=== PATIENT | female | born 1945 | race Caucasian/White ===

== ENCOUNTER → 2023-08-02 08:10 | Outpatient (REF) | payer MEDICARE, OTHER, SELFPAY | LOC: RAD 08:10 | PROVIDERS: ATTENDING PHYSICIAN Nurse Practitioner | DX: E01.0 Iodine-deficiency related diffuse (endemic) goiter (principal); R13.10 Dysphagia, unspecified | CPT/HCPCS: 74230; 76536; 92611 ==

== ENCOUNTER → 2023-08-16 08:09 | Outpatient (REF) | payer MEDICARE, OTHER, SELFPAY | LOC: RAD 08:09 | PROVIDERS: ATTENDING PHYSICIAN Nurse Practitioner | DX: R09.89 Other specified symptoms and signs involving the circulatory and respiratory systems (principal) | CPT/HCPCS: 93880 ==

== ENCOUNTER → 2023-08-22 12:04 | Outpatient (REF) | payer MEDICARE, OTHER, SELFPAY ==
[2023-08-22 14:53] LABS: Blood Urea Nitrogen 18 mg/dl (7-17); Calcium 9.2 mg/dl (8.4-10.2); Carbon Dioxide 33 mmol/L (22-30); Chloride 100 mmol/L (98-107); Glucose 96 mg/dl (70-99); Potassium 3.8 mmol/L (3.5-5.1); Sodium 137 mmol/L (135-145); eGFR > 60.00
== END ==
LOC: HWLAB 12:04
PROVIDERS: ATTENDING PHYSICIAN Surgery Vascular Surgery; FAMILY PHYSICIAN Nurse Practitioner
DX: I65.23 Occlusion and stenosis of bilateral carotid arteries (principal)
CPT/HCPCS: 36415; 80048

== ENCOUNTER → 2023-08-28 08:44 | Outpatient (REF) | payer MEDICARE, OTHER, SELFPAY | LOC: HWRAD 08:44 | PROVIDERS: ATTENDING PHYSICIAN Surgery Vascular Surgery; FAMILY PHYSICIAN Nurse Practitioner | DX: I65.23 Occlusion and stenosis of bilateral carotid arteries (principal) | CPT/HCPCS: 70496; 70498; Q9967 ==

== ENCOUNTER 2023-09-24 07:04 | Inpatient (IN) | payer MEDICARE, OTHER, SELFPAY ==
[2023-09-20 09:22] VITALS: BMI 18.6
[2023-09-20 09:45] LABS: % Basophils 0.1 % (0-2); % Immature Granulocytes 0.2 % (0-0.5); % Lymphocytes 21.2 % (20.5-51.1); % Monocytes 7.4 % (1.7-9.3); % Neutrophils 70.1 % (42.2-75.2); Absolute Eosinophils 0.1 10^3/uL (0-0.7); Absolute Lymphocytes 1.9 10^3/uL (1.2-3.4); Absolute Monocytes 0.7 10^3/uL (0.1-0.6); Absolute Neutrophils 6.1 10^3/uL (1.4-6.5); Hematocrit 39.9 % (37.0-47.0); Hemoglobin 13.6 g/dL (12.0-16.0); Mean Corp Hgb Conc. 34.1 g/dL (33.0-37.0); Mean Corpuscular Hgb 30.2 pg (27.0-31.0); Mean Corpuscular Volume 88.7 fL (81.0-99.0); Mean Platelet Volume 11.7 fL (7.4-10.4); Nucleated Red Blood Cells % 0 %; Platelet Count 158 10^3/uL (130-400); Red Cell Dist. Width 13.2 % (11.5-14.5); White Blood Cell Count 8.8 10^3/uL (4.8-10.8)
[2023-09-20 09:54] LABS: PT 13.2 Sec (11.4-14.6)
[2023-09-20 09:55] LABS: APTT 34.4 Sec (23.4-35.0)
[2023-09-20 09:58] LABS: Blood Urea Nitrogen 18 mg/dl (7-17); Calcium 9.3 mg/dl (8.4-10.2); Carbon Dioxide 28 mmol/L (22-30); Chloride 105 mmol/L (98-107); Estimated Creatinine Clearance 55 ml/min; Glucose 162 mg/dl (70-99); Potassium 4.1 mmol/L (3.5-5.1); Sodium 137 mmol/L (135-145); eGFR > 60.00
[2023-09-24] VITALS (9 sets, daily range): BP systolic 129–188; BP diastolic 51–83; BMI 17.2; BMI 17.4
[2023-09-24] MEDS: PERIDEX 0.12% ORAL RINSE 15 ML PO (07:41)
[2023-09-24] MEDS: BACTROBAN NASAL 1 GRAM NASAL (07:41)
[2023-09-24] MEDS: NSS 500 IV (07:41)
--- NOTE | 2023-09-24 08:57 | W.SUR.PREOP ---
Pre-Operative Surgical Note
-
I have examined this patient prior to the performance of the scheduled procedure.
The patient's condition is unchanged from the time of the current History and
Physical and the patient is able to undergo the scheduled procedure.
--- NOTE | 2023-09-24 09:24 | PTCARENOTE ---
DELAY DUE TO EMERGENT CASE WITH DR DICKINSON, PT CONTACT MADE AWARE.
[2023-09-24] MEDS: VANCOCIN 200 IV (10:20)
[2023-09-24 12:38] LABS: ACT-LR - POC 376 Seconds (116-155)
[2023-09-24 13:34] LABS: ACT-LR - POC 287 Seconds (116-155)
--- NOTE | 2023-09-24 14:30 | W.IMMPOSTOP ---
Surgical Immed Post Op Note
-
Primary Surgeon: Uriel Sotomayor III, MD
Assisting Surgeon: Ras Gallego MD
Pre-op Diagnosis: Bilateral Carotid Stenosis
Post-op Diagnosis: Bilateral Carotid Stenosis
Procedure Performed: LEFT carotid endarterectomy
Anesthesia Type: General
Specimen / Cultures: NA
Estimated Blood Loss: 12cc
Complications: NA
Operative Findings:
Patient was prepped and draped in standard fashion. A 6cm incision was made and the carotid was dissected free. Proximal and distal control were obtained. Heparin was administered. A carotid arteriotomy was performed extending from the common
carotid to the proximal internal carotid. A shunt was subsequently placed and a freer was used to remove calcified plaque from the lumen. A piece of bovine pericardial patch was brought into the field and shaped to fit the site. The patch was then
sewn to the arteriotomy with a running 6-0 polypropylene suture. Hemostasis was confirmed, and the overlying muscle, subcutaneous tissue, and skin were closed with 2-0 vicryl, 3-0 vicryl, and 4-0 monocryl. Adhesive skin glue was applied above.
[2023-09-24] MEDS: CARDENE 200 IV (14:32)
[2023-09-24 14:35] LABS: Hematocrit 41.5 % (37.0-47.0); Hemoglobin 13.8 g/dL (12.0-16.0); Mean Corp Hgb Conc. 33.3 g/dL (33.0-37.0); Mean Corpuscular Volume 90.2 fL (81.0-99.0); Mean Platelet Volume 11.1 fL (7.4-10.4); Platelet Count 192 10^3/uL (130-400); Red Cell Dist. Width 13.1 % (11.5-14.5); White Blood Cell Count 14.1 10^3/uL (4.8-10.8)
--- NOTE | 2023-09-24 14:38 | CON.INTV ---
Consultation
Consultation Request
Date/Time Consultation Requested: 09/24/2023 - 121
Date/Time Consultation Performed: 09/24/2023 - 0
Requesting Provider: Colleen MOTT
Performing Provider: Osmel Bolton MD
Reason for Consultation: s/p left CEA
Medical History
-
Chief Complaint: Elective L-CEA
History of Present Illness:
77-year-old female active tobacco smoker with a past medical history of sleep apnea, PVD with claudication s/p right iliac artery stent, COPD, hyperlipidemia/hypertension who presents for elective left-sided carotid endarterectomy. Patient known to
[facility] via Dr. Sotomayor, with last office visit on 08/21/2023. At that office visit her imaging via CT angiogram was reviewed and she has severe bilateral carotid artery disease. 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
arterial disease with diffusely small caliber right common carotid artery with retrograde flow, making surgical intervention high risk. She has a high-grade left carotid artery stenosis that is amenable to surgical intervention and it was
recommended to proceed with a left-sided carotid endarterectomy. Operative risks and benefits were discussed and patient agreed to this procedure. Today she underwent left-sided carotid endarterectomy, with a EBL 12 cc and no immediate
complications. Patient was transferred to the ICU for postoperative care and riding teacher services consulted for additional management/recommendations.
When I saw the patient she was in bed, lethargic but easily arousable to voice, and desaturating to 87-88% with phlegm that you could hear when she coughed but she was not sufficiently expectorating despite me and the nurse encouraging her to do so.
Current heart rate 109, BP 129/55 and SpO2 92% on 5 L/min nasal cannula. Patient denies chest pain, headache, abdominal pain, fevers or chills. She mainly wanted to be left alone so she can go back to sleep.
Of note she follows with us in the office and last saw Joycelyn Johnson and Tianna Veloz on 04/30/2023 due to a hospital discharge follow-up with COPD. She was started on Anoro at that time and spirometry at that visit showed moderate obstruction. 6MWT
was stable without any need for O2 at that time. She was smoking a pack a day at that visit and admitted to smoking 1 PPD X 56 years. Smoke cessation was strongly encouraged. She had a CTA of the chest on 03/30/2023 showing mild GGO's in the RUL
with bilateral lower lobe peribronchial thickening with mucous plugging in the RLL. Repeat CT chest without contrast performed 2 months later showed resolution of the GGO in the RUL and mild paraseptal emphysema.
PMHx: Hyperlipidemia, chronic airway obstruction NEC, vitamin D deficiency, sleep apnea, PVD with claudication, JACINTA, anxiety, basal cell carcinoma, hypertension, PAD s/p right iliac artery stent, COPD, allergic rhinitis
PSHx: Ulnar nerve transposition, cholecystectomy, right-sided iliac artery stent ([facility] � 2010)
Past Medical History
Past Medical History: Other (Above as per HPI)
Past Surgical History: Other (Above as per HPI)
Social History
Tobacco: Smoker (1 PPD x 30 years)
Alcohol: None
Drug: None
Family History
Family History: Cancer (Father & brother (prostate cancer); mother (throat cancer))
Allergies / Home Medications
Allergies
Allergy/AdvReac Type Severity Reaction Status Date / Time
amoxicillin Allergy Rash Verified 09/24/23 07:48
atorvastatin [From Lipitor] Allergy muscle Verified 09/24/23 07:47
cramps
Cephalosporins Allergy Rash Verified 09/24/23 07:49
clarithromycin Allergy Rash Verified 09/24/23 07:48
levofloxacin [From Levaquin] Allergy Unknown Verified 09/24/23 07:48
niacin Allergy Unknown Verified 09/24/23 07:50
pneumococcal vaccine Allergy Swelling Verified 09/24/23 07:49
Sulfa (Sulfonamide Allergy Rash Verified 09/24/23 07:47
Antibiotics)
sulfisoxazole Allergy Rash Verified 09/24/23 07:47
potasium clavunate Allergy Unknown Uncoded 09/24/23 07:50
Home Medications
Medication Instructions Recorded Confirmed Last Taken Type
albuterol sulfate 90 mcg/actuation 2 puff inhalation R Q4 PRN 03/30/23 09/24/23 Unknown History
aerosol inhaler sob/wheezing
aspirin 325 mg tablet 325 mg PO HS Blood Clot 03/30/23 09/24/23 09/23/23 18:00 History
Prevention/Tx
losartan 50 mg tablet 50 mg PO HS Blood Pressure 03/30/23 09/24/23 09/23/23 18:00 History
pravastatin 80 mg tablet 80 mg PO HS High Cholesterol 03/30/23 09/24/23 09/23/23 18:00 History
cholecalciferol (vitamin D3) 25 1,000 mcg PO WEEKLY Supplement 09/14/23 09/24/23 09/22/23 History
mcg (1,000 unit) tablet (Vitamin
D3)
budesonide 160 mcg-glycopyr 9 2 inh inhalation BID 09/24/23 09/24/23 09/23/23 18:00 History
mcg-formot 4.8 mcg/actuation HFA Lung/Breathing Issues
inhaler (Breztri Aerosphere)
naproxen 500 mg tablet 500 mg PO BID PRN pain general 09/24/23 09/24/23 Unknown History
omeprazole 40 mg capsule,delayed 40 mg PO DAILY gerd 09/24/23 09/24/23 09/23/23 18:00 History
release
Review of Systems
-
Unable to Obtain full review of systems at this time due to: Acuity
Vitals / Labs / Diagnostic Testing
Vital Signs
Temp Pulse Resp BP Pulse Ox
97.4 F 104 15 129/55 94
09/24/23 15:58 09/24/23 16:30 09/24/23 16:30 09/24/23 16:15 09/24/23 16:30
Lab Data
09/24/23 14:25
03/25/24 14:25
Laboratory Results
09/24/23
14:25
PT 14.5
INR 1.15
APTT 39.7 H
Diagnostic Testing:
Physical Exam
-
HEENT: Normocephalic and Anicteric
Cardiovascular: S1/S2 and Peripheral Edema (negative)
Respiratory: Wheeze (Occasionally heard in the left posterior midlung region), Rales (Bibasilar), Rhonchi (Bilaterally) and Accessory Resp Muscle Use (negative)
GI: Soft, Non Distended and Normal Bowel Sounds
Neurology: Awake and Alert
Skin: Warm and Dry
General: Comfortable and Chills (negative)
Assessment
-
Assessment: 77-year-old female active tobacco smoker with a past medical history of sleep apnea, PVD with claudication s/p right iliac artery stent, COPD, hyperlipidemia/hypertension who presents for elective left-sided carotid endarterectomy.
Patient known to [facility] via Dr. Sotomayor, with last office visit on 08/21/2023. At that office visit her imaging via CT angiogram was reviewed and she has severe bilateral carotid artery disease. 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
severe innominate arterial disease with diffusely small caliber right common carotid artery with retrograde flow, making surgical intervention high risk. She has a high-grade left carotid artery stenosis that is amenable to surgical intervention
and it was recommended to proceed with a left-sided carotid endarterectomy. Operative risks and benefits were discussed and patient agreed to this procedure. On 09/24/2023 she underwent left-sided carotid endarterectomy, with a EBL 12 cc and no
immediate complications. Patient was transferred to the ICU for postoperative care and riding teacher services consulted for additional management/recommendations.
Chronic medical conditions NIGHT CLERK: Hyperlipidemia, chronic airway obstruction NEC, vitamin D deficiency, sleep apnea, PVD with claudication, JACINTA, anxiety, basal cell carcinoma, hypertension, PAD s/p right iliac artery stent, COPD, allergic rhinitis
Impression:
#Bilateral carotid artery stenosis s/p left carotid endarterectomy � POD#0
#Leukocytosis
#Hyponatremia
#Moderate COPD with paraseptal emphysema (post-BD FEV1: 53% predicted via spirometry from 04/2023)
#Mild restrictive lung disease (post-BD FVC: 62% predicted via spirometry from 04/2023)
#Active tobacco use disorder
Plan:
Postoperative surgical intensive care unit monitoring
Supplemental oxygen as needed to maintain SpO2 >88%
On Muna as an outpatient - she is currently too lethargic to use MDI inhalers, so I will re-schedule these to tomorrow and use nebs for tonight
I will also start mucinex + mucomyst and flutter valve in attempt to improve pulmonary toilet
Incentive spirometry
Aspiration precautions
Maintain MAP>65
Neuro and vascular checks per protocol
Vascular surgery following-correspondence and operative notes reviewed
DVT prophylaxis
Early nutrition
Goal BG 140-180mg/dL
Early mobilization
Eventually she will need to follow-up with us in the office again for COPD management and tobacco use disorder that qualifies her for annual LDCT chest for lung cancer screening purposes. She last saw us on 04/30/2023 with TIERA Zaragoza and
Dr. Veloz.
I personally reviewed the patient's pertinent medical records including radiographs, microbiology, laboratory evaluations, and discussion with primary team, consultants, pharmacy, nutrition, physical therapy, case management, charge nurse, critical
care nursing, and respiratory therapy.
Critical care statement: A total of 44 minutes of critical care time was provided for this patient today. This includes management of unstable vital signs, evaluation of the patient at bedside, reviewing the patient's pertinent medical records
including radiographs, microbiology, laboratory evaluations, and discussion with primary team, consultants, pharmacy, nutrition, physical therapy, case management, charge nurse, critical care nursing, and respiratory therapy.
Data:
CTA head/neck with/without contrast 08-28-2023:
1. � No acute intracranial abnormality identified.
2. 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 Associated diffuse severely narrowed caliber of the right common carotid artery and the right internal carotid artery with threadlike opacification as above. Associated diffuse
narrowing of right middle cerebral territory vessels as compared with the left.
3. � Stenosis of the origin of the left internal carotid artery of approximately 72% secondary to calcific plaque.
4. � Diffuse narrow caliber of left posterior cerebral artery as compared with the right.
Outpatient [facility] Data:
PFT:
������ [place] 04/30/23: FVC 1.59/62%, FEV1 1/52%, ratio 63%, no significant BD response. Moderate obstruction and suggestive of mild restrictive pattern.
�������PFT 03/24/2015: FVC 1.79/60%, FEV1 1.21/54%, ratio 68%, no significant BD response, TLC 3.6/76%, DLCO 10.38/49%, DLCO/VA 3.21/72%. Moderate obstruction. Mild restriction. Moderately reduced diffusing capacity, improved with alveolar adjustment.
6 MWT:
������ 6MWT 04/30/23: At rest, O2 98% on room air, heart rate 85. With ambulation, O2 remained between 98 to 100% on room air, max heart rate 106. 0/10 on dyspnea scale. Ambulated 750 feet.
RADIOGRAPHIC STUDIES:
������ CT chest PE study 03/30/2023: No PE. Mild paraseptal emphysema in both lung apices. Small groundglass opacities in the right upper lobe which are nonspecific but could reflect a mild pneumonitis or potentially a mild viral pneumonia. Bilateral
lower lobe peribronchial thickening with mild mucous plugging in the right lower lobe.
�������CXR 03/30/23: NAD
�������CXR 10/21/2022: No acute disease
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
CARDIAC STUDIES:
������ Echo 03/30/2023: Mild concentric LVH. EF 54%. Mild MR. Mild .
LABS:
������ 04/02/2023: Hemoglobin 14.1
�������04/01/2023: Sputum positive for Pseudomonas aeruginoas
�������03/30/2023: proBNP 2039.
[2023-09-24 14:44] LABS: INR 1.15; PT 14.5 Sec (11.4-14.6)
[2023-09-24 14:45] LABS: APTT 39.7 Sec (23.4-35.0)
[2023-09-24 14:55] LABS: Blood Urea Nitrogen 17 mg/dl (7-17); Calcium 8.8 mg/dl (8.4-10.2); Carbon Dioxide 29 mmol/L (22-30); Chloride 104 mmol/L (98-107); Estimated Creatinine Clearance 55 ml/min; Glucose 125 mg/dl (70-99); Potassium 4.5 mmol/L (3.5-5.1); Sodium 133 mmol/L (135-145); eGFR > 60.00
[2023-09-24] MEDS: NSS 1000 IV (15:06)
[2023-09-24] MEDS: HEPARIN 5000 UNITS SC (17:40)
--- NOTE | 2023-09-24 17:55 | PTCARENOTE ---
Received pt from PACU s/p L carotid endarterectomy. Neuro checks as ordered. Pt remains drowsy. [place], No droop, follows commands. Pt very frustrated with frequency of neuro checks. Explained the necessity and pt verbalized understanding. Sinus
tachycardia 100-110s. Hypertension continues with Cardene gtt at 2.5mg/hr. Course Rhonchi, requiring 6L NC to maintain SpO2 88%. IS encourarged with pt voicing her dissatisfaction. L neck incision approximated, closed with derm glue. Using bed [place]
to void. A-line correlating with NIBP.
--- NOTE | 2023-09-24 18:28 | PTCARENOTE ---
Attempted to start 2nd IV, and after 3 failed attempts pt refused further IV sticks.
--- NOTE | 2023-09-24 18:46 | OR.RPT ---
Operative Report
Operative Report
Date of Operation: 09/24/2023
Pre Op Diagnosis: High-grade calcified left carotid stenosis, asymptomatic
Post Op Diagnosis: High-grade calcified left carotid stenosis, asymptomatic
Procedure: LEFT carotid endarterectomy with patch angioplasty using bovine pericardium
Surgeon: Uriel Sotomayor III, MD
Sandstone Inspector Repairer: Ras Gallego MD PGY-1
Anesthesia: General
Complications: None
History and Indications for Procedure: 77-year-old female with high-grade stenosis involving the left carotid artery.
Procedure in Detail: Nandini Hussein was correctly identified and placed supine on the operating table. After adequate induction of anesthesia the left neck was positioned, prepped and draped in the usual sterile fashion. Preoperative antibiotics
were administered. A timeout procedure was performed with the nursing and anesthesia staff confirming the patients identity as well as the nature and laterality of the procedure.
The carotid bifurcation was marked with ultrasound at the beginning of the case. The incision was planned accordingly. An incision was made along the anterior border of the left sternocleidomastoid muscle. Electrocautery was used to divide the
subcutaneous tissue and platysma. The carotid sheath was entered with sharp dissection. The internal jugular vein was retracted laterally. The vagus nerve was identified and protected throughout the case. The common carotid artery was identified at
the base of this incision and carefully encircled with a vessel loop. The patient was systemically heparinized. The dissection was continued distally towards the carotid bifurcation. The facial vein was skeletonized, ligated and divided between ties
and clips. The proximal external carotid artery was encircled with a vessel loop. The superior thyroid branch arose anteriorly from the distal common carotid artery. This was ligated and divided between silk ties. The distal internal carotid
artery was encircled with a vessel loop at a soft spot on the artery beyond the calcified plaque. The hypoglossal nerve was identified and protected.
The internal vessel loop was secured followed by the common and external. An arteriotomy was made on the distal common carotid artery with an 11-blade. This was extended proximally and distally with Martin scissors. The arteriotomy was extended
distally through the plaque to an area of normal appearing internal carotid artery. A 10 [place] shunt was inserted due to neuromonitoring changes. An endarterectomy was performed with a [place] elevator in the standard fashion. The proximal extent of
the plaque was transected with scissors. The distal end of the plaque in the internal carotid artery feathered very nicely with no distal intimal flap. The plaque extending into the external carotid artery was everted. Once the plaque was fully
removed the endarterectomy plane was irrigated with heparinized saline and any loose fronds of tissue were removed. A pre-cut piece of bovine pericardium was sewn in place using a running 6-0 Prolene suture. Prior to the completion of the patch the
common carotid was allowed to forward bleed and the external was allowed to back bleed. The shunt was removed prior to completion of the anastomosis. The area under the patch was irrigated with heparinized saline to remove any potential thrombus
or debris. The anastomosis was completed.
The external vessel loop was released first, followed by the common and then the internal. There was an excellent pulse in the distal internal carotid artery. An excellent quality Doppler signal in the distal internal carotid artery was also
confirmed. The patch suture line was closely inspected for hemostasis and was achieved. Protamine was administered. Hemostasis was achieved in the wound bed. The wound was irrigated with saline solution.
The wound was then closed in layers. Sterile dressings were applied. The patient awoke from anesthesia with no immediate neuro deficits and was taken to the PACU in stable condition.
Attestation: I was present and responsible for the entire procedure
Signed:
Uriel Sotomayor III, MD
[facility]
[phone] (iome)
--- NOTE | 2023-09-24 19:30 | PTCARENOTE ---
CXR completed at bedside. pt assisted with bedpan. pt desat to 76% on 10L MFNC, restless, lungs coarse t/o, +wet cough, RT called to bedside to admin neb, pt constantly moving trying to sit up/remove neb. ST HR high 120s. pt c/o headache.
BDoughertyNP present at bedside and aware of all findings. abg to lab. L neck incision WNL, Neuro checks unchanged. pt uncooperative at times with care and Neuro checks- pt states 'get off of my eyes' when attempting to check pupils and asked
repeatedly to participate when checking B/L extremity strength, pt educated on importance of checks s/p CEA. RFA IV WNL- IVF & cardene infusing per work list. L radial AL bleeding at site/dressing- drsg removed, connection tightened at hub,
redressed, still oozing. pt gradually recovered and appears restful and comfortable, Sat 90s after neb & acapela, bed alarm on.
[2023-09-24] MEDS: MUCOMYST 10% 4 ML INH (19:35)
[2023-09-24] MEDS: DUONEB 3 ML INH ×2 (19:35→23:39)
[2023-09-24 20:07] LABS: B.E. 2.3 mmol/L; HCO3 30.5 mmol/L (21-28); O2 Saturation % 92.5 % (94-98); PCO2 62 mmHg (32-35); PO2 65 mmHg (83-108); Potassium 4.4 mMOL/L (3.5-5.1); Sodium 134 mMOL/L (136-145)
[2023-09-24] MEDS: NICODERM TRANSDERMAL 21 MG TRANSDERM (20:17)
[2023-09-24] MEDS: PRAVACHOL PO (23:22)
[2023-09-24] MEDS: COZAAR PO (23:22)
[2023-09-24] MEDS: ASPIRIN PO (23:22)
[2023-09-25] VITALS (20 sets, daily range): BP systolic 108–163; BP diastolic 52–82; PULSE 111; O2SAT 94; BMI 16.5
--- NOTE | 2023-09-25 | PTCARENOTE ---
pt continues to be uncooperative at times with care, no changes in assessment. bed alarm on.
[2023-09-25] MEDS: HEPARIN 5000 UNITS SC ×4 (01:00→23:14)
[2023-09-25] MEDS: NSS 1000 IV (01:17)
[2023-09-25 03:41] LABS: Hematocrit 42.2 % (37.0-47.0); Hemoglobin 14.1 g/dL (12.0-16.0); Mean Corp Hgb Conc. 33.4 g/dL (33.0-37.0); Mean Corpuscular Hgb 29.7 pg (27.0-31.0); Mean Platelet Volume 11.4 fL (7.4-10.4); Platelet Count 200 10^3/uL (130-400); Red Blood Cell Count 4.74 10^6/uL (4.20-5.40); Red Cell Dist. Width 12.9 % (11.5-14.5); White Blood Cell Count 18.9 10^3/uL (4.8-10.8)
[2023-09-25 03:51] LABS: INR 1.05; PT 13.5 Sec (11.4-14.6)
[2023-09-25 03:52] LABS: APTT 37.5 Sec (23.4-35.0)
[2023-09-25] MEDS: DUONEB 3 ML INH ×2 (03:57→07:27)
--- NOTE | 2023-09-25 04:00 | PTCARENOTE ---
Reassessed, Leonard PENA oozinalysia- redressed. CHG cloths done, new linen, denture care. pt says she is 'aggravated' with Neuro checks, refusing to smile for assessment, oriented x 3 but does not listen to directions for care. pt given neb by RT- requires
staff to stay at bedside as she removes mask. attempts made to reeducate on importance of care. bed alarm on, call lofton with pt.
[2023-09-25] MEDS: CARDENE 200 IV (04:09)
[2023-09-25 04:22] LABS: Blood Urea Nitrogen 19 mg/dl (7-17); Carbon Dioxide 29 mmol/L (22-30); Chloride 101 mmol/L (98-107); Estimated Creatinine Clearance 52 ml/min; Glucose 103 mg/dl (70-99); Potassium 4.2 mmol/L (3.5-5.1); Sodium 136 mmol/L (135-145); eGFR > 60.00
[2023-09-25] MEDS: SPIRIVA RESPIMAT 2.5 MCG 2 PUFF INH (07:27)
[2023-09-25] MEDS: SYMBICORT 160/4.5 MCG INHALER 2 PUFF INH ×2 (07:28→19:56)
--- NOTE | 2023-09-25 07:40 | PTCARENOTE ---
pt aaox3. anxious about current condition. wants to get out of bed and go home. explained plan of care. and that she has pneumonia. pt states no pain. pt on 10 l mid flow. breath sounds course rhonchi. encouraged to cough and deep breath.
i/s encouraged. left neck wound teto c/d/i. left jaya oozing blood. dressing reinforced.
[2023-09-25] MEDS: MUCINEX 1200 MG PO ×2 (08:20→21:02)
[2023-09-25] MEDS: PROTONIX 40 MG PO (08:20)
[2023-09-25] MEDS: NICODERM TRANSDERMAL 21 MG TRANSDERM (08:20)
--- NOTE | 2023-09-25 08:24 | W.PN.INTV ---
Addendum entered and electronically signed by Osmel Bolton MD 09/25/23 18:26:
Additional physical exam:
Neurology: Preserved sensation to light touch in all extremities and face; health psychologist strength is 5/5 on left hand + 4/5 on right hand; plantar-flexion is 5/5 on the right foot + 4/5 on left foot; patient had difficulty understanding how to perform
dorsiflexion on both feet. She had normal shoulder shrug, normal tongue protrusion with lateral tongue deviation; she was able to close her eyes and resist me opening them; she had difficulty understanding how to perform the H-test, although she
did have a normal extraocular eye movement to the right upper outer quadrant, right lower outer quadrant, and some difficulty looking towards the left but uncertain if this was due to her misunderstanding my instructions or due to a true deficit;
smiling with no apparent flattening of her nasolabial folds bilaterally; she says that her head feels numb but she denies headache or confusion.
Original Note:
Today's Communication / Plan
Recommendations
Start antibiotics
Continue aspiration precautions
Encourage incentive spirometer and up OOB as tolerated
Stroke alert called today with no acute pathology seen on CTA head/neck or CT head without contrast � continue with q1h neurochecks as per neurology
Repeat CT head stat for any acute change in neurological status or NIHSS
Continue with Symbicort/Spiriva with nebulized albuterol TID and prn nebulized bronchodilators, and mucolytics with pulmonary toilet/flutter valve
May need bronchoscopy if her CXR becomes atelectatic
Assessment
-
Assessment: 77-year-old female active tobacco smoker with a past medical history of sleep apnea, PVD with claudication s/p right iliac artery stent, COPD, hyperlipidemia/hypertension who presents for elective left-sided carotid endarterectomy.
Patient known to [facility] via Dr. Sotomayor, with last office visit on 08/21/2023. At that office visit her imaging via CT angiogram was reviewed and she has severe bilateral carotid artery disease. 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
severe innominate arterial disease with diffusely small caliber right common carotid artery with retrograde flow, making surgical intervention high risk. She has a high-grade left carotid artery stenosis that is amenable to surgical intervention
and it was recommended to proceed with a left-sided carotid endarterectomy. Operative risks and benefits were discussed and patient agreed to this procedure. On 09/24/2023 she underwent left-sided carotid endarterectomy, with a EBL 12 cc and no
immediate complications. Patient was transferred to the ICU for postoperative care and program arranger services consulted for additional management/recommendations.
Chronic medical conditions DIGITAL ASSOCIATE: Hyperlipidemia, chronic airway obstruction NEC, vitamin D deficiency, sleep apnea, PVD with claudication, JACINTA, anxiety, basal cell carcinoma, hypertension, PAD s/p right iliac artery stent, COPD, allergic rhinitis
Impression:
#Bilateral carotid artery stenosis s/p left carotid endarterectomy � POD#1
#Left pronator drift - stroke alert called and no evidence of CVA per brain imaging
#Leukocytosis - worsening
#Multifocal CAP (RUL/RML and LLL) with Hx of Pseudomonas auruginosa seen on sputum Cx
#Hyponatremia - improved
#Moderate COPD with paraseptal emphysema (post-BD FEV1: 53% predicted via spirometry from 04/2023)
#Mild restrictive lung disease (post-BD FVC: 62% predicted via spirometry from 04/2023)
#Active tobacco use disorder
Plan:
Postoperative surgical intensive care unit monitoring
Supplemental oxygen as needed to maintain SpO2 >88% and wean as tolerated
She will need walking pulse oximetry prior to discharge
On Breztri as an outpatient - given her lethargic state has resolved, ok to resume Symbicort and Spiriva
I will also continue mucinex + mucomyst (TID) with flutter valve in attempt to improve pulmonary toilet
Continue incentive spirometry
Aspiration precautions
Start ABx with Zosyn given her worsening leukocytosis with RUL opacity and left basilar opacity seen on CXR
Maintain MAP>65
She will need repeat CT chest in 6-8 weeks to assure her multifocal consolidations resolve
Neurovascular checks per protocol
Assure neurochecks are q1hr given her stroke-like symptoms this AM
Vascular surgery following-correspondence and operative notes reviewed
DVT prophylaxis: HSQ
Early nutrition
Goal BG 140-180mg/dL
Early mobilization
Eventually she will need to follow-up with us in the office again for COPD management and tobacco use disorder that qualifies her for annual LDCT chest for lung cancer screening purposes. She last saw us on 04/30/2023 with TIERA Zaragoza and
Dr. Veloz.
I personally reviewed the patient's pertinent medical records including radiographs, microbiology, laboratory evaluations, and discussion with primary team, consultants, pharmacy, nutrition, physical therapy, case management, charge nurse, critical
care nursing, and respiratory therapy.
Critical care statement: A total of 41 minutes of critical care time was provided for this patient today. This includes management of unstable vital signs, evaluation of the patient at bedside, reviewing the patient's pertinent medical records
including radiographs, microbiology, laboratory evaluations, and discussion with primary team, consultants, pharmacy, nutrition, physical therapy, case management, charge nurse, critical care nursing, and respiratory therapy.
Data:
CTA Head/Neck - stroke alert - 09/25/2023:
Patent left internal carotid artery, following recent carotid endarterectomy with postsurgical changes seen within the accompanying/adjacent soft tissues.
Findings again seen suggesting marked stenosis, possible near occlusion of the right brachiocephalic artery, somewhat limited in evaluation at this time due to adjacent venous contrast.
Diffuse marked narrowing/caliber of the right common carotid and right internal carotid arteries again seen as well as some diffuse narrowing of the right middle cerebral artery as compared to the left middle cerebral artery, overall without
significant change.
NEW MARKED CONSOLIDATIONS of the portions of the right upper lobe and left lower lobe of the lung in the interval since recent prior study. Consider endobronchial obstruction such as secretions.
CTA head/neck with/without contrast 08-28-2023:
1. � No acute intracranial abnormality identified.
2. 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 Associated diffuse severely narrowed caliber of the right common carotid artery and the right internal carotid artery with threadlike opacification as above. Associated diffuse
narrowing of right middle cerebral territory vessels as compared with the left.
3. � Stenosis of the origin of the left internal carotid artery of approximately 72% secondary to calcific plaque.
4. � Diffuse narrow caliber of left posterior cerebral artery as compared with the right.
CT Head without contrast 09-25-2023: No acute intracranial abnormality.
CXR 09-25-2023:
Vague right upper lobe opacity which could represent pneumonia, slightly improved
New left basilar opacity which could represent subsegmental atelectasis and/or pneumonia. Cannot exclude small left pleural effusion.
CXR 09-24-2023: Right upper lobe pneumonia
Outpatient [facility] Data:
PFT:
������ [place] 04/30/23: FVC 1.59/62%, FEV1 1/52%, ratio 63%, no significant BD response. Moderate obstruction and suggestive of mild restrictive pattern.
�������PFT 03/24/2015: FVC 1.79/60%, FEV1 1.21/54%, ratio 68%, no significant BD response, TLC 3.6/76%, DLCO 10.38/49%, DLCO/VA 3.21/72%. Moderate obstruction. Mild restriction. Moderately reduced diffusing capacity, improved with alveolar adjustment.
6 MWT:
������ 6MWT 04/30/23: At rest, O2 98% on room air, heart rate 85. With ambulation, O2 remained between 98 to 100% on room air, max heart rate 106. 0/10 on dyspnea scale. Ambulated 750 feet.
RADIOGRAPHIC STUDIES:
������ CT chest PE study 03/30/2023: No PE. Mild paraseptal emphysema in both lung apices. Small groundglass opacities in the right upper lobe which are nonspecific but could reflect a mild pneumonitis or potentially a mild viral pneumonia. Bilateral
lower lobe peribronchial thickening with mild mucous plugging in the right lower lobe.
�������CXR 03/30/23: NAD
�������CXR 10/21/2022: No acute disease
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
CARDIAC STUDIES:
������ Echo 03/30/2023: Mild concentric LVH. EF 54%. Mild MR. Mild .
LABS:
������ 04/02/2023: Hemoglobin 14.1
�������04/01/2023: Sputum positive for Pseudomonas aeruginoas
�������03/30/2023: proBNP 2039.
Subjective Dataa
Subjective Data
Date of Service:
Date of Service: September 25, 2023
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
Subjective:
Stroke alert called today due to left arm weakness. When I saw the patient neurology was already evaluating her and stat imaging was performed with CTA head/neck showing a patent left ICA and marked stenosis with possible near occlusion of the
right brachiocephalic artery. Also diffuse marked narrowing/caliber of the right common carotid and right ICA with diffuse narrowing of the right MCA. CT head shows no acute intracranial abnormality. When patient came back from imaging she was in
no acute distress, speaking to me with no slurred speech or confusion. She feels much better today than she did yesterday. Current BP 127/58, heart rate 102 and saturating 98% on 10 L/min midflow nasal cannula.
Review of Systems
General: Other (12 point ROS performed and is negative unless mentioned above.)
Objective Data
Data Reviewed
Vital Signs / I&O / Oxygen:
Vital Signs
Temp Pulse Resp BP Pulse Ox
98.5 F 102 18 129/55 90
09/25/23 07:53 09/25/23 07:31 09/25/23 07:31 09/24/23 16:15 09/25/23 07:39
Intake and Output
09/24/23 09/25/23 09/26/23
06:59 06:59 06:59
Intake Total 1395.5 / 1575.5 180 / 180
Output Total 1475 / 1475
Balance -79.5 / 100.5 180 / 180
SaO2 90
Nasal Cannula flow liters per 10
minute
Physical Exam
General: Comfortable
HEENT: Normocephalic and Anicteric
Cardiovascular: S1-S2 and Peripheral Edema (negative)
Respiratory: Wheeze (negative), Crackles ([place] best in the left posterior midlung region), Rhonchi (negative) and Non-Labored Respirations
GI: Soft, Non Distended and Non Tender
Neurology: Awake and Alert
Skin: Warm and Dry
Labs/Micro/Reports
Lab Data
09/25/23 03:18
09/25/23 03:18
Laboratory Results
09/24/23 09/24/23 09/25/23
14:25 19:58 03:18
PT 14.5 13.5
INR 1.15 1.05
APTT 39.7 H 37.5 H
pH 7.30 L
pCO2 62 H
pO2 65 L
HCO3 30.5 H
O2 Delivery Level
--- NOTE | 2023-09-25 09:01 | PTCARENOTE ---
jaya bobo/kristi'jeramie. pressure applied for 15 minutes. nss running as ordered. pt oob to bathroom and then chair with one person assist. pt unsteady on feet. chair alarm placed under pt. pt eating breakfast and coughing up eggs. states she is having
problems swallowing. pt made npo speech consulted. bp taken on left arm much higher than right. pt protecting left arm and not using it. pt able to move it with strength. no other neuro changes noted.
--- NOTE | 2023-09-25 09:06 | W.PN.VS ---
Addendum entered and electronically signed by Uriel Sotomayor III, MD 09/25/23 10:23:
This patient was seen and examined with TIERA Anton. I agree with the history and physical exam as well as the assessment and plan. I have the following additions:
Following initial evaluation this morning patient began to have left upper extremity weakness
Stat CTA performed and I personally reviewed the images.
The left carotid endarterectomy is widely patent
Severe right innominate calcified stenosis/occlusion known preop along with right common carotid occlusion
Neurology evaluating
Signed:
Uriel Sotomayor III, MD
[facility] V[facility] Surgery
[phone] (gxil)
Original Note:
Today's Communication / Plan
-
Seen and assessed with Dr. Sotomayor
Assessment/Plan
-
POD 1 LEFT carotid endarterectomy with patch angioplasty using bovine pericardium
Plan:
-DC A-line
-DC IV fluids
-Out of bed to chair, ambulation
-Wean O2
-Chest xray
-Will [place] back to reassess respiratory status
Subjective Data
-
Date of Service: September 25, 2023
Patient seen at bedside this a.m. with Dr. Sotomayor. Patient offers no complaints at this time. No events overnight. Patient on 10 L of O2 via nasal cannula.
Objective Data
-
Vital Signs
Temp Pulse Resp BP Pulse Ox
98.5 F 102 18 129/55 90
09/25/23 07:53 09/25/23 07:31 09/25/23 07:31 09/24/23 16:15 09/25/23 07:39
Intake and Output
09/24/23 09/25/23 09/26/23
06:59 06:59 06:59
Intake Total 1395.5 / 1575.5 180 / 180
Output Total 1475 / 1475
Balance -79.5 / 100.5 180 / 180
Intake:
Oral fluids 100 / 100
IV fluids (Total) 1395.5 / 1475.5 80 / 80
Cardene 175.5 / 175.5
normal saline 1220 / 1300 80 / 80
Output:
Urine, Voided 1474
Other:
Number of approximated MODERATE 3
amounts of urine
Lab Results
09/25/23 03:18
09/25/23 03:18
Calcium 9.0 mg/dl (8.4-10.2) 09/25/23 03:18
Physical Exam
-
AAOx3
No tachypnea on 10 L nasal cannula
Mildly tachycardic in the 110s
Neck site flat, soft, clean dry and intact
Moves all extremities equally
Tongue midline
--- NOTE | 2023-09-25 09:08 | PTCARENOTE ---
pt has a very moist productive cough. bringing up thick fierro. pt using Yankauer.
--- NOTE | 2023-09-25 09:20 | W.PN.UPDATE ---
Update Note
Progress Note Update
Notified by bedside RNRhona that patient is reporting LUE weakness, reported to bedside for immediate assessment. Patient denies vision changes, dysarthria, aphasia, and BL LE weakness. She does report LUE weakness described as a 'heavy'
feeling. Patient noted to have left upper extremity drift and stroke alert/rapid response activated. No evidence of BL LE weakness, facial droop, or speech changes. Patient taken to CT per protocol with this provider, RN, and neurologist Dr. Nolan.
--- NOTE | 2023-09-25 09:59 | CON.NEURO ---
Neuro Assessment/Plan
Assessment
IMPRESSIONS/RECOMMENDATIONS:
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
Most likely due to right MCA acute ischemic stroke
Patient was not a candidate for either tenecteplase or clot retrieval due to absence of clot for retrieval, as well as recent significant surgical intervention
Plan
Check urgent CT of head as well as CTA head and neck (completed)
If possible, add clopidogrel 75 mg daily
Continue aspirin
Check lipid profile, Continue pravastatin 80 mg
Smoking cessation counseling
Speech therapy and physical therapy as well as Occupational Therapy evaluations
Check MRI of brain when patient is stable
Smoking cessation educational materials to be provided
Allow permissive hypertension up to 220/120
Will continue to follow patient, peripherally
Consultation
Order
Date of Consultation: 09/25/23
Requesting Provider: Vascular surgery
Reason for Consult: Stroke alert
Subjective/Objective
Subjective Data
Date of Service: September 25, 2023
Patient was admitted following planned, needed left carotid endarterectomy due to severe stenosis. The patient underwent the procedure 1 day ago without significant complications and was transferred to this hospital's intensive care unit.
Today, the patient had sudden onset of left arm weakness which was persistent and led to stroke alert initiation. There are no known modifying factors. There are no associated symptoms. No prior episodes which were similar.
Objective Data
Vital Signs
Temp Pulse Resp BP Pulse Ox
36.9 C 102 18 129/55 90
09/25/23 07:53 09/25/23 07:31 09/25/23 07:31 09/24/23 16:15 09/25/23 07:39
Lab Results
09/25/23 03:18
09/25/23 03:18
PT 13.5 Sec (11.4-14.6) 09/25/23 03:18
INR 1.05 09/25/23 03:18
APTT 37.5 Sec (23.4-35.0) H 09/25/23 03:18
Sodium 136 mmol/L (135-145) 09/25/23 03:18
Potassium 4.2 mmol/L (3.5-5.1) 09/25/23 03:18
BUN 19 mg/dl (7-17) H 09/25/23 03:18
Glucose 103 mg/dl (70-99) H 09/25/23 03:18
Calcium 9.0 mg/dl (8.4-10.2) 09/25/23 03:18
Patient Allergies
amoxicillin Allergy (Verified 09/24/23 07:48)
Rash
atorvastatin [From Lipitor] Allergy (Verified 09/24/23 07:47)
muscle cramps
Cephalosporins Allergy (Verified 09/24/23 07:49)
Rash
clarithromycin Allergy (Verified 09/24/23 07:48)
Rash
levofloxacin [From Levaquin] Allergy (Verified 09/24/23 07:48)
Unknown
niacin Allergy (Verified 09/24/23 07:50)
Unknown
pneumococcal vaccine Allergy (Verified 09/24/23 07:49)
Swelling
Sulfa (Sulfonamide Antibiotics) Allergy (Verified 09/24/23 07:47)
Rash
sulfisoxazole Allergy (Verified 09/24/23 07:47)
Rash
potasium clavunate Allergy (Uncoded 09/24/23 07:50)
Unknown
CVA Assessment
Onset of Stroke Symptoms
Onset of symptoms known: Yes
Date of onset of symptoms: 09/25/23
Time of onset of symptoms: 09:00
Time pt last seen normal is known: Yes
Date last time pt seen normal: 09/25/23
Time last time pt seen normal: 09:00
NIH Stroke Score
Level of Consciousness: 1 - Arousable
LOC Questions: 0-Answers both correctly
LOC Commands: 0-Performs both correctly
Best Horizontal Gaze: 0-Normal
Visual [place]: 0=Normal, no visual loss
Facial Palsy: 0=Normal, symmetrical
Motor - Right Arm: 0=No drift 10 seconds
Motor - Left Arm: 1=Drift < 10 seconds
Motor - Right Le-No drift 5 seconds
Motor - Left Le-No drift 5 seconds
Limb Ataxia: 0-Absent
Sensation: 0-Normal
Best Language: 0-No aphasia
Dysarthria: 1-Mild slurring
Extinction and Inattention: 0-No abnormality
Total Score:: 3
Tenecteplase Contraindications
Inclusion and Exclusion criteria reviewed: Yes
Reasons for NON-Tx with Thrombolytics POSSIBLE Exclusions: Major surgery or serious trauma within proceding 14 days
Review of Systems
-
History Source: Patient
All other systems: Reviewed and negative
EENT: Negative Swallowing Difficulty
Respiratory: Negative Trouble Breathing
Cardiac: Negative Chest Pain
Musculoskeletal: Negative Back Pain or Neck Pain
Neuro: Negative Dizzy or Headache
Physical Exam
-
General: No Apparent Distress, Appears Chronically Ill, Appears Stated Age and Wearing Oxygen
Eyes: OU Absent Papilledema, Round OU, [place] Conjunctivae and No Ptosis
HEENT: Anicteric and Moist Mucous Membranes
Neck: Full Range of Motion
Respiratory: No Dyspnea
Cardiac: No JVD
GI: Non-distended
Skin: Unremarkable
Extremities: No Clubbing, No Cyanosis and No Edema
Psych: Negative Intact Judgement/Insight
Extended Neurological Exam
Mood & Affect: Anxious
Attention Span & Concentration: Awake, Interactive and No Difficulty with 2 Step Request
Memory: Unremarkable
Tremor: Hand Tremor Absent and Head Tremor Absent
Involuntary Movement: None
Speech: Quantity Unremarkable and Dysarthric
Cranial Nerve II: Left Eye: Pupillary Reactivity Unremarkable, Pupillary Size Unremarkable and Visual [place] Intact
Cranial Nerve II: Right Eye: Pupillary Reactivity Unremarkable, Pupillary Size Unremarkable and Visual [place] Intact
Cranial Nerves III, IV, : Extraocular Movement: Extraocular Movement Full in all Directions
Cranial Nerve VII: Facial Symmetry: Normal Facial Symmetry
Cranial Nerve VIII: Hearing: Unremarkable Hearing to Normal Conversational Volume
Cranial Nerves IX, X: Palate Movement: Palate Elevation Symmetric
Cranial Nerve XI: Shoulder Shrug: Unremarkable
Cranial Nerve XII: Tongue Protusion: Midline
Muscle Bulk & Tone: Bulk Unremarkable and Tone Unremarkable
Deep Tendon Reflexes: Unremarkable Throughout
Touch Sensation: Unremarkable
Coordination: [id number]-wwrb-[id number] Testing Unremarkable
Babinski Sign: Absent Bilaterally
Gait & Station: Unable to Assess
Data Reviewed
-
CT-A: Report Reviewed and Image Reviewed
CT Head: Report Reviewed and Image Reviewed
Labs: Report Reviewed
Lipid Profile: Ordered
Reviewed with: Physician, Nurse, Nurse Practioner and Patient
Old Records: Summarized
Medications
-
Active Medications
Generic Name Dose Route Start Last Admin
Trade Name Freq PRN Reason Stop Dose Admin
Acetaminophen 650 mg 09/24/23 12:19
Acetaminophen 325 Mg Tablet PO 10/22/23 12:18
Q4HPRN PRN
mild pain or temp >/= 100.4 F
Albuterol 2 puff 09/24/23 12:24
Albuterol Hfa [90 Mcg/Dose] Inhaler INH
R Q4HPRN PRN
sob/wheezing
Protocol
Aspirin 325 mg 09/24/23 22:00 09/24/23 23:22
Aspirin 325 Mg Tablet PO 10/22/23 21:59 Not Given
HS ELODIA
Budesonide/Formoterol Fumarate 2 puff 09/25/23 08:00 09/25/23 07:28
Symbicort Inhaler 160/4.5 INH 10/23/23 07:59 2 puff
R BID ELODIA Administration
Protocol
Cholecalciferol 1,000 mcg 10/01/23 08:00
Cholecalciferol (Vitamin D3) 125 Mcg Tablet (5,000 Units) PO 10/29/23 07:59
WEEKLY ELODIA
Guaifenesin 1,200 mg 09/25/23 08:00 09/25/23 08:20
Guaifenesin 600 Mg Extended Release Tablet PO 09/28/23 20:01 1,200 mg
Q12 ELODIA Administration
Heparin Sodium 5,000 units 09/24/23 16:00 09/25/23 08:20
Heparin 5,000 Units/Ml 1 Ml Vial SC 10/22/23 15:59 5,000 units
Q8 ELODIA Administration
Losartan Potassium 50 mg 09/24/23 22:00 09/24/23 23:22
Losartan 50 Mg Tablet PO 10/22/23 21:59 Not Given
HS ELODIA
Morphine Sulfate 2 mg 09/24/23 12:19
Morphine 2 Mg/Ml Syringe IV 10/08/23 12:18
Q2HPRN PRN
severe pain
Nicotine 21 mg 09/24/23 20:00 09/25/23 08:20
Nicotine 21 Mg Patch TRANSDERM 10/22/23 19:59 21 mg
DAILY ELODIA Administration
Oxycodone HCl 5 mg 09/24/23 12:19
Oxycodone 5 Mg Regular Release Tablet PO 10/08/23 12:18
Q4HPRN PRN
moderate pain
Pantoprazole Sodium 40 mg 09/25/23 08:00 09/25/23 08:20
Pantoprazole 40 Mg Delayed Release Tablet PO 10/23/23 07:59 40 mg
DAILY ELODIA Administration
Pravastatin Sodium 80 mg 09/24/23 22:00 09/24/23 23:22
Pravastatin 40 Mg Tablet PO 10/22/23 21:59 Not Given
HS ELODIA
Sodium Chloride 0 flush 09/24/23 08:00
Sodium Chloride 0.9% (Flush) Syringe IV 10/22/23 07:59
PER PROTOCOL ELODIA
Tiotropium [place] 2 puff 09/25/23 08:00 09/25/23 07:27
Tiotropium (Spiriva Respimat) 2.5 Mcg Inhaler INH 10/23/23 07:59 2 puff
R DAILY ELODIA Administration
Protocol
Home Medications
Medication Instructions Recorded
albuterol sulfate 90 mcg/actuation 2 puff inhalation R Q4 PRN 03/30/23
aerosol inhaler sob/wheezing
aspirin 325 mg tablet 325 mg PO HS Blood Clot 03/30/23
Prevention/Tx
losartan 50 mg tablet 50 mg PO HS Blood Pressure 03/30/23
pravastatin 80 mg tablet 80 mg PO HS High Cholesterol 03/30/23
cholecalciferol (vitamin D3) 25 1,000 mcg PO WEEKLY Supplement 09/14/23
mcg (1,000 unit) tablet (Vitamin
D3)
budesonide 160 mcg-glycopyr 9 2 inh inhalation BID 09/24/23
mcg-formot 4.8 mcg/actuation HFA Lung/Breathing Issues
inhaler (Breztri Aerosphere)
naproxen 500 mg tablet 500 mg PO BID PRN pain general 09/24/23
omeprazole 40 mg capsule,delayed 40 mg PO DAILY gerd 09/24/23
release
Past History
Past History
ED Past Medical History: Cancer (skin), COPD, HTN, Hypercholesterolemia, Psychiatric (Generalized anxiety disorder) and Other (Peripheral vascular disease, Obstructive sleep apnea, allergic rhinitis)
ED Past Surgical History: Cholecystectomy and Other (Right Iliac Arterial stent in the lower extremity, Left CEA , Ulnar nerve transposition, right iliac artery stent 2010)
Social History
Tobacco: Smoker
Alcohol: None
Drug: None
Personal:
Living: with family
Family History
Family History: Other (reviewed and non-contributory)
--- NOTE | 2023-09-25 10:20 | PTCARENOTE ---
notified [place] Director Of Religious Activities about left arm weakness. Director Of Religious Activities at bedside to assess called stroke alert. Dr Nolan at bedside and followed to ct scan. scan done an dpt returned to room. nihss done with Dr Nolan. left arm drift mild sensation loss on left arm
mild slurring of speech noted.
[2023-09-25] MEDS: MORPHINE SULFATE 2 MG IV (10:28)
[2023-09-25] MEDS: AMPICILLIN 10 MG IV (12:50)
[2023-09-25] MEDS: AMPICILLIN 10 ML IV (12:50)
[2023-09-25] MEDS: UNASYN IV (13:22)
--- NOTE | 2023-09-25 13:30 | PTOTSP ---
ST Dysphagia Evaluation
Known mod-severe pharyngeal dysphagia s/p outpatient [facility] 08/02/23
Pt received awake/alert at the bedside. Wet/congested cough at baseline which is intermittently productive per pt report. Full set dentures placed prior to PO trials. HOB raised upright for PO trials of puree, soft/bite-size solids and thin liquids.
Demo adequate oral access/containment, mild-moderately prolonged mastication and bolus was orally cleared. Double swallows. Thin liquids by straw sip small/single sips swallow appears delayed. Unable to fully implement L-head turn d/t endarectomy
incision on L-neck. Advised multiple swallows and use of protective throat clear/reswallow. No overt s/sx of aspiration vocal quality remained grossly clear; cannot r/o silent aspiration at the bedside.
Reviewed results/recommendations from [facility] 08/02/23; pt partially recalled strategies.
Recommend
1. Soft/bite-size solids (L6) and Thin liquids - small/single sips
2. Aspiration precautions and meal set up assist
3. Small bites, small/single sips, and slow rate
4. Multiple swallows and use of protective throat clear/reswallow
5. Crush meds into apple sauce
6. ROUSTABOUT CREW PUSHER following; reassess swallow at the bedside, determine if repeat objective testing indicated
[2023-09-25] MEDS: MUCOMYST 10% 4 ML INH ×2 (14:50→19:56)
[2023-09-25] MEDS: VENTOLIN NEBULES 2.5 MG INH ×2 (14:50→19:56)
[2023-09-25 16:27] LABS: HDL Cholesterol 57 mg/dl; LDL Cholesterol, Calculated 54 mg/dl; Total Cholesterol 125 mg/dl (50-199); Triglyceride 70 mg/dl (10-149); Very Low Density Lipoprotein 14 mg/dl (0-30)
--- NOTE | 2023-09-25 17:16 | CM ---
manager six sigma reviewed patient's chart and patient lives alone her spouse in June. Patient lives in a 2 story home, with 2 steps to enter, patient was independent with adl's and ambulation, no home oxygen and patient is currently
requiring 10 liters of oxygen. [facility].
PCP: Dr. Lugo
Plan; Home when stable, need to watch for home oxygen needs at discharge.
[2023-09-25] MEDS: ZOSYN 50 IV (18:48)
--- NOTE | 2023-09-25 20:29 | PTCARENOTE ---
Received pt in resting in bed. AAOx3 NIH = 3. L arm ataxia present w/ minor drift. Pt w/ min slurred speech. Difficulty following direction at times. Moist cough w/ thick secretions. Lungs coarse w/ rhonchi on 10L midflow. L neck CEA site
approximated w/ glue ecchymotic. RFA IV + infiltrated. Ice pack applied.
[2023-09-25] MEDS: TYLENOL 650 MG PO (21:01)
[2023-09-25] MEDS: ASPIRIN 325 MG PO (21:02)
[2023-09-25] MEDS: PRAVACHOL 80 MG PO (21:02)
[2023-09-25] MEDS: COZAAR 50 MG PO (21:03)
--- NOTE | 2023-09-25 22:19 | PTCARENOTE ---
Pt's pox mid to high 80s on 10L. Pt now 90-92% on 12L midflow. Pt sleeping.
[2023-09-26] VITALS (27 sets, daily range): BP systolic 125–174; BP diastolic 51–130; BMI 16.9
[2023-09-26] MEDS: ZOSYN 50 IV ×4 (00:13→18:24)
--- NOTE | 2023-09-26 00:45 | PTCARENOTE ---
Pt awoken easily for physical assessment,pt has to be encouraged to preform NIH stroke scale,pt stated she doesnt feel like it. No changes from previous exam.VS stable,ST cardiac technologist.Pt maintained on midflow O2 sats 95%.Pt in high semifowlers
position.Close observation ongoing throughout the night.
--- NOTE | 2023-09-26 04:24 | DOWNTIME ---
There was a [employer] Client Loom Cleaner Downtime on 09/26/2023 from 0100 to 09/26/2023 at 0322. Downtime documentation of patient's care, including medication administrations, has been reconciled in the electronic record per guidelines. Refer to the
patient's paper chart under the miscellaneous tab to see printed paper medication records and downtime forms.
[2023-09-26 04:51] LABS: Hematocrit 41.2 % (37.0-47.0); Hemoglobin 13.1 g/dL (12.0-16.0); Mean Corp Hgb Conc. 31.8 g/dL (33.0-37.0); Mean Corpuscular Hgb 29.4 pg (27.0-31.0); Mean Corpuscular Volume 92.4 fL (81.0-99.0); Mean Platelet Volume 11.4 fL (7.4-10.4); Platelet Count 178 10^3/uL (130-400); Red Blood Cell Count 4.46 10^6/uL (4.20-5.40); Red Cell Dist. Width 13.1 % (11.5-14.5); White Blood Cell Count 17.6 10^3/uL (4.8-10.8)
[2023-09-26 05:23] LABS: Procalcitonin < 0.05 ng/ml (0.0-0.25)
[2023-09-26 05:46] LABS: Blood Urea Nitrogen 19 mg/dl (7-17); Calcium 9.1 mg/dl (8.4-10.2); Carbon Dioxide 33 mmol/L (22-30); Chloride 96 mmol/L (98-107); Estimated Creatinine Clearance 52 ml/min; Glucose 87 mg/dl (70-99); Potassium 4.5 mmol/L (3.5-5.1); Sodium 135 mmol/L (135-145); eGFR > 60.00
[2023-09-26] MEDS: SPIRIVA RESPIMAT 2.5 MCG 2 PUFF INH (07:22)
[2023-09-26] MEDS: VENTOLIN NEBULES 2.5 MG INH ×3 (07:22→19:49)
[2023-09-26] MEDS: MUCOMYST 10% 4 ML INH ×3 (07:22→19:49)
[2023-09-26] MEDS: SYMBICORT 160/4.5 MCG INHALER 2 PUFF INH ×2 (07:22→19:49)
--- NOTE | 2023-09-26 08:20 | W.PN.INTV ---
Addendum entered and electronically signed by Osmel Bolton MD 09/26/23 18:06:
CDI Response:
Acute respiratory failure with hypoxemia due to CAP in setting of COPD
Original Note:
Today's Communication / Plan
Recommendations
Continue antibiotics
Continue aspiration precautions; CHIEF CUSTOMER OFFICER re-evaluated the pt and she is now NPO pending video swallow study tomorrow
Encourage incentive spirometer and up OOB as tolerated
Stroke alert called yesterday with no acute pathology seen on CTA head/neck or CT head without contrast � continue with neurochecks as per neurology, now q4hr; DAPT with ASA and plavix
Repeat CT head stat for any acute change in neurological status or NIHSS
Continue with Symbicort/Spiriva with nebulized albuterol TID and prn nebulized bronchodilators, and mucolytics with pulmonary toilet/flutter valve
I offered bronchoscopy but she has refused this procedure. Will discuss procedure again depending on how her hospital course continues
Assessment
-
Assessment: 77-year-old female active tobacco smoker with a past medical history of sleep apnea, PVD with claudication s/p right iliac artery stent, COPD, hyperlipidemia/hypertension who presents for elective left-sided carotid endarterectomy.
Patient known to [facility] via Dr. Sotomayor, with last office visit on 08/21/2023. At that office visit her imaging via CT angiogram was reviewed and she has severe bilateral carotid artery disease. 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
severe innominate arterial disease with diffusely small caliber right common carotid artery with retrograde flow, making surgical intervention high risk. She has a high-grade left carotid artery stenosis that is amenable to surgical intervention
and it was recommended to proceed with a left-sided carotid endarterectomy. Operative risks and benefits were discussed and patient agreed to this procedure. On 09/24/2023 she underwent left-sided carotid endarterectomy, with a EBL 12 cc and no
immediate complications. Patient was transferred to the ICU for postoperative care and document control supervisor services consulted for additional management/recommendations.
Chronic medical conditions TANNING SOLUTION MAKER: Hyperlipidemia, chronic airway obstruction NEC, vitamin D deficiency, sleep apnea, PVD with claudication, JACINTA, anxiety, basal cell carcinoma, hypertension, PAD s/p right iliac artery stent, COPD, allergic rhinitis
Impression:
#Bilateral carotid artery stenosis s/p left carotid endarterectomy � POD#2
#Left pronator drift - stroke alert called on AM of 09/24 - no evidence of CVA per brain imaging
#Leukocytosis
#Multifocal CAP (RUL/RML and LLL) with Hx of Pseudomonas auruginosa seen on sputum Cx from 2022
#Hyponatremia (resolved)
#Moderate COPD with paraseptal emphysema (post-BD FEV1: 53% predicted via spirometry from 04/2023)
#Mild restrictive lung disease (post-BD FVC: 62% predicted via spirometry from 04/2023)
#Active tobacco use disorder
Plan:
Postoperative surgical intensive care unit monitoring
Supplemental oxygen as needed to maintain SpO2 >88% and wean as tolerated --> she is currently on midflow; if she requires additional oxygen then would TRX to high-flow nasal cannula
Given her secretions I will roder vest therapy, and continue DuoNebs with mucomyst 10% TID
Frequent NT-suctioning prn; I discussed bronchoscopy with the patient today and that considering her high O2 requirements, safest method would be going through her nose, otherwise if we sedate her then she will likely need to be intubated. She
refused the procedure. I explained the benefit of a bronchoscopy and the risk of having her secretions in setting of her high oxygen requirements.
She will need walking pulse oximetry prior to discharge
On [facility] as an outpatient - continue Symbicort and Spiriva
Continue flutter valve in attempt to improve pulmonary toilet
Unable to give PO meds currently as she was seen again by CHIEF CUSTOMER OFFICER and pt is high aspiration risk, hence she is now strict NPO and pending video swallow study for tomorrow.
Continue incentive spirometry
Aspiration precautions
Continue ABx with Zosyn given her leukocytosis with RUL opacity and left basilar opacity seen on CXR - duration will be 6 days.
Maintain MAP>65
She will need repeat CT chest in 6-8 weeks to assure her multifocal consolidations resolve
Neurovascular checks per protocol
Reduce neurochecks to q4hr given her stroke-like symptoms on AM of 09/24
Continue DAPT but reduce ASA to 81mg
Vascular surgery following-correspondence and operative notes reviewed
DVT prophylaxis: LMWH 30mg q PM
Early nutrition
Goal BG 140-180mg/dL
Early mobilization
Eventually she will need to follow-up with us in the office again for COPD management and tobacco use disorder that qualifies her for annual LDCT chest for lung cancer screening purposes. She last saw us on 04/30/2023 with TIERA Zaragoza and
Dr. Veloz.
I personally reviewed the patient's pertinent medical records including radiographs, microbiology, laboratory evaluations, and discussion with primary team, consultants, pharmacy, nutrition, physical therapy, case management, charge nurse, critical
care nursing, and respiratory therapy.
Total time spent today was 76 minutes for this encounter. Time includes reviewing laboratory test/imaging results, reviewing pertinent medical records, obtaining and reviewing medical history, performing an appropriate exam, ordering medications,
tests and procedures. Time also includes documentation of this encounter, coordinating patient care and communicating with other healthcare professionals. Total time does not include separately billed tests performed on this date of service.
Data:
CTA Head/Neck - stroke alert - 09/25/2023:
Patent left internal carotid artery, following recent carotid endarterectomy with postsurgical changes seen within the accompanying/adjacent soft tissues.
Findings again seen suggesting marked stenosis, possible near occlusion of the right brachiocephalic artery, somewhat limited in evaluation at this time due to adjacent venous contrast.
Diffuse marked narrowing/caliber of the right common carotid and right internal carotid arteries again seen as well as some diffuse narrowing of the right middle cerebral artery as compared to the left middle cerebral artery, overall without
significant change.
NEW MARKED CONSOLIDATIONS of the portions of the right upper lobe and left lower lobe of the lung in the interval since recent prior study. Consider endobronchial obstruction such as secretions.
CTA head/neck with/without contrast 08-28-2023:
1. � No acute intracranial abnormality identified.
2. 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 Associated diffuse severely narrowed caliber of the right common carotid artery and the right internal carotid artery with threadlike opacification as above. Associated diffuse
narrowing of right middle cerebral territory vessels as compared with the left.
3. � Stenosis of the origin of the left internal carotid artery of approximately 72% secondary to calcific plaque.
4. � Diffuse narrow caliber of left posterior cerebral artery as compared with the right.
CT Head without contrast 09-25-2023: No acute intracranial abnormality.
CXR 09-24-2023: Right upper lobe pneumonia
CXR 09-25-2023:
Vague right upper lobe opacity which could represent pneumonia, slightly improved
New left basilar opacity which could represent subsegmental atelectasis and/or pneumonia. Cannot exclude small left pleural effusion.
CXR 09-26-2023:
Persistent vague opacity in the right upper to midlung with prominence of the right hilar shadow. Findings most likely represent pneumonia and/or atelectasis.
Confluent increased opacity of the left lower hemithorax, particularly medially with loss of definition of the left hemidiaphragm, stable appearance from recent examination of September 25, 2023.
Outpatient [facility] Data:
PFT:
������ [place] 04/30/23: FVC 1.59/62%, FEV1 1/52%, ratio 63%, no significant BD response. Moderate obstruction and suggestive of mild restrictive pattern.
�������PFT 03/24/2015: FVC 1.79/60%, FEV1 1.21/54%, ratio 68%, no significant BD response, TLC 3.6/76%, DLCO 10.38/49%, DLCO/VA 3.21/72%. Moderate obstruction. Mild restriction. Moderately reduced diffusing capacity, improved with alveolar adjustment.
6 MWT:
������ 6MWT 04/30/23: At rest, O2 98% on room air, heart rate 85. With ambulation, O2 remained between 98 to 100% on room air, max heart rate 106. 0/10 on dyspnea scale. Ambulated 750 feet.
RADIOGRAPHIC STUDIES:
������ CT chest PE study 03/30/2023: No PE. Mild paraseptal emphysema in both lung apices. Small groundglass opacities in the right upper lobe which are nonspecific but could reflect a mild pneumonitis or potentially a mild viral pneumonia. Bilateral
lower lobe peribronchial thickening with mild mucous plugging in the right lower lobe.
�������CXR 03/30/23: NAD
�������CXR 10/21/2022: No acute disease
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
CARDIAC STUDIES:
������ Echo 03/30/2023: Mild concentric LVH. EF 54%. Mild MR. Mild .
LABS:
������ 04/02/2023: Hemoglobin 14.1
�������04/01/2023: Sputum positive for Pseudomonas aeruginoas
�������03/30/2023: proBNP 0.
Subjective Dataa
Subjective Data
Date of Service:
Date of Service: September 26, 2023
Chief Complaint: Obiee Consultant Follow Up
Subjective:
Pt seen this AM. She is currently on 12L/min and saturating 97%. HR 96 and BP 147/67. She is producing thick, tenacious sputum. She is more alert today. No acute events reported overnight. She currently denies chest pain, headache, abdominal
pain, worsening shortness of breath, fevers or chills. She says that she does not wear oxygen at home.
Review of Systems
General: Other (Negative unless mentioned above)
Objective Data
Data Reviewed
Vital Signs / I&O / Oxygen:
Vital Signs
Temp Pulse Resp BP Pulse Ox
97.5 F 110 18 174/91 93
09/26/23 07:26 09/26/23 08:24 09/26/23 07:46 09/26/23 08:24 09/26/23 08:00
Intake and Output
09/25/23 09/26/23 09/27/23
06:59 06:59 06:59
Intake Total 1395.5 / 1575.5 440 / 440
Output Total 1475 / 1475 100 / 100
Balance -79.5 / 100.5 340 / 340
SaO2 93
Nasal Cannula flow liters per 12
minute
Physical Exam
General: Comfortable
HEENT: Normocephalic and Anicteric
Cardiovascular: S1-S2 and Peripheral Edema (negative)
Respiratory: Wheeze (negative), Crackles (Left posterior midlung region), Rhonchi (bilaterally), Non-Labored Respirations and Accessory Resp Muscle Use (negative)
GI: Soft, Non Distended and Non Tender
Neurology: Awake and Alert
Skin: Warm and Dry
Labs/Micro/Reports
Lab Data
09/26/23 04:33
09/26/23 04:33
Microbiology
09/25/23 18:52 Urine Legionella Urinary Antigen - Final
Negative for Legionella pneumophila Serogroup 1 antigen.
A negative result does not rule out the possiblity of
Legionella infection due to other serogroups or species of
Legionella. Clinical correlation is recommended.
09/25/23 18:52 Urine Streptococcus pneumoniae Antigen (M - Final
Negative for Streptococcus pneumoniae antigen.
A negative result does not exclude infection with
Streptococcus pneumoniae. Clinical correlation is
recommended.
09/25/23 09:15 Sputum Respiratory Culture - Final
09/25/23 09:15 Sputum Gram Stain - Final
[2023-09-26] MEDS: NICODERM TRANSDERMAL 21 MG TRANSDERM (08:24)
[2023-09-26] MEDS: NORVASC 5 MG PO (08:24)
[2023-09-26] MEDS: PLAVIX 75 MG PO (08:25)
[2023-09-26] MEDS: HEPARIN 5000 UNITS SC (08:25)
[2023-09-26] MEDS: PROTONIX 40 MG PO (08:25)
--- NOTE | 2023-09-26 09:09 | W.PN.VS ---
Today's Communication / Plan
-
Patient seen and examined at bedside with Dr. Uriel Sotomayor III, below plan reviewed with attending
Assessment/Plan
-
POD 2 LEFT carotid endarterectomy with patch angioplasty using bovine pericardium, suspected right MCA ischemic stroke on 09/25/2023
Plan:
-Neurology following, appreciate recommendations may consider MRI when medically stable
-Patient noted to have blood pressure increase with a few readings over 160 systolic at times, will add second PO agent for improved blood pressure control given recent carotid endarterectomy
-Continue DAPT per stroke protocol
-Out of bed to chair, ambulation as tolerated
-PT/OT/ST
-Wean O2
-Continue encourage incentive spirometry
-Continue chest PT
-Appreciate camp boss/pulmonology recommendations
Subjective Data
-
Date of Service: September 26, 2023
Patient seen and examined at bedside, reports little improvement in left upper weakness. Continues to report shortness of breath, currently on supplemental oxygen. Tolerating p.o. diet, denies difficulty swallowing. Denies vision changes,
aphasia, or dysphagia.
Objective Data
-
Vital Signs
Temp Pulse Resp BP Pulse Ox
97.5 F 110 18 174/91 97
09/26/23 07:26 09/26/23 08:24 09/26/23 07:46 09/26/23 08:24 09/26/23 07:30
Intake and Output
09/25/23 09/26/23 09/27/23
06:59 06:59 06:59
Intake Total 1395.5 / 1575.5 440 / 440
Output Total 1475 / 1475 100 / 100
Balance -79.5 / 100.5 340 / 340
Intake:
Oral fluids 100 / 100
IV fluids (Total) 1395.5 / 1475.5 240 / 240
Cardene 175.5 / 175.5
Nss 1,000 ml @ 80 mls/hr IV . 160 / 160
[id number] ELODIA Rx#:[id number]
normal saline 1220 / 1300 80 / 80
IV piggybacks 100 / 100
Output:
Urine, Voided 1475 / 1475 100 / 100
Other:
Number of approximated MODERATE 3 2
amounts of urine
Lab Results
09/26/23 04:33
09/26/23 04:33
Calcium 9.1 mg/dl (8.4-10.2) 09/26/23 04:33
Physical Exam
-
AAOx3
No tachypnea on mid flow via nasal cannula
Mildly tachycardic in the 110s
Neck site flat, soft, clean dry and intact
Left upper extremity remains with scant drift compared to right, no facial droop, bilateral lower extremities with equal strength
Tongue midline
[2023-09-26] MEDS: MUCINEX PO (09:15)
--- NOTE | 2023-09-26 09:41 | PTCARENOTE ---
pt aaox3. states pain in back repositioned in bed. left neck site c/d/i. pt on 12l mid flow. breath sounds course rhonchi. pt has thick moist cough producing thick white. o2 sat drops when moving in bed. attempted to nt suction pt
uncooperative. pt taking pills crushed in apple sauce.
[2023-09-26] MEDS: ROBITUSSIN 600 MG PO ×2 (10:44→13:21)
[2023-09-26] MEDS: MORPHINE SULFATE 2 MG IV ×2 (10:48→21:42)
--- NOTE | 2023-09-26 11:15 | W.PN.NEURO.1 ---
Today's Communication / Plan
-
Continue clopidogrel 75 mg daily for a total of 21 days, then may discontinue
Continue aspirin
Continue pravastatin 80 mg
Smoking cessation counseling
Speech therapy and physical therapy as well as Occupational Therapy evaluations
Check MRI of brain when patient is stable
Smoking cessation
Stroke educational materials to be provided
Goal of normotension
Neuro Assessment/Plan
Assessment
IMPRESSIONS/RECOMMENDATIONS:
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
Most likely due to right MCA acute ischemic stroke
Patient was not a candidate for either tenecteplase or clot retrieval due to absence of clot for retrieval, as well as recent significant surgical intervention
Plan
Continue clopidogrel 75 mg daily for a total of 21 days, then may discontinue
Continue aspirin
Continue pravastatin 80 mg
Smoking cessation counseling
Speech therapy and physical therapy as well as Occupational Therapy evaluations
Check MRI of brain when patient is stable
Smoking cessation
Stroke educational materials to be provided
Goal of normotension
Will continue to follow as needed.
Subjective/Objective
Subjective Data
Date of Service: September 26, 2023
Patient reports no knowledge of deficits currently
Objective Data
Vital Signs
Temp Pulse Resp BP Pulse Ox
36.8 C 110 21 141/63 90
09/26/23 11:03 09/26/23 09:30 09/26/23 09:30 09/26/23 09:00 09/26/23 09:40
Lab Results
09/26/23 04:33
09/26/23 04:33
PT 13.5 Sec (11.4-14.6) 09/25/23 03:18
INR 1.05 09/25/23 03:18
APTT 37.5 Sec (23.4-35.0) H 09/25/23 03:18
Sodium 135 mmol/L (135-145) 09/26/23 04:33
Potassium 4.5 mmol/L (3.5-5.1) 09/26/23 04:33
BUN 19 mg/dl (7-17) H 09/26/23 04:33
Glucose 87 mg/dl (70-99) 09/26/23 04:33
Calcium 9.1 mg/dl (8.4-10.2) 09/26/23 04:33
LDL Cholesterol, Calc 54 mg/dl 09/25/23 03:18
Patient Allergies
amoxicillin Allergy (Verified 09/25/23 21:03)
Rash; tolerated ampicillin, piperacillin 09/25/23
atorvastatin [From Lipitor] Allergy (Verified 09/24/23 07:47)
muscle cramps
Cephalosporins Allergy (Verified 09/24/23 07:49)
Rash
clarithromycin Allergy (Verified 09/24/23 07:48)
Rash
levofloxacin [From Levaquin] Allergy (Verified 09/24/23 07:48)
Unknown
niacin Allergy (Verified 09/24/23 07:50)
Unknown
pneumococcal vaccine Allergy (Verified 09/24/23 07:49)
Swelling
Sulfa (Sulfonamide Antibiotics) Allergy (Verified 09/24/23 07:47)
Rash
sulfisoxazole Allergy (Verified 09/24/23 07:47)
Rash
potasium clavunate Allergy (Uncoded 09/24/23 07:50)
Unknown
Review of Systems
-
History Source: Patient
All other systems: Reviewed and negative
Neuro: Negative Dizzy or Headache
Physical Exam
-
General: No Apparent Distress, Appears Chronically Ill, Appears Stated Age and Wearing Oxygen
Eyes: Round OU, Tullos Conjunctivae and No Ptosis
HEENT: Anicteric and Moist Mucous Membranes
Neck: Full Range of Motion
Respiratory: No Dyspnea
Cardiac: No JVD
GI: Non-distended
Skin: Unremarkable
Extremities: No Clubbing, No Cyanosis and No Edema
Psych: Negative Intact Judgement/Insight
Extended Neurological Exam
Mood & Affect: Anxious
Attention Span & Concentration: Awake, Alert and Interactive
Tremor: Hand Tremor Absent and Head Tremor Absent
Involuntary Movement: None
Speech: Quantity Unremarkable and Dysarthric
Cranial Nerve II: Left Eye: Pupillary Size Unremarkable and Visual Barkley Grossly Intact
Cranial Nerve II: Right Eye: Pupillary Size Unremarkable and Visual Barkley Grossly Intact
Cranial Nerves III, IV, : Extraocular Movement: Grossly Intact
Cranial Nerve VII: Facial Symmetry: Normal Facial Symmetry
Cranial Nerve VIII: Hearing: Unremarkable Hearing to Normal Conversational Volume
Cranial Nerve XI: Shoulder Shrug: Unremarkable
Muscle Bulk & Tone: Bulk Unremarkable and Tone Unremarkable
Deep Tendon Reflexes: Unremarkable Throughout
Touch Sensation: Unremarkable
Coordination: [id number] Testing Unremarkable
Babinski Sign: Absent Bilaterally
Gait & Station: Unable to Assess
Data Reviewed
-
Labs: Report Reviewed
Reviewed with: Physician, Nurse Practioner and Patient
Old Records: Summarized
--- NOTE | 2023-09-26 11:48 | PN.CDI ---
CDI
- -
CDI:
Physician Documentation Request
Admit Date: 09/24/23 07:04
Dear Ms. Healy,
Please review the following and provide your response in the progress notes.
Clinical Indicators:
[place], 09/24
#CBW: 90 lb 2.705 oz BMI 16.5 underweight range 09/24; 95 lb 12.8 oz 03/31;
#...106 lb 14.787 oz 10/21.
#Non-significant weight loss of 5.3% x 6 months, 15.9% x 11 months,
#...although pt denied weight loss per current clinical data.
Please provide an associated diagnosis related to the abnormal BMI, such as:
BMI, 16.5, underweight
BMI is not significant
Other
BMI < or = to 19
Underweight
Weight Loss
Cachectic
Anorexia
Use of terms such as suspected, likely, concern for, or probable (associated with a specific diagnosis that is being evaluated, monitored, or treated as if it exists) are acceptable and can be coded in the inpatient setting, when documented at the
time of discharge.
Thank you,
Jessica Walker RN BSN CCDS
CDI Specialist
please contact via tiger text
Please use your independent medical judgment in providing your response.
--- NOTE | 2023-09-26 11:52 | PN.CDI ---
CDI
- -
CDI:
Physician Documentation Request
Admit Date: 09/24/23 07:04
Dear Ms. Healy,
Please review the following and provide your response in the progress notes.
Clinical Indicators:
Electric Vehicle Electrician consult, 09/23
#Moderate COPD with paraseptal emphysema
#...(post-BD FEV1: 53% predicted via spirometry from 04/2023)
Electric Vehicle Electrician, PN, 09/24
#Leukocytosis - worsening
#Multifocal CAP (RUL/RML and LLL) with Hx of Pseudomonas auruginosa seen on sputum Cx
#Current BP 127/58, heart rate 102 and
#...saturating 98% on 10 L/min midflow nasal cannula.
PN, 09/24
#POD 1 LEFT carotid endarterectomy with patch angioplasty using bovine pericardium
#...-Will crow back to reassess respiratory status
#No tachypnea on 10 L nasal cannula
#Mildly tachycardic in the 110s
PN, 09/25
#POD 2 LEFT carotid endarterectomy
#...with patch angioplasty using bovine pericardium,
#...suspected right MCA ischemic stroke on 09/25/2023
#No tachypnea on mid flow via nasal cannula
#Mildly tachycardic in the 110s
Laboratory Tests
09/24/23
19:58
pH 7.30 L
pCO2 62 H
pO2 65 L
HCO3 30.5 H
Base Excess 2.3
ABG O2 Sat (Measured) 92.5 L
Please clarify which of the following accurately represents the patient's respiratory status:
Acute respiratory failure
Acute post op pulmonary insufficiency
COPD exacerbation
COPD with acute lower respiratory infection
Hypoxia
Other
Additional information for Respiratory Failure:
Recognized criteria for Respiratory Failure (Source: [facility] Hospitalist May 2013)
ABGs: (1 or more) Symptoms Please indicate type if known
1. p)2 <60 or RA SPO2 <91% on RA 1. Tachypnea, SOB, dyspnea Hypoxic
2. pCO2 50 and pH <7.35 2. Use of accessory muscles Hypercapnic
3. pO2 decrease of pCO2 increase by 3. Pallor or cyanosis Hypoxic and Hypercapnic
10 mmHg from baseline if known 4. Anxiety or restlessness Unable to determine
5. Unable to speak in full sentences
Supplemental O2 of > 40% (5LPM) Intubation is not required
Use of terms such as suspected, likely, concern for, or probable (associated with a specific diagnosis that is being evaluated, monitored, or treated as if it exists) are acceptable and can be coded in the inpatient setting, when documented at the
time of discharge.
Thank you,
Jessica Walker RN BSN CCDS
CDI Specialist
please contact via tiger text
Please use your independent medical judgment in providing your response.
--- NOTE | 2023-09-26 12:00 | W.PN.UPDATE ---
Update Note
Progress Note Update
In response to CDI:
Clinical Indicators:
Candles Pourer, 09/24
#CBW: 90 lb 2.705 oz BMI 16.5 underweight range 09/24; 95 lb 12.8 oz 03/31;
#...106 lb 14.787 oz 10/21.
#Non-significant weight loss of 5.3% x 6 months, 15.9% x 11 months,
#...although pt denied weight loss per current clinical data.
Please provide an associated diagnosis related to the abnormal BMI, such as:
BMI, 16.5, underweight patient presented to hospital at this weight.
BMI < or = to 19
Underweight
Weight Loss
Cachectic
Anorexia
--- NOTE | 2023-09-26 12:55 | CM ---
CM following re: discharge planning.
Discussed in Rounds, reviewed pt;'s chart, met with pt. Per Rounds meeting, pt is POD 2 LEFT carotid endarterectomy with patch angioplasty using bovine pericardium, suspected right MCA ischemic stroke on 09/25/2023.
PT and OT evaluations noted: acute vs [place] PT recommended. Per PT, pt require minimal assist to ambulate to the bathroom, oxygen desaturation to 87% on 10L midflow NC. Final recommendation will depend on the patient's progress while here, still
with high oxygen requirements.
D/C plan: uncertain at this time and will depend on pt's progress.
CM will follow with discharge plan updates as hospitalization progresses
--- NOTE | 2023-09-26 13:37 | PN.CDI ---
CDI
- -
CDI:
Physician Documentation Request
Admit Date: 09/24/23 07:04
Dear Doctor Hoang,
Please review the following and provide your response in the progress notes.
Clinical Indicators:
Recovery Collector consult, 09/23
#Moderate COPD with paraseptal emphysema
#...(post-BD FEV1: 53% predicted via spirometry from 04/2023)
Recovery Collector, PN, 09/24
#Bilateral carotid artery stenosis s/p left carotid endarterectomy � POD#1
#Leukocytosis - worsening
#Multifocal CAP (RUL/RML and LLL) with Hx of Pseudomonas auruginosa seen on sputum Cx
#Current BP 127/58, heart rate 102 and
#...saturating 98% on 10 L/min midflow nasal cannula.
Laboratory Tests
09/24/23
19:58
pH 7.30 L
pCO2 62 H
pO2 65 L
HCO3 30.5 H
Base Excess 2.3
ABG O2 Sat (Measured) 92.5 L
Please clarify which of the following accurately represents the patient's respiratory status following surgery:
Acute respiratory failure
Acute on chronic respiratory failure
Chronic respiratory failure
Acute pulmonary insufficiency (following surgery)
Chronic pulmonary insufficiency (following surgery)
Hypoxia
Other
Additional information for Pulmonary Insufficiency:
Consider when patients require watermaster oxygen therapy postoperatively
Weaned off oxygen initially then requiring supplemental oxygen
No other definitive diagnosis to support the need for oxygen (COPD exac, CHF etc.)
Unable to wean from vent
When criteria for respiratory failure not present
May extend stay or require additional resources; may need home O2
Additional information for Respiratory Failure:
Recognized criteria for Respiratory Failure (Source: [facility] Hospitalist May 2013)
ABGs: (1 or more) Symptoms Please indicate type if known
1. p)2 <60 or RA SPO2 <91% on RA 1. Tachypnea, SOB, dyspnea Hypoxic
2. pCO2 50 and pH <7.35 2. Use of accessory muscles Hypercapnic
3. pO2 decrease of pCO2 increase by 3. Pallor or cyanosis Hypoxic and Hypercapnic
10 mmHg from baseline if known 4. Anxiety or restlessness Unable to determine
5. Unable to speak in full sentences
Supplemental O2 of > 40% (5LPM) Intubation is not required
Use of terms such as suspected, likely, concern for, or probable (associated with a specific diagnosis that is being evaluated, monitored, or treated as if it exists) are acceptable and can be coded in the inpatient setting, when documented at the
time of discharge.
Thank you,
Jessica Walker RN BSN CCDS
CDI Specialist
please contact via tiger text
Please use your independent medical judgment in providing your response.
--- NOTE | 2023-09-26 15:44 | PTOTSP ---
Dysphagia Therapy
Patient presents with signs of significant pharyngeal dysphagia with concern for aspiration as evidenced by wet vocal quality, strong coughing/expulsion of bolus and oxygen desaturation to 86% with sip of thin liquid via cup, c/o pharyngeal stasis
with puree, and reports by patient and nursing of regurgitation with soft solids.
Patient with a known chronic dysphagia (moderate-severe pharyngeal dysphagia on video swallow study 08/02/2023; episodes of silent aspiration at that time) and is at an elevated risk for worsened dysphagia s/p L CEA. Cannot rule out silent aspiration
at the bedside. Recommend NPO until further objective assessment of swallowing function given patient's presentation this date. Patient verbalized agreement to this plan. Discussed with RN, KAITARA TARAKA, and flower arranger.
Recommend:
1. NPO - pending video swallow study results
2. Medications via non-oral means if able; otherwise essential medications crushed in puree
3. Oral care 3x daily with suctioning
4. Video swallow study to objectively assess pharyngeal swallow
[2023-09-26] MEDS: D5/0.9% SODIUM CHLORIDE 1000 IV (17:32)
[2023-09-26] MEDS: LOVENOX 30 MG SC (18:24)
[2023-09-26] MEDS: SOLU-MEDROL PF 40 MG IV (18:39)
--- NOTE | 2023-09-26 19:30 | PTCARENOTE ---
Resumed care of pt this evening, NIHSS 2. Pt's surgical site well approximated, C/D/I.
[2023-09-26] MEDS: ASPIRIN 300 MG RECTAL (21:31)
[2023-09-27] VITALS (25 sets, daily range): BP systolic 114–172; BP diastolic 51–117; PULSE 2–110; O2SAT 96; BMI 16.7
[2023-09-27] MEDS: SOLU-MEDROL PF 40 MG IV ×4 (00:51→19:53)
[2023-09-27] MEDS: VASOTEC 1.25 MG IV ×3 (00:52→12:13)
[2023-09-27] MEDS: ZOSYN 50 IV ×4 (00:53→17:40)
[2023-09-27 05:18] LABS: Hematocrit 38.5 % (37.0-47.0); Mean Corp Hgb Conc. 33.8 g/dL (33.0-37.0); Mean Corpuscular Hgb 30.2 pg (27.0-31.0); Mean Corpuscular Volume 89.3 fL (81.0-99.0); Mean Platelet Volume 10.9 fL (7.4-10.4); Platelet Count 167 10^3/uL (130-400); Red Blood Cell Count 4.31 10^6/uL (4.20-5.40); Red Cell Dist. Width 12.8 % (11.5-14.5); White Blood Cell Count 14.2 10^3/uL (4.8-10.8)
[2023-09-27 05:40] LABS: Blood Urea Nitrogen 29 mg/dl (7-17); Calcium 9.1 mg/dl (8.4-10.2); Carbon Dioxide 35 mmol/L (22-30); Chloride 96 mmol/L (98-107); Estimated Creatinine Clearance 53 ml/min; Glucose 153 mg/dl (70-99); Potassium 4.3 mmol/L (3.5-5.1); Sodium 136 mmol/L (135-145); eGFR > 60.00
[2023-09-27] MEDS: SPIRIVA RESPIMAT 2.5 MCG 2 PUFF INH (07:25)
[2023-09-27] MEDS: MUCOMYST 10% 4 ML INH ×3 (07:25→20:52)
[2023-09-27] MEDS: VENTOLIN NEBULES 2.5 MG INH ×3 (07:26→20:52)
[2023-09-27] MEDS: SYMBICORT 160/4.5 MCG INHALER 2 PUFF INH ×2 (07:26→20:52)
[2023-09-27] MEDS: NICODERM TRANSDERMAL 21 MG TRANSDERM (07:56)
[2023-09-27] MEDS: PROTONIX IV 40 MG IV (07:56)
--- NOTE | 2023-09-27 08:31 | W.PN.INTV ---
Addendum entered and electronically signed by Osmel Bolton MD 09/27/23 18:46:
In addition, I started Solu-Medrol on 09/25 and this should be continued and weaned as tolerated. Can likely reduce down to 40 mg IV q12hr tomorrow (09/27). I also will add antitussives with promethazine with codeine for cough.
Original Note:
Today's Communication / Plan
Recommendations
Continue antibiotics; start zithromax
Continue aspiration precautions with pureed diet; meds crushed
Start buspar given anxiety with mild tachycardia
Encourage incentive spirometer and up OOB as tolerated
PT has recommended acute rehab vs SNF
Stroke alert called on 09/24 with no acute pathology seen on CTA head/neck or CT head without contrast � continue with neurochecks as per neurology, now q4hr; DAPT with ASA and plavix
Repeat CT head stat for any acute change in neurological status or NIHSS
Continue with Symbicort/Spiriva with nebulized albuterol TID and prn nebulized bronchodilators, and mucolytics with pulmonary toilet/flutter valve
I offered bronchoscopy but she has refused this procedure.
GOC discussion held and she is now DNR/DNI
Patient is stable for transfer out of ICU to telemetry. She is DNR/DNI. She does want to continue full medical treatment. Check walking pulse oximetry tomorrow. Pulmonary service will continue to follow along while she remains inpatient.
Assessment
-
Assessment: 77-year-old female active tobacco smoker with a past medical history of sleep apnea, PVD with claudication s/p right iliac artery stent, COPD, hyperlipidemia/hypertension who presents for elective left-sided carotid endarterectomy.
Patient known to [facility] via Dr. Sotomayor, with last office visit on 08/21/2023. At that office visit her imaging via CT angiogram was reviewed and she has severe bilateral carotid artery disease. 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
severe innominate arterial disease with diffusely small caliber right common carotid artery with retrograde flow, making surgical intervention high risk. She has a high-grade left carotid artery stenosis that is amenable to surgical intervention
and it was recommended to proceed with a left-sided carotid endarterectomy. Operative risks and benefits were discussed and patient agreed to this procedure. On 09/24/2023 she underwent left-sided carotid endarterectomy, with a EBL 12 cc and no
immediate complications. Patient was transferred to the ICU for postoperative care and [facility] consulted for additional management/recommendations.
Chronic medical conditions PEANUT SORTER: Hyperlipidemia, chronic airway obstruction NEC, vitamin D deficiency, sleep apnea, PVD with claudication, JACINTA, anxiety, basal cell carcinoma, hypertension, PAD s/p right iliac artery stent, COPD, allergic rhinitis
Impression:
#Bilateral carotid artery stenosis s/p left carotid endarterectomy � POD#3
#Left pronator drift - stroke alert called on AM of 09/24 - no evidence of CVA per brain imaging
#Leukocytosis
#Multifocal CAP (RUL/RML and LLL) with Hx of Pseudomonas auruginosa seen on sputum Cx from 2022
#Acute respiratory failure with hypoxemia due to CAP in the setting of COPD exacerbation
#Hyponatremia (resolved)
#Moderate COPD with paraseptal emphysema (post-BD FEV1: 53% predicted via spirometry from 04/2023)
#Mild restrictive lung disease (post-BD FVC: 62% predicted via spirometry from 04/2023)
#Active tobacco use disorder
Plan:
Postoperative surgical intensive care unit monitoring
Supplemental oxygen as needed to maintain SpO2 >88% and wean as tolerated --> she is currently on midflow; if she requires additional oxygen then would TRX to high-flow nasal cannula
Given her secretions I ordered vest therapy, and continue DuoNebs with mucomyst 10% TID --> she does not seem to be expectorating better or improving despite the mucomyst, hence I willl stop this after tonight.
Frequent NT-suctioning prn; I discussed bronchoscopy with the patient on 09/25 and that considering her high O2 requirements, safest method would be going through her nose, otherwise if we sedate her then she will likely need to be intubated. She
refused the procedure. She also does not want to be intubated (see below) - I explained the benefit of a bronchoscopy and the risk of having her secretions in setting of her high oxygen requirements.
She will need walking pulse oximetry prior to discharge
On Breztri as an outpatient - continue Symbicort and Spiriva and resume Breztri once discharged
Continue flutter valve in attempt to improve pulmonary toilet
Ok to resume PO meds as long as crushed into pureed as per MUSIC PUBLISHER; she continues to be high aspiration risk, she is aware of this risk and wishes to continue with pur�ed diet
Continue incentive spirometry
Aspiration precautions
Continue ABx with Zosyn given her leukocytosis with RUL opacity and left basilar opacity seen on CXR - duration will be 6 days. Her WBC is improving, hence can likely narrow ABx down to Unasyn tomorrow (09/27). Given her COPD with acute flare, I
will start her on Azithromycin as well x 5 days
Maintain MAP>65
She will need repeat CT chest in 6-8 weeks to assure her multifocal consolidations resolve
Of note, as per discussion with the bedside RN and pt's sister, pt has been having difficulty swallowing for few months.
Neurovascular checks per protocol
Continue neurochecks q4hr given her stroke-like symptoms on AM of 09/24
Continue DAPT
Considering she appears anxious, I will start Buspar 10mg BID. Would avoid narcotics paxton given her high O2 requirements.
Vascular surgery following-correspondence and operative notes reviewed
DVT prophylaxis: LMWH 30mg q PM
Early nutrition
Goal BG 140-180mg/dL
Early mobilization
I had extensive goals of care discussion with her today (see separate update note). Patient is now DNR/DNI and with full medical treatment. Hospice was discussed but she is not interested as she had a bad experience with them from June 2023.
I did ask her to reconsider speaking with them as given her high oxygen requirements it may be hard for her to be discharged home. She keeps repeating that she 'just wants to go home and be with my cats and smoke a cigarette.' She also has been
refusing care at times.
Eventually she will need to follow-up with us in the office again for COPD management and tobacco use disorder that qualifies her for annual LDCT chest for lung cancer screening purposes. She last saw us on 04/30/2023 with TIERA Zaragoza and
Dr. Veloz. I will arrange for outpatient office visit with us, however she does say that she is moving to [place] so it is unlikely that she will actually follow-up with us. I encouraged her to locate a ore dressing engineer near her residence if she ends
up moving to [place].
I personally reviewed the patient's pertinent medical records including radiographs, microbiology, laboratory evaluations, and discussion with primary team, consultants, pharmacy, nutrition, physical therapy, case management, charge nurse, critical
care nursing, and respiratory therapy.
Dispo: Patient is stable for transfer out of ICU to telemetry. She is DNR/DNI. She does want to continue full medical treatment. Check walking pulse oximetry tomorrow. Pulmonary service will continue to follow along while she remains inpatient.
Total time spent today was 35 minutes for this encounter. Time includes reviewing laboratory test/imaging results, reviewing pertinent medical records, obtaining and reviewing medical history, performing an appropriate exam, ordering medications,
tests and procedures. Time also includes documentation of this encounter, coordinating patient care and communicating with other healthcare professionals. Total time does not include separately billed tests performed on this date of service.
Data:
CTA Head/Neck - stroke alert - 09/25/2023:
Patent left internal carotid artery, following recent carotid endarterectomy with postsurgical changes seen within the accompanying/adjacent soft tissues.
Findings again seen suggesting marked stenosis, possible near occlusion of the right brachiocephalic artery, somewhat limited in evaluation at this time due to adjacent venous contrast.
Diffuse marked narrowing/caliber of the right common carotid and right internal carotid arteries again seen as well as some diffuse narrowing of the right middle cerebral artery as compared to the left middle cerebral artery, overall without
significant change.
NEW MARKED CONSOLIDATIONS of the portions of the right upper lobe and left lower lobe of the lung in the interval since recent prior study. Consider endobronchial obstruction such as secretions.
CTA head/neck with/without contrast 08-28-2023:
1. � No acute intracranial abnormality identified.
2. 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 Associated diffuse severely narrowed caliber of the right common carotid artery and the right internal carotid artery with threadlike opacification as above. Associated diffuse
narrowing of right middle cerebral territory vessels as compared with the left.
3. � Stenosis of the origin of the left internal carotid artery of approximately 72% secondary to calcific plaque.
4. � Diffuse narrow caliber of left posterior cerebral artery as compared with the right.
CT Head without contrast 09-25-2023: No acute intracranial abnormality.
CXR 09-24-2023: Right upper lobe pneumonia
CXR 09-25-2023:
Vague right upper lobe opacity which could represent pneumonia, slightly improved
New left basilar opacity which could represent subsegmental atelectasis and/or pneumonia. Cannot exclude small left pleural effusion.
CXR 09-26-2023:
Persistent vague opacity in the right upper to midlung with prominence of the right hilar shadow. Findings most likely represent pneumonia and/or atelectasis.
Confluent increased opacity of the left lower hemithorax, particularly medially with loss of definition of the left hemidiaphragm, stable appearance from recent examination of September 25, 2023.
Outpatient [facility] Data:
PFT:
������ [place] [facility] 04/30/23: FVC 1.59/62%, FEV1 1/52%, ratio 63%, no significant BD response. Moderate obstruction and suggestive of mild restrictive pattern.
�������PFT 03/24/2015: FVC 1.79/60%, FEV1 1.21/54%, ratio 68%, no significant BD response, TLC 3.6/76%, DLCO 10.38/49%, DLCO/VA 3.21/72%. Moderate obstruction. Mild restriction. Moderately reduced diffusing capacity, improved with alveolar adjustment.
6 MWT:
������ 6MWT 04/30/23: At rest, O2 98% on room air, heart rate 85. With ambulation, O2 remained between 98 to 100% on room air, max heart rate 106. 0/10 on dyspnea scale. Ambulated 750 feet.
RADIOGRAPHIC STUDIES:
������ CT chest PE study 03/30/2023: No PE. Mild paraseptal emphysema in both lung apices. Small groundglass opacities in the right upper lobe which are nonspecific but could reflect a mild pneumonitis or potentially a mild viral pneumonia. Bilateral
lower lobe peribronchial thickening with mild mucous plugging in the right lower lobe.
�������CXR 03/30/23: NAD
�������CXR 10/21/2022: No acute disease
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
CARDIAC STUDIES:
������ Echo 03/30/2023: Mild concentric LVH. EF 54%. Mild MR. Mild .
LABS:
������ 04/02/2023: Hemoglobin 14.1
�������04/01/2023: Sputum positive for Pseudomonas aeruginoas
�������03/30/2023: proBNP 2039.
Subjective Dataa
Subjective Data
Date of Service:
Date of Service: September 27, 2023
Chief Complaint: Blocking Machine Operator Follow Up
Subjective:
Pt seen this AM. Pt is on 9L/min. Was briefly on precedex overnight for agitation. This morning she is alert and oriented. Underwent video swallow today and she continues to be an aspiration risk with at least moderate oral and moderate�severe
pharyngeal dysphagia. Strategies for aspiration prevention were discussed, patient is aware of her risks for aspiration and wants to continue with pur�ed diet. Goals of care discussion held between myself and her and she has capacity to make her
own decisions - she is now DNR/DNI (see separate update note). She would like to get up and walk around and she feels like that would help her oxygen levels the best. She is eager to go home and eventually go to [place] to live with her sister,
and she says her niece will drive her there.
Review of Systems
General: Other (Negative unless mentioned above)
Objective Data
Data Reviewed
Vital Signs / I&O / Oxygen:
Vital Signs
Temp Pulse Resp BP Pulse Ox
98.4 F 108 22 137/52 96
09/27/23 07:49 09/27/23 07:30 09/27/23 07:30 09/27/23 06:00 09/27/23 07:30
Intake and Output
09/26/23 09/27/23 09/28/23
06:59 06:59 06:59
Intake Total 440 / 440 650 / 650
Output Total 100 / 100
Balance 340 / 340 650 / 650
SaO2 96
Nasal Cannula flow liters per 10
minute
Physical Exam
General: Comfortable
HEENT: Normocephalic and Anicteric
Cardiovascular: S1-S2 and Peripheral Edema (negative)
Respiratory: Wheeze (negative), Crackles (Left posterior midlung region), Rhonchi (bilaterally), Non-Labored Respirations and Accessory Resp Muscle Use (negative)
GI: Soft, Non Distended and Non Tender
Neurology: Awake and Alert
Skin: Warm and Dry
Labs/Micro/Reports
Lab Data
09/27/23 05:01
09/27/23 05:01
Microbiology
09/25/23 14:14 Blood/Venous Blood Culture - Preliminary
No Growth in 24 hours- Final report to follow
09/25/23 18:52 Urine Legionella Urinary Antigen - Final
Negative for Legionella pneumophila Serogroup 1 antigen.
A negative result does not rule out the possiblity of
Legionella infection due to other serogroups or species of
Legionella. Clinical correlation is recommended.
09/25/23 18:52 Urine Streptococcus pneumoniae Antigen (M - Final
Negative for Streptococcus pneumoniae antigen.
A negative result does not exclude infection with
Streptococcus pneumoniae. Clinical correlation is
recommended.
09/25/23 09:15 Sputum Respiratory Culture - Final
09/25/23 09:15 Sputum Gram Stain - Final
[2023-09-27] MEDS: PLAVIX 75 MG PO (09:21)
--- NOTE | 2023-09-27 10:04 | W.PN.VS ---
Addendum entered and electronically signed by Uriel Sotomayor III, MD 09/27/23 12:42:
This patient was seen and examined with TIERA Reeves. I agree with the history and physical exam as well as the assessment and plan. I have the following additions:
Video swallow today
After discussions with patient and family members it sounds as though patient had dysphagia/aspiration concerns for some time preoperatively. Pre-existing condition
Will review swallow study results and make a plan from there continue
Oxygen wean
Out of bed
Pulmonary toilet
Signed:
Uriel Sotomayor III, MD
[facility]
[phone] (ekmi)
Original Note:
Today's Communication / Plan
-
Patient seen and examined at bedside with Dr. Uriel Sotomayor III, below plan reviewed with attending.
Assessment/Plan
-
POD 3 LEFT carotid endarterectomy with patch angioplasty using bovine pericardium, suspected right MCA ischemic stroke on 09/25/2023
Plan:
-Neurology following, appreciate recommendations may consider MRI when medically stable, given continued tenuous pulmonary status would prefer to obtain in the outpatient setting if neurology agreeable
-Medications switched to IV while waiting for swallow evaluation
-Video swallow evaluation today
-Continue DAPT per stroke protocol
-Out of bed to chair, ambulation as tolerated
-PT/OT/ST
-Wean O2
-Continue encourage incentive spirometry
-Continue chest PT
-Appreciate government program manager/pulmonology recommendations
Subjective Data
-
Date of Service: September 27, 2023
Patient seen and examined at bedside, drowsy but easily arousable. Mostly requesting coffee and her morning cigarette. She does endorse several months of inability to swallow but was just managing on her own in the outpatient setting prior to her
surgery.
Objective Data
-
Vital Signs
Temp Pulse Resp BP Pulse Ox
98.4 F 89 21 134/54 94
09/27/23 07:49 09/27/23 09:46 09/27/23 09:46 09/27/23 09:46 09/27/23 09:46
Intake and Output
09/26/23 09/27/23 09/28/23
06:59 06:59 06:59
Intake Total 440 / 440 650 / 650 100 / 100
Output Total 100 / 100 400 / 400
Balance 340 / 340 650 / 650 -300 / -300
Intake:
Oral fluids 100 / 100
IV fluids (Total) 240 / 240 500 / 500 100 / 100
Nss 1,000 ml @ 80 mls/hr IV . 160 / 160
[id number] ELODIA Rx#:[id number]
normal saline 80 / 80 500 / 500 100 / 100
IV piggybacks 100 / 100 150 / 150
Output:
Urine, Voided 100 / 100 400 / 400
Other:
Number of approximated MODERATE 2 1
amounts of urine
Number of approximated LARGE 1
amounts of urine
Lab Results
09/27/23 05:01
09/27/23 05:01
Calcium 9.1 mg/dl (8.4-10.2) 09/27/23 05:01
Physical Exam
-
AAOx3
No tachypnea on mid flow via nasal cannula
Mildly tachycardic in the 110s
Neck site flat, soft, clean dry and intact
Left upper extremity remains with scant drift compared to right, no facial droop, bilateral lower extremities with equal strength
Tongue midline
--- NOTE | 2023-09-27 11:57 | PTCARENOTE ---
Update at bedside with surgery this am. Plavix in apple sauce tolerated. Follow up concerns with vascular and dust handler teams in rounds. Continue assessment, lab trends and follow up vital sign trends. Video swallow completed. Nursing and pct to
support thru procedure. Update with Personal Computer Specialist, follow up concerns await radiology read and plan of cares. Will continue to follow.
[2023-09-27] MEDS: D5/0.9% SODIUM CHLORIDE 1000 IV (12:14)
--- NOTE | 2023-09-27 12:34 | PTOTSP ---
Video Swallow Examination
Patient presents with at least moderate oral and moderate-severe pharyngeal dysphagia which is acute on chronic. Patient aspirated with an ineffective cough with thin via tsp but eliminated this with use of a head turn to the left. There was deep
penetration of pharyngeal residue with thicker consistencies which temporarily cleared with coughing. Moderate severe pharyngeal retention noted with � piece of soft solid. Please see patient care note for full details of penetration/aspiration
and swallowing physiology.
Patient is at chronic risk for aspiration at this time and has elevated risks for complications from aspiration. She currently has PNA concerning for complications from her dysphagia. If patient/family should opt to continue a diet understanding
this elevated aspiration/complication risk, consider the following: L4 Puree, L0 Thin Liquids via cup with strategies (i.e., head turn left, multiple swallows, intermittent cough and re-swallow, alternate sips/bites, no straws) and medications
crushed in puree.
Recommend:
1. Goals of care discussion regarding nutrition/hydration with options including continuation of oral diet understanding aspiration risks vs NPO and non-oral means
2. Oral care 3x daily with suctioning
3. Medications non-oral if able, otherwise crushed in puree
4. Strategies: head turn left, multiple swallows, alternate sips/bites, avoid straw, intermittent cough and re-swallow to try and clear airway
5. Dysphagia follow up for education, instruction in compensations, and exercises as appropriate.
[2023-09-27 12:35] LABS: Venous Blood Gas B.E. 10.8 mmol/L (-4 to +4); Venous Blood Gas O2 Sat % 99.5 %; Venous Blood Gas pCO2 69 mmHg (35-48); Venous Blood Gas pH 7.36 (7.32-7.43); Venous Blood Gas pO2 187 mmHg (30-50)
--- NOTE | 2023-09-27 12:36 | PTCARENOTE ---
Update with Family via phone. Patient sister update that she is preparing to bring sister home. Patient sister update, constant coffee and cigarette habit. Reinforce need to stop smoking all together. Patient thru morning requesting just coffee and
cigarette. Video swallow completed, vbg sent, plan for xray as ordered. Continue to reinforce plan of cares. Patient speaking to family via phone. Patient also discussing difficulty in past few months with swallowing and recovery moves she would do
to help. Continue to follow along with critical care team. Ongoing teaching and supportive cares.
--- NOTE | 2023-09-27 13:38 | PTCARENOTE ---
Secretarial Teacher team at bedside. Sat with patient and discussed at length goals of cares. Discuss high risk aspiration, concerns with pulmonary status and hospice/end of life options. Patient discussing that she has dealt with eating issues for years,
coughing with intake, and that her lungs aren't getting better. Follow up patient plan of DNR. Await diet orders, possible transfer orders and patient just wants to go day by day, if she passes she will be with her .
--- NOTE | 2023-09-27 14:08 | W.PN.UPDATE ---
Update Note
Progress Note Update
I had conversation with patient regarding multiple issues including her continued hypoxia, her aspiration risk, the fact that she has been refusing different interventions/care, and her continued request to 'just go home and smoke a cigarette.' I
explained that because she is on a high level of oxygen, it will be very difficult for us to get her home, unless she is on hospice. She says that she does not want to talk to hospice as she had a 'bad experience with them in June [2022].'
When I asked for further details she said that they are 'a bunch of assholes.' She says that if she can 'just get out of bed it will help my oxygen levels.' PT/OT is ordered, of note.
I asked that if her breathing got worse and she needed to be on a ventilator to save her life, would this be okay with her. She immediately shook her head. She says that she wants to go be with her , who this past June, and she
says that her brother about 1 week just prior to that. I then asked if her heart were to stop would she want us to resuscitate her then and do CPR. She again said no. I asked her to re-consider speaking to susan because getting her home
will be the real issue considering she is on oxygen currently at 9L/min and she likely needs more than that during activity, and at least if she were on hospice that we could work on getting her home with morphine for SOB if she were to feel air
hunger. She again refused.
Lastly, I brought up how her carbon dioxide levels are elevated, and this is likely due to her COPD. I discussed her need to BiPAP with sleep, and explained what that is. She did not refuse it, and said she would 'try it.' BiPAP HS order is in.
[facility]. Will work on downgrade out of ICU and we will continue to follow along as a pulmonary consult.
--- NOTE | 2023-09-27 15:03 | CM ---
CM following re: discharge planning.
Discussed in rounds, reviewed pt's chart, met with pt. Per Rounds meeting, goals of care will be discussed with the pt, continue supportive care and pt will be downgraded from ICU level of care. Per conversation with MD and RN pt wants to be
reunited with her who in June 2023, pt is DNR. Pt currently requires 10 L midflow NC of O2.
PT and OT evaluations noted: Acute vs SNF level of care recommended.
D/C plan: uncertain at this time and will depend on pt's progress.
CM will follow with discharge plan updates as hospitalization progresses
--- NOTE | 2023-09-27 15:04 | PTCARENOTE ---
Patient working with pt/ot. Out of bed to chair at present. Exercises with pt/ot team while in chair. Small sips of coffee with supervision tolerated well. Maintain in strict aspiration precautions. Presently on 9lpm midflo. Patient teaching
reinforce incentive spirometer, flutter valve, cough and deep breathing exercises. Follow up steroids and abx as ordered. Patient reinforcing with staff that she just wants to go home. Supportive cares and emotional support ongoing.
--- NOTE | 2023-09-27 15:27 | PTCARENOTE ---
Sat with patient to discuss history of difficulty eating. Patient discussing how she eats some foods and changes in how she was eating over past. Examples like, soak her cookies in coffee to soften them, ice cream every night, and foods with soft
centers. Call with patient to select dinner. Continue supportive cares, emotional support, continue with exercise while in chair.
[2023-09-27] MEDS: LOVENOX 30 MG SC (17:40)
[2023-09-27] MEDS: ROBITUSSIN 600 MG PO ×2 (17:40→19:50)
--- NOTE | 2023-09-27 18:08 | PTCARENOTE ---
Assist and supervision with dinner 100% taken. Again with staff, chair to stand, march in place and transition to bed one person assist and supervision patient tolerated very well. VSS heart rate 108 bp 163/80 pre transition. Some improved overall
airway clearance, cough deep breath and flutter valve. Patient updating family via phone. Continue with teaching and supportive cares. Patient expressing plans to be discharged by Sunday, continue to reinforce concerns, follow up emotional
support.
[2023-09-27] MEDS: ZITHROMAX INFUSION 250 IV (18:42)
[2023-09-27] MEDS: BUSPAR 10 MG PO (19:49)
[2023-09-27] MEDS: ROXICODONE 5 MG PO (19:50)
--- NOTE | 2023-09-27 20:00 | PTCARENOTE ---
patient received in bed, AAOx3. [place], left arm weaker than the right, + ataxia. NIH 2, GCS 15. NSR with PACs on monitor, afebrile, blood pressure as documented. palpable pulses throughout, no edema noted. Lungs coarse, pulse ox 94% on 9L. Using
yankauer for secretions. Abdomen soft. Voiding haleigh urine. #20 g in RAC flushed and patent. Plan of care discussed, call lofton within reach
[2023-09-27] MEDS: COZAAR 50 MG PO (21:40)
[2023-09-27] MEDS: LOW STRENGTH ASPIRIN 81 MG PO (21:40)
[2023-09-27] MEDS: PRAVACHOL 80 MG PO (22:35)
[2023-09-27] MEDS: LOPRESSOR 5 MG IV (22:35)
--- NOTE | 2023-09-27 22:41 | PTCARENOTE ---
Patients heart rate increased to 210, EKG conformed AFib, notified EMPLOYEE COMMUNICATIONS MANAGER, order received
--- NOTE | 2023-09-27 23:12 | PTCARENOTE ---
patient now in nsr, heart rate 80s, labs sent
--- NOTE | 2023-09-27 23:39 | PTCARENOTE ---
Patient resting, placed on BiPap 8/4 with 10L.
[2023-09-27 23:51] LABS: Blood Urea Nitrogen 41 mg/dl (7-17); Calcium 9.1 mg/dl (8.4-10.2); Carbon Dioxide 36 mmol/L (22-30); Chloride 100 mmol/L (98-107); Estimated Creatinine Clearance 53 ml/min; Glucose 176 mg/dl (70-99); Magnesium 2.1 mg/dl (1.6-2.3); Potassium 4.3 mmol/L (3.5-5.1); Sodium 136 mmol/L (135-145); eGFR > 60.00
[2023-09-28] VITALS (15 sets, daily range): BP systolic 119–176; BP diastolic 61–78; PULSE 91; O2SAT 95; BMI 16.3
[2023-09-28] MEDS: ZOSYN 50 IV ×5 (00:16→22:44)
--- NOTE | 2023-09-28 02:46 | PTCARENOTE ---
patient off BiPap, placed back in midflow
[2023-09-28] MEDS: SOLU-MEDROL PF 40 MG IV ×3 (05:12→20:17)
[2023-09-28 06:34] LABS: Venous Blood Gas B.E. 12.6 mmol/L (-4 to +4); Venous Blood Gas HCO3 35.7 mmol/L (22-27); Venous Blood Gas O2 Sat % 99.5 %; Venous Blood Gas pCO2 39 mmHg (35-48); Venous Blood Gas pH 7.57 (7.32-7.43); Venous Blood Gas pO2 243 mmHg (30-50)
[2023-09-28 06:36] LABS: Venous Blood Gas O2 Therapy 9L/min
[2023-09-28 06:40] LABS: Hematocrit 37.2 % (37.0-47.0); Hemoglobin 12.6 g/dL (12.0-16.0); Mean Corp Hgb Conc. 33.9 g/dL (33.0-37.0); Mean Corpuscular Hgb 29.8 pg (27.0-31.0); Mean Corpuscular Volume 87.9 fL (81.0-99.0); Mean Platelet Volume 11.2 fL (7.4-10.4); Platelet Count 171 10^3/uL (130-400); Red Blood Cell Count 4.23 10^6/uL (4.20-5.40)
[2023-09-28 07:16] LABS: ALT (SGPT) 15 U/L (0-35); AST (SGOT) 23 U/L (14-36); Albumin 3.2 g/dl (3.5-5.0); Alkaline Phosphatase 73 U/L (38-126); Blood Urea Nitrogen 39 mg/dl (7-17); Calcium 9.3 mg/dl (8.4-10.2); Carbon Dioxide 32 mmol/L (22-30); Chloride 103 mmol/L (98-107); Direct Bilirubin 0.2 mg/dl (0.0-0.4); Estimated Creatinine Clearance 53 ml/min; Glucose 135 mg/dl (70-99); Magnesium 2.1 mg/dl (1.6-2.3); Phosphorus 2.8 mg/dl (2.5-4.5); Potassium 4.3 mmol/L (3.5-5.1); Sodium 135 mmol/L (135-145); Total Bilirubin 0.7 mg/dl (0.2-1.3); Total Protein 5.6 g/dl (6.3-8.2); eGFR > 60.00
[2023-09-28] MEDS: PLAVIX 75 MG PO (07:50)
[2023-09-28] MEDS: ZITHROMAX 250 MG PO (07:50)
[2023-09-28] MEDS: BUSPAR 10 MG PO ×2 (07:50→20:16)
[2023-09-28] MEDS: NORVASC 5 MG PO (07:50)
[2023-09-28] MEDS: ROBITUSSIN 600 MG PO ×4 (07:50→22:32)
[2023-09-28] MEDS: NICODERM TRANSDERMAL 21 MG TRANSDERM (07:51)
[2023-09-28] MEDS: SYMBICORT 160/4.5 MCG INHALER 2 PUFF INH ×2 (08:00→17:57)
[2023-09-28] MEDS: MUCOMYST 10% 4 ML INH (08:00)
[2023-09-28] MEDS: VENTOLIN NEBULES 2.5 MG INH (08:00)
[2023-09-28] MEDS: SPIRIVA RESPIMAT 2.5 MCG 2 PUFF INH (08:00)
[2023-09-28] MEDS: PROTONIX 40 MG PO (08:56)
--- NOTE | 2023-09-28 10:13 | CM ---
CM following re: discharge planning.
Reviewed pt's chart, met with pt.
Pt requested right away she will go home tomorrow. Pt stated her niece Tracy will stay with her and friend Yumiko will help. Pt stated her 2 cats asking her 'mommy come home'. Pt is aware that PT and OT recommend acute rehab vs SNF and pt politely
declined it stating: 'i am going home tomorrow, my cats awaiting for me, they talk to me and I can walk by myself'. Pt refused bi-pap and pt stated she might need oxygen.
Pt referred to [facility] in case pt will change her mind and will agree to go to [facility].
As an alternate, pt referred to [facility] in case pt will refuse going to [place] [facility]. Pt adamantly refused SNF level of care.
D/C plan: Plan A: [facility] acute rehab. Plan B: home with [facility] and family support.
CM will follow with discharge plan updates as hospitalization progresses
--- NOTE | 2023-09-28 10:42 | PTCARENOTE ---
arrived to 2100 at 0925 from ICU. Aox3. no discomfit, weak. On 4l O2 98%. Wet cough. bed low call lofton in reach. Sutures DIALYSIS SOCIAL WORKER glue.
Dr. Sotomayor assessing pt, she would like to go home and care for self. O2 needs to be weaned. He had started to wean to 2l 92-93% turned off O2 RA Spo2....83%....1l 89% with bed up a little more `70 degrees. No distress. Will continue to wean and
also get walking pulse ox.
--- NOTE | 2023-09-28 12:11 | W.PN.PUL3 ---
Today's Communication / Plan
-
Remains on 8L NC, weaning as tolerated
Moderate COPD, resumed on home inhalers, nebs as needed
IV steroids, will start to wean today
PT/OT assessments likely to need rehab which patient refused
She would like to go home and sign out AMA
Further postop care per team
Assessment
-
77-year-old female active tobacco smoker with a past medical history of sleep apnea, PVD with claudication s/p right iliac artery stent, COPD, hyperlipidemia/hypertension who presents for elective left-sided carotid endarterectomy. Patient known to
[facility] via Dr. Sotomayor, with last office visit on 08/21/2023. At that office visit her imaging via CT angiogram was reviewed and she has severe bilateral carotid artery disease. 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
arterial disease with diffusely small caliber right common carotid artery with retrograde flow, making surgical intervention high risk. She has a high-grade left carotid artery stenosis that is amenable to surgical intervention and it was
recommended to proceed with a left-sided carotid endarterectomy. Operative risks and benefits were discussed and patient agreed to this procedure. On 09/24/2023 she underwent left-sided carotid endarterectomy, with a EBL 12 cc and no immediate
complications. Patient was transferred to the ICU for postoperative care and hand gluer and slicer services consulted for additional management/recommendations.
Chronic medical conditions PULP TESTER: Hyperlipidemia, chronic airway obstruction NEC, vitamin D deficiency, sleep apnea, PVD with claudication, JACINTA, anxiety, basal cell carcinoma, hypertension, PAD s/p right iliac artery stent, COPD, allergic rhinitis
Impression:
#Bilateral carotid artery stenosis s/p left carotid endarterectomy � POD#3
#Left pronator drift - stroke alert called on AM of 09/24 - no evidence of CVA per brain imaging
#Leukocytosis
#Multifocal CAP (RUL/RML and LLL) with Hx of Pseudomonas auruginosa seen on sputum Cx from 2022
#Acute respiratory failure with hypoxemia due to CAP in the setting of COPD exacerbation
#Hyponatremia (resolved)
#Moderate COPD with paraseptal emphysema (post-BD FEV1: 53% predicted via spirometry from 04/2023)
#Mild restrictive lung disease (post-BD FVC: 62% predicted via spirometry from 04/2023)
#Active tobacco use disorder
Plan:
Supplemental oxygen as needed to maintain SpO2 >88% and wean as tolerated --> she is currently on 8L midflow
Continue to wean as tolerated
Airway clearance as tolerated
Frequent NT-suctioning prn
Dr Bolton discussed bronchoscopy with the patient on 09/25 and that considering her high O2 requirements, safest method would be going through her nose, otherwise if we sedate her then she will likely need to be intubated. She refused the
procedure. She also does not want to be intubated (see below) - I explained the benefit of a bronchoscopy and the risk of having her secretions in setting of her high oxygen requirements.
She will need home O2 eval prior to discharge
On Breztri as an outpatient - continue Symbicort and Spiriva and resume Breztri once discharged
On IV steroids, taper as tolerated
Continue flutter valve in attempt to improve pulmonary toilet
Ok to resume PO meds as long as crushed into pureed as per OVEN STRIPPER; she continues to be high aspiration risk, she is aware of this risk and wishes to continue with pur�ed diet
Of note, as per discussion with the bedside RN and pt's sister, pt has been having difficulty swallowing for few months.
Continue incentive spirometry
Aspiration precautions
Continue ABx with Zosyn given her leukocytosis with RUL opacity and left basilar opacity seen on CXR - duration will be 6 days. Her WBC is improving, hence can likely narrow ABx down to Unasyn tomorrow (09/27). Given her COPD with acute flare, I
will start her on Azithromycin as well x 5 days
Maintain MAP>65
She will need repeat CT chest in 6-8 weeks to assure her multifocal consolidations resolve
Neurovascular checks per protocol
Continue neurochecks q4hr given her stroke-like symptoms on AM of 09/24
Continue DAPT
Vascular surgery following-correspondence and operative notes reviewed
Continue further postop care
PT/OT assessment
DVT prophylaxis: LMWH 30mg q PM
Early nutrition
Goal BG 140-180mg/dL
Early mobilization
Eventually she will need to follow-up with us in the office again for COPD management and tobacco use disorder that qualifies her for annual LDCT chest for lung cancer screening purposes. She last saw us on 04/30/2023 with TIERA Zaragoza and
Dr. Veloz. I will arrange for outpatient office visit with us, however she does say that she is moving to [place] so it is unlikely that she will actually follow-up with us. I encouraged her to locate a assistant professor of anthropology near her residence if she ends
up moving to [place].
Discharge planning per team
Family Discussions
Bolton 09/27/23: I had extensive goals of care discussion with her today (see separate update note). Patient is now DNR/DNI and with full medical treatment. Hospice was discussed but she is not interested as she had a bad experience with them
from June 2023. I did ask her to reconsider speaking with them as given her high oxygen requirements it may be hard for her to be discharged home. She keeps repeating that she 'just wants to go home and be with my cats and smoke a cigarette.'
She also has been refusing care at times.
Diagnostic Data:
CTA Head/Neck - stroke alert - 09/25/2023:
Patent left internal carotid artery, following recent carotid endarterectomy with postsurgical changes seen within the accompanying/adjacent soft tissues.
Findings again seen suggesting marked stenosis, possible near occlusion of the right brachiocephalic artery, somewhat limited in evaluation at this time due to adjacent venous contrast.
Diffuse marked narrowing/caliber of the right common carotid and right internal carotid arteries again seen as well as some diffuse narrowing of the right middle cerebral artery as compared to the left middle cerebral artery, overall without
significant change.
NEW MARKED CONSOLIDATIONS of the portions of the right upper lobe and left lower lobe of the lung in the interval since recent prior study. Consider endobronchial obstruction such as secretions.
CTA head/neck with/without contrast 08-28-2023:
1. � No acute intracranial abnormality identified.
2. 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 Associated diffuse severely narrowed caliber of the right common carotid artery and the right internal carotid artery with threadlike opacification as above. Associated diffuse
narrowing of right middle cerebral territory vessels as compared with the left.
3. � Stenosis of the origin of the left internal carotid artery of approximately 72% secondary to calcific plaque.
4. � Diffuse narrow caliber of left posterior cerebral artery as compared with the right.
CT Head without contrast 09-25-2023: No acute intracranial abnormality.
CXR 09-24-2023: Right upper lobe pneumonia
CXR 09-25-2023:
Vague right upper lobe opacity which could represent pneumonia, slightly improved
New left basilar opacity which could represent subsegmental atelectasis and/or pneumonia. Cannot exclude small left pleural effusion.
CXR 09-26-2023:
Persistent vague opacity in the right upper to midlung with prominence of the right hilar shadow. Findings most likely represent pneumonia and/or atelectasis.
Confluent increased opacity of the left lower hemithorax, particularly medially with loss of definition of the left hemidiaphragm, stable appearance from recent examination of September 25, 2023.
Outpatient [facility] Data:
PFT:
������ [place] 04/30/23: FVC 1.59/62%, FEV1 1/52%, ratio 63%, no significant BD response. Moderate obstruction and suggestive of mild restrictive pattern.
�������PFT 03/24/2015: FVC 1.79/60%, FEV1 1.21/54%, ratio 68%, no significant BD response, TLC 3.6/76%, DLCO 10.38/49%, DLCO/VA 3.21/72%. Moderate obstruction. Mild restriction. Moderately reduced diffusing capacity, improved with alveolar adjustment.
6 MWT:
������ 6MWT 04/30/23: At rest, O2 98% on room air, heart rate 85. With ambulation, O2 remained between 98 to 100% on room air, max heart rate 106. 0/10 on dyspnea scale. Ambulated 750 feet.
RADIOGRAPHIC STUDIES:
������ CT chest PE study 03/30/2023: No PE. Mild paraseptal emphysema in both lung apices. Small groundglass opacities in the right upper lobe which are nonspecific but could reflect a mild pneumonitis or potentially a mild viral pneumonia. Bilateral
lower lobe peribronchial thickening with mild mucous plugging in the right lower lobe.
�������CXR 03/30/23: NAD
�������CXR 10/21/2022: No acute disease
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
CARDIAC STUDIES:
������ Echo 03/30/2023: Mild concentric LVH. EF 54%. Mild MR. Mild .
LABS:
������ 04/02/2023: Hemoglobin 14.1
�������04/01/2023: Sputum positive for Pseudomonas aeruginoas
�������03/30/2023: proBNP 2039.
Subjective Data
-
Date of Service:
Date of Service: September 28, 2023
Chief Complaint: Pulmonary Follow Up
Subjective:
no acute events ON
stable on room air
no complaints, wants to go home
Objective Data
Data Reviewed
Vital Signs / I&O / Oxygen:
Vital Signs
Temp Pulse Resp BP Pulse Ox
98.4 F 88 16 119/61 92
09/28/23 11:42 09/28/23 11:42 09/28/23 11:42 09/28/23 11:42 09/28/23 11:42
Intake and Output
09/27/23 09/28/23 09/29/23
06:59 06:59 06:59
Intake Total 650 / 650 820 / 820
Output Total 600 / 600
Balance 650 / 650 220 / 220
SaO2 92
Nasal Cannula flow liters per 1
minute
Physical Exam
General: Comfortable, Other (NAD) and Other (thin appearing)
HEENT: Normocephalic, Anicteric and Moist Mucous Membranes
Cardiovascular: S1-S2 and Regular Rhythm
Respiratory: Clear and Non-Labored Respirations
GI: Soft, Non Distended and Non Tender
Neurology: Awake, Alert, Oriented, AO x 3 and No Motor Deficits
Skin: Warm, Dry and Good Color
Labs/Micro/Reports
Lab Data
09/28/23 06:18
09/28/23 06:18
Laboratory Results
09/27/23
22:27
pH Cancelled
pCO2 Cancelled
pO2 Cancelled
HCO3 Cancelled
O2 Delivery Level Cancelled
Microbiology
09/25/23 14:14 Blood/Venous Blood Culture - Preliminary
No Growth in 48 hours- Final report to follow
09/25/23 18:52 Urine Legionella Urinary Antigen - Final
Negative for Legionella pneumophila Serogroup 1 antigen.
A negative result does not rule out the possiblity of
Legionella infection due to other serogroups or species of
Legionella. Clinical correlation is recommended.
09/25/23 18:52 Urine Streptococcus pneumoniae Antigen (M - Final
Negative for Streptococcus pneumoniae antigen.
A negative result does not exclude infection with
Streptococcus pneumoniae. Clinical correlation is
recommended.
09/25/23 09:15 Sputum Respiratory Culture - Final
09/25/23 09:15 Sputum Gram Stain - Final
--- NOTE | 2023-09-28 13:25 | W.PN.VS ---
Documented by User: Ras Gallego MD, Resident 09/28/23 13:29
Today's Communication / Plan
-
-Wean oxygen as tolerated. Please lower O2 by 1L/hour for goal pulse ox 88-92
-6 minute walk test
-Continue DAPT per stroke protocol
-Out of bed to chair, ambulation as tolerated
-PT/OT/ST
-Continue encourage incentive spirometry
-Continue chest PT
-Appreciate health management consultant recommendations
Assessment/Plan
-
POD 4 LEFT carotid endarterectomy with patch angioplasty using bovine pericardium, suspected right MCA ischemic stroke on 09/25/2023, otherwise progressing well.
Plan:
-resume oral diet and medications
-minimal oxygen required to keep sats between 88-92
-6 minute walk test
-Continue DAPT per stroke protocol
-Out of bed to chair, ambulation as tolerated
-PT/OT/ST
-Continue encourage incentive spirometry
-Continue chest PT
-Appreciate health management consultant recommendations
Subjective Data
-
Date of Service: September 28, 2023
Feels well. No complaints. Would like to leave.
Objective Data
-
Vital Signs
Temp Pulse Resp BP Pulse Ox
98.4 F 88 16 119/61 92
09/28/23 11:42 09/28/23 11:42 09/28/23 11:42 09/28/23 11:42 09/28/23 11:42
Intake and Output
09/27/23 09/28/23 09/29/23
06:59 06:59 06:59
Intake Total 650 / 650 820 / 820
Output Total 600 / 600
Balance 650 / 650 220 / 220
Intake:
Oral fluids 420 / 420
IV fluids (Total) 500 / 500 100 / 100
normal saline 500 / 500 100 / 100
IV piggybacks 150 / 150 300 / 300
Output:
Urine, Voided 600 / 600
Other:
Number of approximated MODERATE 1 1
amounts of urine
Number of approximated LARGE 1
amounts of urine
Lab Results
09/28/23 06:18
09/28/23 06:18
Calcium 9.3 mg/dl (8.4-10.2) 09/28/23 06:18
Phosphorus 2.8 mg/dl (2.5-4.5) 09/28/23 06:18
Magnesium 2.1 mg/dl (1.6-2.3) 09/28/23 06:18
Total Bilirubin 0.7 mg/dl (0.2-1.3) 09/28/23 06:18
Direct Bilirubin 0.2 mg/dl (0.0-0.4) 09/28/23 06:18
AST 23 U/L (14-36) 09/28/23 06:18
ALT 15 U/L (0-35) 09/28/23 06:18
Alkaline Phosphatase 73 U/L (38-126) 09/28/23 06:18
Total Protein 5.6 g/dl (6.3-8.2) L 09/28/23 06:18
Albumin 3.2 g/dl (3.5-5.0) L 09/28/23 06:18
Physical Exam
-
Neuro: A&Ox3
HEENT: Carotid incision healing well
Cardiac: RRR
Pulm: Diffuse wheezing throughout, on 4L NC
Abd: soft, non-tender, non-distended

Documented by User: Uriel Sotomayor III, MD 09/28/23 14:35
Today's Communication / Plan
-
-Wean oxygen as tolerated. Please lower O2 by 1L/hour for goal pulse ox 88-92
-6 minute walk test
-Continue DAPT per stroke protocol
-Out of bed to chair, ambulation as tolerated
-PT/OT/ST
-Continue encourage incentive spirometry
-Continue chest PT
-Appreciate health management consultant recommendations
This patient was seen and examined with aRs Gallego MD PGY-1. I agree with the history and physical exam as well as the assessment and plan. I have the following additions:
Continue oxygen wean
Walk test
Continue diet as tolerated
Signed:
Uriel Sotomayor III, MD
[facility]
[phone] (btyp)
--- NOTE | 2023-09-28 16:28 | VNURNOTE ---
Home Health Liaison met with patient at 1430 to discuss [facility] nurse/therapy, visits, schedule and homebound status. Patient is agreeable and understands that visits at home will be 2-3 x per week to assess and teach medical management. Patient was
drowsy during visit, liaison discussed having a private caregiver.
Patient made call to her niece to confirm that she would be going to niece's home in [place] at discharge for couple of days prior to going back to her own home.
VN referral made but will be pending acceptance and patient will be seen once she returns to her own home early next week.
Patient does not have support at her own home and niece has confirmed that she will be alone.
Family is aware that this is a safety issue. Tracy (niece) [phone].
[facility] brochure provided with contact information.
[2023-09-28] MEDS: LOVENOX 30 MG SC (17:36)
--- NOTE | 2023-09-28 18:31 | PTCARENOTE ---
return to floor about 1715. Placed in restraints d/t removing IV and pulling at dressings., being uncooperative to care, and for her safety. Started IVF d/t HR 110. bed low call [facility] in [facility]. NPO until o600? but supply sips of H20
--- NOTE | 2023-09-28 18:37 | PTCARENOTE ---
Discussed with pt thru-out shift concerns about going home without assistance, bathroom being on second floor and high risk for fall with her being so weak, barely able to feed herself with assistance with set-up. Unable to wean off 1l desats to 83%
while up, she is unstable.
[2023-09-28] MEDS: PRAVACHOL 80 MG PO (22:31)
[2023-09-28] MEDS: LOW STRENGTH ASPIRIN 81 MG PO (22:32)
[2023-09-28] MEDS: COZAAR 50 MG PO (22:32)
[2023-09-29 03:35] VITALS: BP 140/74
[2023-09-29] MEDS: ZOSYN 50 IV (05:43)
[2023-09-29 07:00] VITALS: BP 175/86
[2023-09-29 07:03] LABS: Hematocrit 42.6 % (37.0-47.0); Hemoglobin 13.8 g/dL (12.0-16.0); Mean Corp Hgb Conc. 32.4 g/dL (33.0-37.0); Mean Corpuscular Hgb 29.9 pg (27.0-31.0); Mean Corpuscular Volume 92.4 fL (81.0-99.0); Mean Platelet Volume 11.7 fL (7.4-10.4); Platelet Count 194 10^3/uL (130-400); Red Blood Cell Count 4.61 10^6/uL (4.20-5.40); Red Cell Dist. Width 13.4 % (11.5-14.5); White Blood Cell Count 17.2 10^3/uL (4.8-10.8)
[2023-09-29 07:26] LABS: Blood Urea Nitrogen 36 mg/dl (7-17); Calcium 9.4 mg/dl (8.4-10.2); Carbon Dioxide 32 mmol/L (22-30); Chloride 102 mmol/L (98-107); Estimated Creatinine Clearance 52 ml/min; Glucose 111 mg/dl (70-99); Potassium 4.4 mmol/L (3.5-5.1); Sodium 138 mmol/L (135-145); eGFR > 60.00
[2023-09-29] MEDS: SYMBICORT 160/4.5 MCG INHALER 2 PUFF INH (08:16)
[2023-09-29] MEDS: SPIRIVA RESPIMAT 2.5 MCG 2 PUFF INH (08:16)
[2023-09-29] MEDS: NORVASC 5 MG PO (09:02)
[2023-09-29] MEDS: ZITHROMAX 250 MG PO (09:02)
[2023-09-29] MEDS: PROTONIX 40 MG PO (09:03)
[2023-09-29] MEDS: PLAVIX 75 MG PO (09:03)
[2023-09-29] MEDS: NICODERM TRANSDERMAL 21 MG TRANSDERM (09:05)
[2023-09-29] MEDS: BUSPAR 10 MG PO (09:06)
[2023-09-29] MEDS: ROBITUSSIN PO (09:13)
--- NOTE | 2023-09-29 09:18 | W.PN.VS ---
Today's Communication / Plan
-
patient strongly discouraged from leaving ama
Assessment/Plan
-
POD 5 LEFT carotid endarterectomy with patch angioplasty using bovine pericardium, suspected right MCA ischemic stroke on 09/25/2023, otherwise progressing well.
Plan:
-continues to desat off oxygen
- barely eating
- still needs assistance ambulating
discussed at length with patient the risk of leaving. Tried to offer alternatives to encourage her to stay. Despite lengthy conversation reviewing risks, she insists on leaving.She signed AMA form
Subjective Data
-
Date of Service: September 29, 2023
Patient eager to go home and insisting on leaving AMA
Objective Data
-
Vital Signs
Temp Pulse Resp BP Pulse Ox
97.5 F 84 20 175/86 96
09/29/23 07:00 09/29/23 09:02 09/29/23 07:00 09/29/23 09:02 09/29/23 07:00
Intake and Output
09/28/23 09/29/23 09/30/23
06:59 06:59 06:59
Intake Total 820 / 820 520 / 520
Output Total 600 / 600
Balance 220 / 220 520 / 520
Intake:
Oral fluids 420 / 420 220 / 220
IV fluids (Total) 100 / 100 100 / 100
normal saline 100 / 100
IV piggybacks 300 / 300 200 / 200
Output:
Urine, Voided 600 / 600
Other:
Number of approximated MODERATE 1 3
amounts of urine
Number of approximated LARGE 1
amounts of urine
Lab Results
09/29/23 05:16
09/29/23 05:16
Calcium 9.4 mg/dl (8.4-10.2) 09/29/23 05:16
Phosphorus 2.8 mg/dl (2.5-4.5) 09/28/23 06:18
Magnesium 2.1 mg/dl (1.6-2.3) 09/28/23 06:18
Total Bilirubin 0.7 mg/dl (0.2-1.3) 09/28/23 06:18
Direct Bilirubin 0.2 mg/dl (0.0-0.4) 09/28/23 06:18
AST 23 U/L (14-36) 09/28/23 06:18
ALT 15 U/L (0-35) 09/28/23 06:18
Alkaline Phosphatase 73 U/L (38-126) 09/28/23 06:18
Total Protein 5.6 g/dl (6.3-8.2) L 09/28/23 06:18
Albumin 3.2 g/dl (3.5-5.0) L 09/28/23 06:18
Physical Exam
-
rrr
course bs bilat
inc c/d/i
neuro intact
[2023-09-29] MEDS: SOLU-MEDROL PF 40 MG IV (09:22)
--- NOTE | 2023-09-29 09:33 | W.PN.PUL3 ---
Today's Communication / Plan
-
Remains on O2 but weaned down to 1L NC, wean as tolerated with walking pulse ox prior to her leaving
Moderate COPD, resumed on home inhalers, nebs as needed
IV steroids, would wean today and DC home on prednisone taper even if she is leaving AMA
Also finish off course of ABx with Augmentin and Azithro
PT/OT assessments likely to need rehab which patient refused
Further postop care per vascular team
Patient has decided to leave AMA - strongly encouraged not to. Risks of discussed. She has capacity to make her own choices.
Assessment
-
77-year-old female active tobacco smoker with a past medical history of sleep apnea, PVD with claudication s/p right iliac artery stent, COPD, hyperlipidemia/hypertension who presents for elective left-sided carotid endarterectomy. Patient known to
[facility] via Dr. Sotomayor, with last office visit on 08/21/2023. At that office visit her imaging via CT angiogram was reviewed and she has severe bilateral carotid artery disease. 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
arterial disease with diffusely small caliber right common carotid artery with retrograde flow, making surgical intervention high risk. She has a high-grade left carotid artery stenosis that is amenable to surgical intervention and it was
recommended to proceed with a left-sided carotid endarterectomy. Operative risks and benefits were discussed and patient agreed to this procedure. On 09/24/2023 she underwent left-sided carotid endarterectomy, with a EBL 12 cc and no immediate
complications. Patient was transferred to the ICU for postoperative care and [facility] consulted for additional management/recommendations.
Chronic medical conditions PURCHASING SPECIALIST: Hyperlipidemia, chronic airway obstruction NEC, vitamin D deficiency, sleep apnea, PVD with claudication, JACINTA, anxiety, basal cell carcinoma, hypertension, PAD s/p right iliac artery stent, COPD, allergic rhinitis
Impression:
#Bilateral carotid artery stenosis s/p left carotid endarterectomy � POD#5
#Left pronator drift - stroke alert called on AM of 09/24 - no evidence of CVA per brain imaging
#Leukocytosis
#Multifocal CAP (RUL/RML and LLL) with Hx of Pseudomonas auruginosa seen on sputum Cx from 2022
#Acute respiratory failure with hypoxemia due to CAP in the setting of COPD exacerbation
#Hyponatremia (resolved)
#Moderate COPD with paraseptal emphysema (post-BD FEV1: 53% predicted via spirometry from 04/2023)
#Mild restrictive lung disease (post-BD FVC: 62% predicted via spirometry from 04/2023)
#Active tobacco use disorder
Plan:
Supplemental oxygen as needed to maintain SpO2 >88% and wean as tolerated --> she is currently on 1L/m NC
Continue to wean as tolerated and check walking pulse ox prior to discharge, however she is leaving AMA after being strongly encouraged not to do so
Airway clearance as tolerated
Frequent NT-suctioning prn
I discussed bronchoscopy with the patient on 09/25 and that considering her high O2 requirements, safest method would be going through her nose, otherwise if we sedate her then she will likely need to be intubated. She refused the procedure. She
also does not want to be intubated (see below) - I explained the benefit of a bronchoscopy and the risk of having her secretions in setting of her high oxygen requirements.
She will need home O2 eval prior to discharge
On Breztri as an outpatient - continue Symbicort and Spiriva and resume Breztri once discharged
On IV steroids, taper as tolerated --> if leaving AMA today then we should at least Rx her a prednisone taper starting at 50mg and reducing by 10mg every 4th day until off.
Continue flutter valve in attempt to improve pulmonary toilet
Ok to resume PO meds as long as crushed into pureed as per W[employer]; she continues to be high aspiration risk, she is aware of this risk and wishes to continue with pur�ed diet
Of note, as per discussion with the ICU kendal RN (Morris) and pt's sister, pt has been having difficulty swallowing for few months.
Continue incentive spirometry
Aspiration precautions
Continue ABx with Zosyn given her leukocytosis with RUL opacity and left basilar opacity seen on CXR - duration will be 6 days. Her WBC is improving, hence can likely narrow ABx down to Unasyn today and can DC her home on Augmentin to finish this
course. Given her COPD with acute flare, I started her on Azithromycin x 5 days
Maintain MAP>65
She will need repeat CT chest in 6-8 weeks to assure her multifocal consolidations resolve - she plans to follow with a painter apprentice down in [place].
Neurovascular checks per protocol
Continue neurochecks q4hr given her stroke-like symptoms on AM of 09/24
Continue DAPT
Vascular surgery following-correspondence and operative notes reviewed
Continue further postop care
PT/OT assessment
DVT prophylaxis: LMWH 30mg q PM
Early nutrition
Goal BG 140-180mg/dL
Early mobilization
Eventually she will need to follow-up with us in the office again for COPD management and tobacco use disorder that qualifies her for annual LDCT chest for lung cancer screening purposes. She last saw us on 04/30/2023 with TIERA Zaragoza and
Dr. Veloz. I will arrange for outpatient office visit with us, however she does say that she is moving to [place] so it is unlikely that she will actually follow-up with us. I encouraged her to locate a painter apprentice near her residence if she ends
up moving to [place].
Discharge planning per team. Pt is leaving [place] despite being encouraged not to do so.
Family Discussions
[place] 09/27/23: I had extensive goals of care discussion with her today (see separate update note). Patient is now DNR/DNI and with full medical treatment. Hospice was discussed but she is not interested as she had a bad experience with them
from June 2023. I did ask her to reconsider speaking with them as given her high oxygen requirements it may be hard for her to be discharged home. She keeps repeating that she 'just wants to go home and be with my cats and smoke a cigarette.'
She also has been refusing care at times.
Total time spent today was 25 minutes for this encounter. Time includes reviewing laboratory test/imaging results, reviewing pertinent medical records, obtaining and reviewing medical history, performing an appropriate exam, ordering medications,
tests and procedures. Time also includes documentation of this encounter, coordinating patient care and communicating with other healthcare professionals. Total time does not include separately billed tests performed on this date of service.
Diagnostic Data:
CTA Head/Neck - stroke alert - 09/25/2023:
Patent left internal carotid artery, following recent carotid endarterectomy with postsurgical changes seen within the accompanying/adjacent soft tissues.
Findings again seen suggesting marked stenosis, possible near occlusion of the right brachiocephalic artery, somewhat limited in evaluation at this time due to adjacent venous contrast.
Diffuse marked narrowing/caliber of the right common carotid and right internal carotid arteries again seen as well as some diffuse narrowing of the right middle cerebral artery as compared to the left middle cerebral artery, overall without
significant change.
NEW MARKED CONSOLIDATIONS of the portions of the right upper lobe and left lower lobe of the lung in the interval since recent prior study. Consider endobronchial obstruction such as secretions.
CTA head/neck with/without contrast 08-28-2023:
1. � No acute intracranial abnormality identified.
2. 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 Associated diffuse severely narrowed caliber of the right common carotid artery and the right internal carotid artery with threadlike opacification as above. Associated diffuse
narrowing of right middle cerebral territory vessels as compared with the left.
3. � Stenosis of the origin of the left internal carotid artery of approximately 72% secondary to calcific plaque.
4. � Diffuse narrow caliber of left posterior cerebral artery as compared with the right.
CT Head without contrast 09-25-2023: No acute intracranial abnormality.
CXR 09-24-2023: Right upper lobe pneumonia
CXR 09-25-2023:
Vague right upper lobe opacity which could represent pneumonia, slightly improved
New left basilar opacity which could represent subsegmental atelectasis and/or pneumonia. Cannot exclude small left pleural effusion.
CXR 09-26-2023:
Persistent vague opacity in the right upper to midlung with prominence of the right hilar shadow. Findings most likely represent pneumonia and/or atelectasis.
Confluent increased opacity of the left lower hemithorax, particularly medially with loss of definition of the left hemidiaphragm, stable appearance from recent examination of September 25, 2023.
CXR 09-28-2023: Persistent increased opacity in the left lung base, atelectasis versus pneumonia. Minimal increase below the minor fissure in the right middle lobe. Decreased opacity in the right upper lung zone.
Outpatient [facility] Data:
PFT:
������ [place] 04/30/23: FVC 1.59/62%, FEV1 1/52%, ratio 63%, no significant BD response. Moderate obstruction and suggestive of mild restrictive pattern.
�������PFT 03/24/2015: FVC 1.79/60%, FEV1 1.21/54%, ratio 68%, no significant BD response, TLC 3.6/76%, DLCO 10.38/49%, DLCO/VA 3.21/72%. Moderate obstruction. Mild restriction. Moderately reduced diffusing capacity, improved with alveolar adjustment.
6 MWT:
������ 6MWT 04/30/23: At rest, O2 98% on room air, heart rate 85. With ambulation, O2 remained between 98 to 100% on room air, max heart rate 106. 0/10 on dyspnea scale. Ambulated 750 feet.
RADIOGRAPHIC STUDIES:
������ CT chest PE study 03/30/2023: No PE. Mild paraseptal emphysema in both lung apices. Small groundglass opacities in the right upper lobe which are nonspecific but could reflect a mild pneumonitis or potentially a mild viral pneumonia. Bilateral
lower lobe peribronchial thickening with mild mucous plugging in the right lower lobe.
�������CXR 03/30/23: NAD
�������CXR 10/21/2022: No acute disease
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
CARDIAC STUDIES:
������ Echo 03/30/2023: Mild concentric LVH. EF 54%. Mild MR. Mild .
LABS:
������ 04/02/2023: Hemoglobin 14.1
�������04/01/2023: Sputum positive for Pseudomonas aeruginoas
�������03/30/2023: proBNP 2039.
Subjective Data
-
Date of Service:
Date of Service: September 29, 2023
Chief Complaint: Pulmonary Follow Up
Subjective:
Patient seen and evaluated today at bedside. Tried BiPAP last night but did not tolerate it and it was removed. She is set in her mind about leaving against medical advice. Discussed with her risks of leaving including . She does not care.
Patient ended up leaving AMA. She is on 1 L/min nasal cannula. SpO2 97%.
Review of Systems
General: Other (Negative less mentioned above)
Objective Data
Data Reviewed
Vital Signs / I&O / Oxygen:
Vital Signs
Temp Pulse Resp BP Pulse Ox
97.5 F 84 18 175/86 92
09/29/23 07:00 09/29/23 09:02 09/29/23 08:10 09/29/23 09:02 09/29/23 11:38
Intake and Output
09/28/23 09/29/23 09/30/23
06:59 06:59 06:59
Intake Total 820 / 820 520 / 520
Output Total 600 / 600
Balance 220 / 220 520 / 520
SaO2 92
Nasal Cannula flow liters per 1
minute
Physical Exam
General: Comfortable, Other (NAD) and Other (thin appearing)
HEENT: Normocephalic, Anicteric and Moist Mucous Membranes
Cardiovascular: S1-S2
Respiratory: Clear, Wheeze (n), Crackles (n) and Non-Labored Respirations
GI: Soft, Non Distended and Non Tender
Neurology: AO x 3 and No Motor Deficits
Skin: Warm, Dry and Good Color
Labs/Micro/Reports
Lab Data
09/29/23 05:16
09/29/23 05:16
Microbiology
09/25/23 14:14 Blood/Venous Blood Culture - Preliminary
No Growth in 72 hours- Final report to follow
--- NOTE | 2023-09-29 10:50 | CM ---
Patient signed out AMA before CM was able to see them
--- NOTE | 2023-09-29 11:09 | SUR.OPER ---
pt signed AMA release at 0900 understanding increased Fall risk d/t cachexia with weakness, hypoxia and aspiration risk, medical staff recommends SNF for rehab or at least O2 weaned. Also it is very unclear who will be staying or assisting her. she
lives alone in 2 story bathroom upstairs. She stated she has a commode downstairs and she will use rolling walker. She also stated she wants Nicotine patch and would like to quit smoking. Friend p/u.
--- NOTE | 2023-10-01 16:12 | W.PN.UPDATE ---
Addendum entered and electronically signed by TIERA Reeves 10/01/23 17:03:
Additionally, strongly encouraged patient to call her PCP and dimethylaniline sulfator operator CRUZ to establish outpatient appointment [facility] for continued management of COPD and dysphagia.
Original Note:
Update Note
Progress Note Update
Patient signed out AMA over the weekend, call today to check in on patient. Patient denies headache, reports tolerating p.o. diet and states she has had no difficulty ambulating around her home. Educated patient on need to continue dual
antiplatelet therapy given suspected stroke while she was in the hospital. I called Plavix 75 mg PO daily to her pharmacy and provided explicit instructions that she is to decrease her dose of aspirin to 81 mg p.o. daily while on Plavix. She
verbalized understanding of all instructions. I then reiterated the importance that she follow-up with neurology and provided her the information for scheduled follow-up visit with our surgical team.
--- NOTE | 2023-10-01 16:16 | W.DS.TRANS ---
DC Summary - Urology Nurse
-
Discharge Instructions:
Discharge Diagnosis/Procedures Left carotid endarterectomy
Driving Restrictions Not until seen by your Dr
Bathing Restrictions OK to Shower
Instructions:
Stand-Alone Forms:
Changes to Home Medications: Yes
Discharge Medications:
DC Medications w/original date entered in Telepo
albuterol sulfate 90 mcg/actuation aerosol inhaler 2 puff inhalation R Q4 PRN sob/wheezing 03/30/23
aspirin 325 mg tablet 325 mg PO HS Blood Clot Prevention/Tx 03/30/23
losartan 50 mg tablet 50 mg PO HS Blood Pressure 03/30/23
pravastatin 80 mg tablet 80 mg PO HS High Cholesterol 03/30/23
cholecalciferol (vitamin D3) 25 mcg (1,000 unit) tablet (Vitamin D3) 1,000 mcg PO WEEKLY Supplement 09/14/23
budesonide 160 mcg-glycopyr 9 mcg-formot 4.8 mcg/actuation HFA inhaler (Breztri Aerosphere) 2 inh inhalation BID Lung/Breathing Issues 09/24/23
naproxen 500 mg tablet 500 mg PO BID PRN pain general 09/24/23
omeprazole 40 mg capsule,delayed release 40 mg PO DAILY gerd 09/24/23
Home Medication Changes
Added plavix 75mg PO daily (for total of 21 days)
Decreased aspirin to 81 mg p.o. daily while patient is taking Plavix then she will resume aspirin 325 mg p.o. daily
Pending Results: No
--- NOTE | 2023-10-01 16:17 | W.DCSUMMARY ---
Discharge Summary
Discharge Data
Date of Admission: 09/24/23
Date of Discharge: 09/29/23
-
Pending Results: No
Hospital Course
Attending: Uriel Sotomayor III, MD
Consultants: Pulmonary medicine, Neurology
Procedure with date: LEFT carotid endarterectomy with patch angioplasty using bovine pericardium, 09/24/[address] Uriel Sotomayor III, MD
History of present illness: The patient is an 77 -year-old female with multiple medical conditions including: carotid stenosis, hyperlipidemia, chronic airway obstruction, sleep apnea, PAD, anxiety, basal cell cancer, hypertension, COPD, and tobacco
abuse. Patient presented on 09/24/2023 for scheduled procedure with Dr. Uriel Sotomayor III.
Hospital Course: Briefly, the patient underwent scheduled left carotid endarterectomy without complications, and recovered in PACU. Following recovery phase one and two patient was transferred to intensive care unit per protocol for continued
hemodynamic monitoring. Warehouse Production Worker consulted to aid in medical management from a critical care perspective. POD #1 (09/25/2023) During morning rounds patient neurologically intact and face symmetrical. Surgical left neck incision clean, dry, and
intact with suture line well approximated and soft. No evidence of hematoma. Arterial line and IV fluids discontinued. Patient requiring supplemental oxygen via nasal cannula, chest x-ray obtained showing left basilar opacity. Warehouse Production Worker initiated
antibiotics out of precaution for possible pneumonia, however likely atelectasis. Late morning patient noted to have left upper extremity weakness per nursing staff, stroke alert initiated and neurology consulted. No acute pathology seen on CTA
head/neck or CT head without contrast. Neurology concern for right MCA acute ischemic stroke, dual antiplatelet therapy initiated per stroke protocol. POD #2 (09/26/2023) Speech therapy evaluation indicating high risk for aspiration and
recommendation of n.p.o. pending video swallow evaluation. Pulmonology recommending bronchoscopy, however patient refused procedure. All medications switched from p.o. to IV, pending results of video swallow which will be done following day. Given
high supplemental oxygen demands via nasal cannula patient was unable to participate with physical therapy on this day. POD #3 (09/26/2022) Patient underwent the video swallow evaluation with recommendation of crushing all medications in pur�e, and
proceeding with p.o. diet of L4 pur�e, L0 thin liquids via cup with strategies of head turn to the left and multiple swallows with intermittent cough and reswallow. Patient is determined to be at moderate to severe pharyngeal dysphagia, and was
educated on chronic risk for aspiration and elevated risk for complications from aspiration if continues to progress with p.o. diet. Antibiotics continued by pulmonary team, additionally patient started on BuSpar for anxiety. Patient participated
with physical therapy who recommends [facility] facility versus rehab for disposition following this admission. Continues to refuse bronchoscopy offered by pulmonary. POD#4 (09/28/2023) Patient remains on 8 L of supplemental oxygen via nasal
cannula continue to wean as tolerated. Steroids via IV for COPD exacerbation with wean initiated on this day. Patient continues to intermittently comply with medical advice, she vocalizes desire to go home, regardless of medical advice for
discharge to rehab and intermittently vocalizes consideration to sign out against medical advice. Aspiration precautions continue. Continue to attempt weaning oxygen as tolerated, and order for 6 minute walk test in place. Referral to [facility]
placed. Patient refusing chest vest therapy and ordered BIPAP. POD# 4 (09/29/23) Patient continues to have significant decrease in pulse oximetry off supplemental oxygen, additionally remains with poor PO intake. Vascular surgeon Dr. Ibrahim and
payroll bookkeeper Dr. Bolton provided extensive education on need to remain in hospital and strongly encouraged patient to not sign out AMA. Despite extensive education patient signed out against medical advice.
Discharge Plan
-
Patient Disposition: Against Medical Advice
Discharge Diagnosis/Procedures: Left carotid endarterectomy
Condition: Fair
Driving Restrictions: Not until seen by your Dr
Bathing Restrictions: OK to Shower
Referrals:
Joycelyn Johnson CRNP [Non-Admitting Privileges] - in one to two weeks
Leonie Lugo CRNP [Family Provider] -
Prescriptions:
No Action
losartan 50 mg tablet
50 mg PO HS
pravastatin 80 mg tablet
80 mg PO HS
albuterol sulfate 90 mcg/actuation HFA aerosol inhaler
2 puff INHALATION R Q4 PRN (Reason: sob/wheezing)
Patient Comments:
pt states about three weeks ago
aspirin 325 mg Tablet
325 mg PO HS
cholecalciferol (vitamin D3) [Vitamin D3] 25 mcg (1,000 unit) Tablet
1,000 mcg PO WEEKLY
Patient Comments:
only on saturdays
omeprazole 40 mg Capsule,Delayed Release(Dr/Ec)
40 mg PO DAILY
naproxen 500 mg Tablet
500 mg PO BID PRN (Reason: pain general )
Patient Comments:
approx month ago
Breztri Aerosphere 160-9-4.8 mcg/actuation Hfa Aerosol Inhaler
2 inh INHALATION BID
Discharge Date and Time
Discharge Date/Time: 09/29/23 10:21
Print Language: YI
== END 2023-09-29 10:21 | disposition left against medical advice (07) | DRG 37 ==
LOC: 2 SOUTH 07:04
PROVIDERS: Nurse Practitioner; Nurse Practitioner Acute Care; Nurse Practitioner Family; Nurse Practitioner Primary Care; ADMITTING PHYSICIAN Surgery Vascular Surgery; CONSULT PHYSICIAN Internal Medicine Critical Care Medicine; CONSULT PHYSICIAN Psychiatry & Neurology Neurology; FAMILY PHYSICIAN Nurse Practitioner
PROC: 03CJ0ZZ Extirpation of Matter from Left Common Carotid Artery, Open Approach (ICD-10-PCS; 2023-09-24)
PROC: 03UJ0KZ Supplement Left Common Carotid Artery with Nonautologous Tissue Substitute, Open Approach (ICD-10-PCS; 2023-09-24)
PROC: 5A0935A Assistance with Respiratory Ventilation, Less than 24 Consecutive Hours, High Flow/Velocity Cannula (ICD-10-PCS; 2023-09-26)
PROC: 5A09357 Assistance with Respiratory Ventilation, Less than 24 Consecutive Hours, Continuous Positive Airway Pressure (ICD-10-PCS; 2023-09-27)
DX: I65.22 Occlusion and stenosis of left carotid artery (principal); I63.511 Cerebral infarction due to unspecified occlusion or stenosis of right middle cerebral artery; J18.9 Pneumonia, unspecified organism; J96.01 Acute respiratory failure with hypoxia; E87.1 Hypo-osmolality and hyponatremia; Z68.1 Body mass index [BMI] 19.9 or less, adult; I97.821 Postprocedural cerebrovascular infarction following other surgery; F17.200 Nicotine dependence, unspecified, uncomplicated; G47.33 Obstructive sleep apnea (adult) (pediatric); I73.9 Peripheral vascular disease, unspecified; D72.829 Elevated white blood cell count, unspecified; R63.6 Underweight; E78.00 Pure hypercholesterolemia, unspecified; I10 Essential (primary) hypertension; J43.8 Other emphysema; E55.9 Vitamin D deficiency, unspecified; F41.1 Generalized anxiety disorder; Z80.8 Family history of malignant neoplasm of other organs or systems; Z88.2 Allergy status to sulfonamides; Z80.42 Family history of malignant neoplasm of prostate; Z88.1 Allergy status to other antibiotic agents; Z88.0 Allergy status to penicillin; Z88.7 Allergy status to serum and vaccine; Z88.8 Allergy status to other drugs, medicaments and biological substances; Z85.828 Personal history of other malignant neoplasm of skin; Y83.8 Other surgical procedures as the cause of abnormal reaction of the patient, or of later complication, without mention of misadventure at the time of the procedure; Y92.230 Patient room in hospital as the place of occurrence of the external cause; Z66 Do not resuscitate
CPT/HCPCS: 88304; 88311; 35301; 36415; 70450; 70496; 70498; 71045; 74230; 80048; 80053; 80061; 82248; 82330; 82805; 83735; 84100; 84132; 84145; 84302; 85025; 85027; 85610; 85730; 87040; 87205; 87449; 87899; 92526; 92610; 92611; 93005; 94640; 94667; 94669; 97116; 97163; 97167; 97530; 97535; Q9967

== ENCOUNTER 2023-10-13 14:59 | Observation (INO) | payer MEDICARE, OTHER, SELFPAY ==
[2023-10-13] VITALS (8 sets, daily range): BP systolic 122–145; BP diastolic 46–62; BMI 15.7
[2023-10-13 11:52] LABS: Glucose - Point of Care 134 mg/dl (70-99)
[2023-10-13 12:14] LABS: Hematocrit 32.3 % (37.0-47.0); Hemoglobin 10.7 g/dL (12.0-16.0); Mean Corp Hgb Conc. 33.1 g/dL (33.0-37.0); Mean Corpuscular Hgb 30.2 pg (27.0-31.0); Mean Corpuscular Volume 91.2 fL (81.0-99.0); Mean Platelet Volume 10.4 fL (7.4-10.4); Platelet Count 255 10^3/uL (130-400); Red Blood Cell Count 3.54 10^6/uL (4.20-5.40); Red Cell Dist. Width 14.3 % (11.5-14.5); White Blood Cell Count 11.1 10^3/uL (4.8-10.8)
--- NOTE | 2023-10-13 12:14 | ED.CVA ---
History of Present Illness
General
Chief Complaint: CVA/TIA Symptoms
Source: patient
Exam Limitations: none
Time Seen by Provider: 10/13/23 11:51
Nursing documentation reviewed up to this point in time: agreed with
Onset of Stroke Symptoms
Onset of symptoms known: Yes
Date of onset of symptoms: 10/13/23
Travel History
Have you had any contact with someone who has COVID-19?: No
Do you have any symptoms of coronavirus? Fever > 100 degrees, chills, cough, shortness of breath, sore throat, loss of taste or smell, muscle aches, or headache?: No
History of Present Illness
History of Present Illness:
Patient status post left carotid endarterectomy 2 weeks ago, presents to ED secondary to intermittent involuntary tremor and weakness of her left arm and leg over the past 2 weeks, including this morning, which caused her to slid down off the chair.
Denies headache. Denies any injuries from the fall. Denies difficulty with speech or swallowing. Denies blurred vision. Denies dizziness. Denies weakness or numbness at the time examination. Denies recent change in medications or diet.
Past History
Past History
ED Past Medical History: Cancer (skin), COPD, HTN, Hypercholesterolemia, Psychiatric (Generalized anxiety disorder) and Other (Peripheral vascular disease, Obstructive sleep apnea, allergic rhinitis)
ED Past Surgical History: Cholecystectomy and Other (Right Iliac Arterial stent in the lower extremity, Left CEA , Ulnar nerve transposition, right iliac artery stent 2010)
Social History
Tobacco: Smoker
Alcohol: None
Drug: None
Personal:
Living: with family
Family History
Family History: Other (reviewed and non-contributory)
Review of Systems
Review of Systems
Allergies reviewed?: Yes
All Other Systems: ROS reviewed and negative except as documented in HPI and ROS
Constitutional: Reports no symptoms
EENT: Reports no symptoms
Respiratory: Reports no symptoms
Cardiac: Reports no symptoms
ABD/GI: Reports no symptoms
Musculoskeletal: Reports no symptoms
Skin: Reports no symptoms
Neurological: Reports weakness and other (Involuntary tremor); Denies dizzy, headache or numbness
Phy Exam
Physical Exam
Physical Exam:
Physical Exam
General: no apparent distress, not acutely ill. afebrile.
Head: nc/at. eomi
Neck: supple. no meningeal signs.
Heart: s1/s2 regular rate and rhythm, no murmur. equal radial pulses.
Lungs: mild respiratory distress. rhonchi bilaterally
Abdomen: normal bowel sounds. not tender.
Neuro: alert and oriented. no focal sensory/motor deficits. normal speech.
Skin: no rash
Psychiatric: well kept. interactive and cooperative
Extremities: no edema. no calf tenderness.
Course
Orders/Labs/Results
Orders:
Orders
10/13/23 11:57
Electrocardiogram (*1) Urgent
Reason for Study: TIA/Stroke
CT Head W/o Iv Contrast Urgent
Comment:
Reason For Exam: left sided tremor
EKG- Treatment ONCE
10/13/23 12:07
Complete Blood Count/No Diff Urgent
Comprehensive Metabolic Panel Urgent
Magnesium Urgent
TSH Urgent
10/13/23 12:13
CR Chest - 2 Views Urgent
Comment:
Reason For Exam: cough/hypoxia
10/13/23 13:33
Vascular Surgery Consult Routine
Consulting Provider: Bell Kyle
Was physician already notified: Yes
Reason for consult: Suspect right carotid source of TIA
10/13/23 13:34
MR Brain Without Contrast Routine
Comment:
Reason For Exam: Eval for right MCA strokes
Recent pill cam endoscopy?: No
Lorazepam [Ativan] 1 mg IV ONCE PRN
NIH Stroke Scale As Directed
Directions: Per protocol
Neurological Checks As Directed
Frequency: Per unit guidelines
10/13/23 13:52
0.9% Sodium Chloride [Nss (Preservative Free)] 0.5 ml IV ONCE PRN
10/13/23 14:00
Aspirin Low Dose EC [Aspir Low (Enteric Coated)] 81 mg PO DAILY
Clopidogrel Bisulfate [Plavix] 75 mg PO DAILY
10/13/23 14:44
Admit/Transfer Patient As Directed
Co-Sign Provider:
Level of Care: Observation services
Assign to:: Telemetry
Physician / Group: Hospitalist
Diagnosis: TIA
Reason for Telemetry: CVA/TIA
Date to Stop Telemetry: 10/16/23
Time to Stop Telemetry: 11:00
10/13/23 14:46
Code Status As Directed
Resuscitation Status: Do not resuscitate
Reached after discussion with pt or family/Healthcare POA: Yes
10/13/23 14:47
DNR Bracelet Application ONCE
10/13/23 15:56
Urinalysis Reflex To Culture Urgent
Date Specimen was Collected: 10/13/23
Time Specimen was Collected: 15:55
10/13/23 16:53
Acetaminophen [Tylenol] 650 mg PO Q4HPRN PRN
Albuterol [ProAIR HFA INHALER] 2 puff INH R Q4HPRN PRN
10/13/23 16:53
Case Management Consult ONCE
Case Management Consult: Discharge Planning
Comment: stroke/tia
DIETARY CONSULT Routine
Reason for Consult: stroke/TIA
Mitering Machine Operator Urgent
Activity As Directed
Activity Level: With Assistance
Patient Education As Directed
Type: Stroke education packet
Comment: provide to patient and family
Pneumatic Compression Sleeves As Directed
Type: Knee high
Swallow Screening CVA/TIA ONLY As Directed
Comment: NPO until swallowing screening completed
If patient FAILS swallow screening:: NPO, Speech Therapy consult, Aspiration Precautions
If patient PASSES swallow screening, diet:: IDDSI 5 Soft & Bite Sized
Above diet order entered?: Yes- passed screening
Vital Signs As Directed
Frequency: Per unit guidelines
Ot Eval And Treat Routine
Pt Eval And Treat Routine
Activity Level: With Assistance
Speech Therapy Eval & Treat Routine
DX Deep Vein Thrombosis Video Routine
10/13/23 18:00
Enoxaparin Sodium [Lovenox] 30 mg SC QPM
10/13/23 20:00
lodygvssob-yvdpmwpm-jbowhpspul [Breztri Aerosphere] 2 inh INH R BID
10/13/23 22:00
Cholecalciferol (Vitamin D3) [VITAMIN D3 (cholecalciferol)] 25 mcg PO SA@2200
Losartan [Cozaar] 50 mg PO HS
10/14/23 06:00
Cardiovascular Evaluation IN AM
VerifyNow Aspirin IN AM
Pt on daily regimen OR been given initial dose of aspirin?: Yes
10/14/23 08:00
Nicotine [Nicoderm Transdermal] 14 mg TRANSDERM DAILY
Pantoprazole [Protonix] 40 mg PO DAILY
10/16/23 11:00
DC Protocol for Telemetry ONCE
Abnormal Lab Results
10/13/23 10/13/23
11:51 12:07
WBC 11.1 H 10^3/uL
(4.8-10.8)
RBC 3.54 L 10^6/uL
(4.20-5.40)
Hgb 10.7 L g/dL
(12.0-16.0)
Hct 32.3 L %
(37.0-47.0)
BUN 21 H mg/dl
(7-17)
Creatinine 0.4 L mg/dL
(0.6-1.0)
Glucose 106 H mg/dl
(70-99)
Total Protein 5.9 L g/dl
(6.3-8.2)
POC Glucose 134 H mg/dl
(70-99)
10/13/23 12:07
10/13/23 12:07
Vital Signs
Initial and Last Documented VS:
Initial Vital Signs
Temp Pulse Resp BP Pulse Ox
97.8 F 89 18 145/53 94
10/13/23 11:48 10/13/23 11:48 10/13/23 11:48 10/13/23 11:48 10/13/23 11:48
Last Documented Vital Signs
Temp Pulse Resp BP Pulse Ox
98.3 F 73 16 138/55 92
10/13/23 17:10 10/13/23 19:18 10/13/23 19:18 10/13/23 17:10 10/13/23 19:18
MDM/Problems Addressed
MDM/Problems Addressed:
CT head: NAD.
Pt evaluated in ED by (neurology) - recommends admission for further evaluation and treatment. Continue asa/plavix for now
*EKG
Interpreted by ED Provider?: Yes
EKG Intrepretation Date: 10/13/23
Heart Rate: 80
Rate: normal
Rhythm: sinus and PAC's
Holley: normal axis
*Critical Care Note
Total Time (30-74mins, 75-104mins- exclusive of procedures): Not Applicable
ED Attending Note
-
Portions of this chart may have been created with voice recognition software.� Occasional wrong word or��sound alike� substitutions may have occurred due to the inherent limitations of voice recognition software.
Discharge Plan
Departure
Patient Disposition: Admit
Date of Disposition: 10/13/23
Time of Disposition: 13:44
Presentation/result/management discussed w/ accepting MD/DO: Hospitalist
Discharge Problem:
Brain TIA
Interventions
Interventions:
*Risk Screen - Suicide Last Done: 10/13/23 11:48
*General Assessment Last Done: 10/13/23 11:48
*Neglect/Abuse Screening Last Done: 10/13/23 11:48
ED- Fall Risk Assessment Last Done: 10/13/23 13:15
*ED COVID-19 Vaccine History Last Done: 10/13/23 11:56
*Nursing Disposition Last Done: 10/13/23 16:48
ED- Pulmonary Assessment Last Done: 10/13/23 13:15
ED- Neurological Assessment Last Done: 10/13/23 15:25
ED- Cardiac Assessment Last Done: 10/13/23 13:15
ED Swallowing Screen Last Done: 10/13/23 13:56
Discharge Date and Time
Discharge Date/Time: 10/13/23 16:49
[2023-10-13 12:27] LABS: ALT (SGPT) 13 U/L (0-35); AST (SGOT) 18 U/L (14-36); Albumin 3.6 g/dl (3.5-5.0); Alkaline Phosphatase 94 U/L (38-126); Blood Urea Nitrogen 21 mg/dl (7-17); Calcium 9.1 mg/dl (8.4-10.2); Carbon Dioxide 26 mmol/L (22-30); Chloride 103 mmol/L (98-107); Glucose 106 mg/dl (70-99); Sodium 136 mmol/L (135-145); Total Bilirubin 0.5 mg/dl (0.2-1.3); Total Protein 5.9 g/dl (6.3-8.2); eGFR > 60.00
--- NOTE | 2023-10-13 13:35 | CON.NEURO4 ---
Consultation - Neurology 4
-
CONSULTING PHYSICIAN: Jeff Mohan
REFERRING PHYSICIAN: ER
DICTATED BY: Jeff Mohan
DATE/TIME OF REQUEST: 10/13/23
DATE/TIME OF CONSULTATION: 10/13/23
Reason for Consultation: Right sided arm and leg dancing
History of Present Illness:
Patient is a 77-year-old woman with a past ministry of peripheral arterial disease, hypertension, previous smoking history, recent left carotid endarterectomy on 09/23 who presents to the hospital with involuntary dance like movements that were brief
in the left arm and leg this morning.
Patient had had a hospitalization for planned left carotid endarterectomy which proceeded on 09/23. The next day 09/24 patient described left upper extremity weakness which triggered stroke alert with a CTA of the head and neck. There was high
suspicion for right MCA stroke that had occurred in addition to noting of dysphagia and patient was on DAPT therapy for this. She had refused some diagnostic testing medical care and ended up leaving [facility] on 09/25 and has been at home since then.
She reports that she has been compliant with aspirin and clopidogrel. No bleeding problems.
Reports that for about the past couple of weeks she has noted left arm and leg weakness which have been mild.
She reports that she has had episodes of brief couple seconds long left arm and leg dancing like involuntary movements which occurred this morning and prompted her to come to the ER. She is clear in saying that this movement had happened
previously but is not sure when the last one was, perhaps a couple of weeks ago, but it has happened several times before. Patient does not have any loss of consciousness or obvious warning with these episodes. They seem to happen more with
standing but can also happen when seated at an incline. They involve the left arm and leg as a brief shaking like movement that she cannot control or suppress.
Past Medical History: Carotid stenosis s/p left CEA, sleep apnea, PAD, hypertension, hyperlipidemia, COPD
Surgical History: Left carotid endarterectomy 09/23, ulnar nerve transposition, cholecystectomy, right sided iliac artery stent
Family History: Non-contributory
Social History: Lives alone, has a sister who lives in [place], retired, former smoker quit recently after 30 pack years, no alcohol
Review of Symptoms:
Patient denies any fever, headache, chest pain, shortness of breath, GI or symptoms.
Physical Exam:
Thin appearing elderly woman no acute distress no signs of head or neck trauma eyes are clear oropharynx is clear heart rate regular breathing unlabored no wheezing abdomen soft nontender no lower extremity edema left carotid endarterectomy incision
site is clean dry and intact
Neurologic Examination:
The patient is awake, alert and oriented x 3. She is able to follow commands and answer questions appropriately. There is no aphasia. Mild dysarthria present. On cranial nerve assessment, pupils are 3 mm bilateral, round and reactive to light and
accommodation. Visual barkley are full. Extraocular movements are intact. Facial sensations are intact and bilaterally symmetrical, there is no facial asymmetry. Hearing is intact bilaterally to normal conversation volume. Tongue palate and uvula
are midline. Sternocleidomastoid strengths are full bilaterally. Motor strengths are 5/5 bilateral upper and lower extremities on medical research [place] scale. There is no drift or involuntary movement noted. Deep tendon reflexes are 2+ bilateral
upper and lower extremities and Babinski is absent bilaterally. Intact light touch and symmetric. There was no extinction noted on double simultaneous stimulation. Coordination is intact by finger to nose bilaterally.
Neuro Imaging:
CT head noncontrast unremarkable
Previous CTA of the head and neck with patent left carotid endarterectomy after surgery
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 No intracranial occlusions seen.
Impressions
1. Suspect the patient has a rare form of TIA's (limb shaking TIA) producing brief involuntary movements of left arm and leg secondary to right carotid artery stenosis versus occlusion. Less likely this is seizure given the context of a
contralateral severe carotid stenosis/occlusion, and that she has no prodromal symptoms, aura, or alteration in consciousness, and that they seem to happen more with standing.
2. Patient had had onset of left arm and leg weakness shortly after left-sided endarterectomy that was suspected due to right MCA stroke and left AMA before further workup, she has been compliant with aspirin clopidogrel. She has since has some
mild weakness of left arm and leg as well as dysphagia.
3. Recent left carotid endarterectomy
4. Hypertension
5. COPD
6. Former smoking history
Recommendations:
1. Continue aspirin and clopidogrel
2. Will check MRI brain without contrast
3. May need to repeat CTA of the head and neck but will hold off for now
4. Vascular surgery consultation to assess if there is any possibility for operative management of the right carotid artery
5. If no operative management on the right carotid artery possible then we will need to consider switching her antithrombotic therapy to DOAC for anticoagulation in addition to antiplatelet
6. Goal normotension
7. Neurologic checks and NIH stroke scales
8. Speech therapy evaluation
Will follow
Discussed patient care with: Patient and Dr Martínez
NIH Stroke Score
Subsequent NIH Scale
Date of Subsequent NIH Scale: 10/13/23
Time of Subsequent NIH Scale: 13:49
NIH Stroke Score
Level of Consciousness: 0 - Alert
LOC Questions: 0-Answers both correctly
LOC Commands: 0-Performs both correctly
Best Horizontal Gaze: 0-Normal
Visual Barkley: 0=Normal, no visual loss
Facial Palsy: 0=Normal, symmetrical
Motor - Right Arm: 0=No drift 10 seconds
Motor - Left Arm: 0=No drift 10 seconds
Motor - Right Le-No drift 5 seconds
Motor - Left Le-No drift 5 seconds
Limb Ataxia: 0-Absent
Sensation: 0-Normal
Best Language: 0-No aphasia
Dysarthria: 1-Mild slurring
Extinction and Inattention: 0-No abnormality
Total Score:: 1
Home Medications
-
Home Medications
losartan 50 mg tablet 50 mg PO HS Blood Pressure 03/30/23
pravastatin 80 mg tablet 80 mg PO HS High Cholesterol 03/30/23
cholecalciferol (vitamin D3) 25 mcg (1,000 unit) tablet (Vitamin D3) 1,000 mcg PO SA@2200 Supplement 09/14/23
budesonide 160 mcg-glycopyr 9 mcg-formot 4.8 mcg/actuation HFA inhaler (Breztri Aerosphere) 2 inh inhalation R BID Lung/Breathing Issues 09/24/23
omeprazole 40 mg capsule,delayed release 40 mg PO DAILY gerd 09/24/23
Maalox 1 packet PO TU 10/13/23
albuterol sulfate 90 mcg/actuation aerosol inhaler (ProAir HFA) 2 puff inhalation R Q4HPRN PRN sob/wheezing 10/13/23
aspirin 81 mg tablet,delayed release 81 mg PO DAILY 10/13/23
clopidogrel 75 mg tablet 75 mg PO DAILY 10/13/23
fluticasone propionate 50 mcg/actuation nasal spray,suspension 2 spray intranasal DAILY 10/13/23
nicotine 14 mg/24 hr daily transdermal patch 1 patch transdermal DAILY 10/13/23
Allergies
-
Allergies
Allergy/AdvReac Type Severity Reaction Status Date / Time
amoxicillin Allergy Rash; Verified 10/13/23 11:47
tolerated
ampicillin,
piperacillin
09/25/23
atorvastatin [From Lipitor] Allergy muscle Verified 10/13/23 11:47
cramps
Cephalosporins Allergy Rash Verified 10/13/23 11:47
clarithromycin Allergy Rash Verified 10/13/23 11:47
levofloxacin [From Levaquin] Allergy Unknown Verified 10/13/23 11:47
niacin Allergy Unknown Verified 10/13/23 11:47
pneumococcal vaccine Allergy Swelling Verified 10/13/23 11:47
Sulfa (Sulfonamide Allergy Rash Verified 10/13/23 11:47
Antibiotics)
sulfisoxazole Allergy Rash Verified 10/13/23 11:47
potasium clavunate Allergy Unknown Uncoded 09/24/23 07:50
Vital Signs / Labs
-
Vital Signs and Labs:
Temp Pulse Resp BP Pulse Ox
97.8 F 82 16 122/57 92
10/13/23 11:48 10/13/23 12:15 10/13/23 12:15 10/13/23 12:00 10/13/23 12:15
10/13/23 12:07
10/13/23 12:07
10/13/23 10/13/23
11:51 12:07
WBC 11.1 H
RBC 3.54 L
Hgb 10.7 L
Hct 32.3 L
BUN 21 H
Creatinine 0.4 L
Glucose 106 H
Total Protein 5.9 L
POC Glucose 134 H
--- NOTE | 2023-10-13 14:33 | HPS.HSE ---
Family Physician
-
Family Physician: TIERA Arevalo
Chief Complaint
-
Left sided weakness and tremors
History of Present Illness
This is a 77 -year-old female with h/o carotid stenosis s/p L. CEA September 25, hyperlipidemia, chronic airway obstruction, sleep apnea, PAD, anxiety, basal cell cancer, hypertension, COPD, and tobacco abuse coming in with left sided tremors, weakness
and fall.
Patient is status post left carotid endarterectomy about 2 and half weeks ago. Hospital course was complicated with concern for left-sided MCA patient was started on dual antiplatelet therapy. She had continued dysphagia and is on a regular diet.
She was recommended to go to a custodial facility but patient decided to go home instead. She been doing at home up until the day of admission when she reported that while walking she suddenly felt shaking/tremors in her right upper and lower
extremity. She was walking with a rollator at that time but could not sustain her balance and fell. She denied hitting her head. She denied any loss of consciousness. She states that her is now back to baseline. She denied having any
palpitations, chest pain, or shortness of breath. She denies any nausea vomiting or diaphoresis. She reports that she has had urinary frequency going to the bathroom about every 3 hours since discharge from the hospital. She denies any dysuria.
She denies any hematuria. Patient denies any melena or hematochezia. She denies having lightheadedness or dizziness. She reports that she is continued on his and has had reasonable p.o. intake. Stop she has chronic cough that is nonproductive.
On arrival in the emergency department the patient was stable afebrile with a blood pressure 140/52, pulse of 81 and oxygen saturation of 93% on room air. ECG showed normal sinus rhythm with PACs and T wave flattening V4 through V6. Chest x-ray
shows no acute infiltrates. CT of the head shows no acute intracranial process. Chemistries was within normal limits. CBC unchanged from prior without any acute abnormalities. Patient was seen by neurology who recommended inpatient admission for
CVA/TIA.
Medical History
Past Medical History
Past Medical History: Reports COPD, Hypercholesterolemia and Valvular Disease
Past Surgical History: Reports Other (Left CEA)
Social History
Tobacco: Smoker
Alcohol: None
Drug: None
Personal: Single
Living: Alone
Employment: Retired
Family History
Family History: Not pertinent
Allergies / Home Medications
Allergies reflects when Allergies were last updated in [facility].
Home Medications with original date entered in [facility]
Allergy/Medication List:
Allergies
Allergy/AdvReac Type Severity Reaction Status Date / Time
amoxicillin Allergy Rash; Verified 10/13/23 11:47
tolerated
ampicillin,
piperacillin
09/25/23
atorvastatin [From Lipitor] Allergy muscle Verified 10/13/23 11:47
cramps
Cephalosporins Allergy Rash Verified 10/13/23 11:47
clarithromycin Allergy Rash Verified 10/13/23 11:47
levofloxacin [From Levaquin] Allergy Unknown Verified 10/13/23 11:47
niacin Allergy Unknown Verified 10/13/23 11:47
pneumococcal vaccine Allergy Swelling Verified 10/13/23 11:47
Sulfa (Sulfonamide Allergy Rash Verified 10/13/23 11:47
Antibiotics)
sulfisoxazole Allergy Rash Verified 10/13/23 11:47
potasium clavunate Allergy Unknown Uncoded 09/24/23 07:50
Home Medications
losartan 50 mg tablet 50 mg PO HS Blood Pressure 03/30/23
pravastatin 80 mg tablet 80 mg PO HS High Cholesterol 03/30/23
cholecalciferol (vitamin D3) 25 mcg (1,000 unit) tablet (Vitamin D3) 1,000 mcg PO SA@2200 Supplement 09/14/23
budesonide 160 mcg-glycopyr 9 mcg-formot 4.8 mcg/actuation HFA inhaler (Breztri Aerosphere) 2 inh inhalation R BID Lung/Breathing Issues 09/24/23
omeprazole 40 mg capsule,delayed release 40 mg PO DAILY gerd 09/24/23
Maalox 1 packet PO TU 10/13/23
albuterol sulfate 90 mcg/actuation aerosol inhaler (ProAir HFA) 2 puff inhalation R Q4HPRN PRN sob/wheezing 10/13/23
aspirin 81 mg tablet,delayed release 81 mg PO DAILY 10/13/23
clopidogrel 75 mg tablet 75 mg PO DAILY 10/13/23
fluticasone propionate 50 mcg/actuation nasal spray,suspension 2 spray intranasal DAILY 10/13/23
nicotine 14 mg/24 hr daily transdermal patch 1 patch transdermal DAILY 10/13/23
Review of Systems
-
History Source: Patient
Constitutional: Reports No Symptoms
EENT: Reports No Symptoms
Respiratory: Reports No Symptoms
Cardiac: Reports No Symptoms
Abdomen/GI: Reports No Symptoms
: Reports Frequency
Musculoskeletal: Reports No Symptoms
Skin: Reports No Symptoms
Neurological: Reports Weakness
Endocrine: Reports No Symptoms
Hematologic/Lymphatic: Reports No Symptoms
Psych: Reports No Symptoms
Physical Exam
Vital Signs
Vital Signs
Temp Pulse Resp BP Pulse Ox
97.8 F 84 16 140/52 92
10/13/23 11:48 10/13/23 14:00 10/13/23 14:00 10/13/23 14:00 10/13/23 12:15
Physical Exam
General: No Apparent Distress and Comfortable
HEENT: NormoCephalic, Anicteric, Moist mucous membranes, PERRLA and Neck Nontender
Respiratory: Clear
Cardiac: S1/S2, Regular Rhythm and Murmur
Breast: Deferred by me
GI: Soft, Non Tender, Non Distended and Normal Bowel Sounds
Rectal: Deferred by Provider
Genito-urinary: Deferred by me
Musculoskeletal: No Clubbing, No Cyanosis and No Edema
Skin: Warm
Neuro: AO x 3
Hematologic/Lymphatic: No Lymphadenopathy
Psych: Calm
Laboratory Results
-
10/13/23 12:07
10/13/23 12:07
Laboratory Results
Total Bilirubin 0.5 mg/dl (0.2-1.3) 10/13/23 12:07
AST 18 U/L (14-36) 10/13/23 12:07
ALT 13 U/L (0-35) 10/13/23 12:07
Alkaline Phosphatase 94 U/L (38-126) 10/13/23 12:07
Data Reviewed
-
Diagnostic Radiology: Image Personally Visualized and interpreted and Report Reviewed by me
CT Scan: Report Reviewed by me
Medical Tests (Nuc Med, Echo, EKG etc): Image Personally Visualized and interpreted
Lab Data: Labs Reviewed by me
Old Records: Reviewed
Impression/Plan
-
IMPRESSION:
77-year-old with a history of left carotid stenosis status post left carotid endarterectomy, possible history of TIA, GERD, hyperlipidemia, COPD, tobacco dependence with approximately 2-week status post the carotid endarterectomy coming in with
episode of left-sided weakness in the upper and lower extremity as well as tremors. Normal exam the patient is NIHSS equals 0. She appears to have recovered back to baseline with symptoms lasting for minutes to hours. The CT of the head shows no
acute intracranial process. There is concern for a TIA or a small evolving CVA.
PLAN:
1. TIA/CVA - High risk patient already on DAPT. Seen by neuro
- admit to telemetry
- continue DAPT, statin
- neurochecks q 6 hours
- MRI/MRA
- prior ecg with ?afib. Meets criteria for AC if afib confirmed as she may have paroxymal afib. Monitor on telemetry.
- passed swallow and can tolerate soft bite sided diet with thin liquids
- neurology consulted and notified, vascular surgery consulted per neurology.
2. COPD - Stable
- continue ICS/laba/glycopyrolate per home
- prn albuterol inh
- nicotine patch
3. HTN
- continue losartan
4. Urinary frequency - possibly uti
- urinalysis with reflex to culture pending
DVT PPX - lovenox sq
DNR
[2023-10-13] MEDS: PLAVIX 75 MG PO (14:35)
[2023-10-13 16:03] LABS: Urine Albumin Negative (Neg - Trace); Urine Bilirubin 1+ (Negative); Urine Character Clear (Clear); Urine Color Yellow; Urine Glucose Negative (Negative); Urine Ketone Negative (Negative); Urine Leukocyte Negative (Negative); Urine Nitrite Negative (Negative); Urine Occult Blood Negative (Negative); Urine Specific Gravity 1.015 (<1.030); Urine Urobilinogen 3+ (Neg - 1+)
[2023-10-13] MEDS: LOVENOX 30 MG SC (18:32)
[2023-10-13] MEDS: PRAVACHOL 80 MG PO (18:32)
[2023-10-13] MEDS: SYMBICORT 160/4.5 MCG INHALER 2 PUFF INH (19:13)
[2023-10-13] MEDS: TYLENOL 650 MG PO (20:01)
--- NOTE | 2023-10-13 20:45 | PTCARENOTE ---
Addendum entered by Norma Mullins 10/14/23 04:35:
0400: NIH repeated- pt scored 1 for dysarthria.
Original Note:
Patient is having 9/10 headache tylenol given per order. When completing NIH while reading the sentences pt does not see the word radio- skipped it after multiple attempts. Pt also with decreased movement to the L eye when tracking my finger to the
left. When touching lower and upper extremities at the same time patient only feels being touched in R- NIH score 3. BP is 138/[address] Mohan made aware, no new orders at this time, will continue to monitor and assess pt.
--- NOTE | 2023-10-13 23:00 | PTCARENOTE ---
Attempting to take pts BP in R arm 61/36. Attempted manual BP in R arm- unable to assess, as no sounds heard. L arm BP 110/54. Care team aware to only take BPs in L arm. House BEAN SNIPPER aware.
[2023-10-14 03:50] VITALS: BP 139/84
--- NOTE | 2023-10-14 04:32 | PTCARENOTE ---
Addendum entered by Norma Mullins 10/14/23 05:00:
Treatment given, pox 94 2 L O2. Pt stating less anxious. Pt with moist prod cough bring up yellow/white sputum. With wet voice quality with PO. House TILTROTOR CREW CHIEF notified.
Original Note:
Pt c/o anxiety and SOB- stating 'this normally happens to me in AM' pulse ox 88% RA, pt currently refusing o2, pt requesting 'breathing treatment' Respiratory notified.
[2023-10-14] MEDS: ProAIR HFA INHALER 2 PUFF INH (04:36)
[2023-10-14] MEDS: SYMBICORT 160/4.5 MCG INHALER 2 PUFF INH (07:18)
[2023-10-14] MEDS: SPIRIVA RESPIMAT 2.5 MCG 2 PUFF INH (07:18)
[2023-10-14 07:22] VITALS: BP 152/68
[2023-10-14 07:22] LABS: HDL Cholesterol 45 mg/dl; LDL Cholesterol, Calculated 46 mg/dl; Total Cholesterol 108 mg/dl (50-199); Triglyceride 88 mg/dl (10-149); Very Low Density Lipoprotein 17 mg/dl (0-30)
--- NOTE | 2023-10-14 07:54 | W.PN.NEURO.1 ---
Addendum entered and electronically signed by Caleb Mohan MD 10/14/23 15:39:
Discussed with Dr Lazcano
Patient and family feel that their feeling would be to pursue hospice at this time living with her family in [place].
I feel this is a reasonable course given significant COPD as well as recurrent TIA's and ischemic stroke from totally occluded right carotid artery without ability for surgical intervention. Severe vascular disease with cervical artery disease and
peripheral arterial disease.
Increasing medical regimen of asprin and Eliquis would be my next step for stroke prevention if we were to pursue maximum medical therapy but this would come with increased bleeding risks that may affect quality of life for the future.
If patient and family want to pursue minimizing of medications and take medications only for comfort (stopping antithrombotics) then patient is at high risk for stroke that could foreseeably lead to her dying in the next 12 months.
Original Note:
Today's Communication / Plan
-
-Continue aspirin/clopidogrel for now
-Neurologic checks and NIH scales
-Check MRI of the brain without contrast
-Not recommending repeating any CTA or vessel imaging
-Check EEG tomorrow
-Check TTE
-Monitor on cardiac telemetry
-Appreciate vascular surgery input
-Continue statin
Will follow
Neuro Assessment/Plan
Assessment
1. Suspect the patient has a rare form of TIA's (limb shaking TIA) producing brief involuntary movements of left arm and leg secondary to right carotid artery stenosis versus occlusion. Could also be due to hypoperfusion given the right carotid
occlusion. Less likely this is seizure given the context of a contralateral severe carotid stenosis/occlusion, and that she has no prodromal symptoms, aura, or alteration in consciousness, and that they seem to happen more with standing.
2. Patient had had onset of left arm and leg weakness shortly after left-sided endarterectomy that was suspected due to right MCA stroke and left AMA before further workup, she has been compliant with aspirin clopidogrel. She has since has some
mild weakness of left arm and leg as well as dysphagia.
3. Recent left carotid endarterectomy
4. Hypertension
5. COPD
6. Former smoking history
Seen by vascular, no operation possible given total occlusion of the right ICA
Subjective/Objective
Subjective Data
Date of Service: October 14, 2023
No acute events, no instances of left arm or hand 'dancing' or weakness, mild headache present
Objective Data
Vital Signs
Temp Pulse Resp BP Pulse Ox
97.7 F 95 18 152/68 92
10/14/23 07:22 10/14/23 07:24 10/14/23 07:24 10/14/23 07:22 10/14/23 07:24
Lab Results
10/13/23 12:07
10/13/23 12:07
Sodium 136 mmol/L (135-145) 10/13/23 12:07
Potassium 4.0 mmol/L (3.5-5.1) 10/13/23 12:07
BUN 21 mg/dl (7-17) H 10/13/23 12:07
Glucose 106 mg/dl (70-99) H 10/13/23 12:07
Calcium 9.1 mg/dl (8.4-10.2) 10/13/23 12:07
LDL Cholesterol, Calc 46 mg/dl 10/14/23 06:46
Patient Allergies
amoxicillin Allergy (Verified 10/13/23 11:47)
Rash; tolerated ampicillin, piperacillin 09/25/23
atorvastatin [From Lipitor] Allergy (Verified 10/13/23 11:47)
muscle cramps
Cephalosporins Allergy (Verified 10/13/23 11:47)
Rash
clarithromycin Allergy (Verified 10/13/23 11:47)
Rash
levofloxacin [From Levaquin] Allergy (Verified 10/13/23 11:47)
Unknown
niacin Allergy (Verified 10/13/23 11:47)
Unknown
pneumococcal vaccine Allergy (Verified 10/13/23 11:47)
Swelling
Sulfa (Sulfonamide Antibiotics) Allergy (Verified 10/13/23 11:47)
Rash
sulfisoxazole Allergy (Verified 10/13/23 11:47)
Rash
potasium clavunate Allergy (Uncoded 09/24/23 07:50)
Unknown
Review of Systems
-
History Source: Patient
All other systems: Reviewed and negative
Constitutional: No Symptoms
EENT: No Symptoms Reported
Respiratory: No Symptoms
Cardiac: No Symptoms
Abdomen/GI: No Symptoms
Genitourinary: No Symptoms
Musculoskeletal: No Symptoms
Skin: No Symptoms
Neuro: See existing Neuro Note
Endocrine: No Symptoms
Hematologic / Lymphatic: No Symptoms
Allergy / Immunology: No Symptoms
Physical Exam
-
General: Comfortable
Eyes: No Ptosis
HEENT: Normocephalic
Neck: Other (Left CEA incision clean dry intact)
Respiratory: Clear to Auscultation
Cardiac: Regular Rhythm
GI: Normal Bowel Sounds
Skin: Unremarkable
Extremities: No Clubbing
Psych: Unremarkable
Extended Neurological Exam
Mood & Affect: Mood Unremarkable and Affect Unremarkable
Attention Span & Concentration: Awake, Alert and Interactive
Memory: Unremarkable
Tremor: Hand Tremor Absent
Involuntary Movement: None
Speech: Quality Unremarkable, Quantity Unremarkable and Dysarthric; Negative Expressive Aphasia or Receptive Aphasia
Cranial Nerve II: Left Eye: Pupillary Reactivity Unremarkable, Pupillary Size Unremarkable and Visual Barkley Intact
Cranial Nerve II: Right Eye: Pupillary Reactivity Unremarkable, Pupillary Size Unremarkable and Visual Barkley Intact
Cranial Nerves III, IV, : Extraocular Movement: Extraocular Movement Full in all Directions
Cranial Nerve VII: Facial Symmetry: Normal Facial Symmetry
Muscle Strength, Overall: Full Throughout
Pronator Drift: No Drift in Upper Extremities
Deep Tendon Reflexes: Trace Throughout
Touch Sensation: Other (Intact to light touch in arms and legs no sensory neglect)
Coordination: [id number]-[id number]-acmkac Testing Unremarkable
Data Reviewed
-
CT-A: Report Reviewed and Image Reviewed
MRI Head: Ordered and Pending
Echocardiogram: Ordered and Pending
EEG: Ordered and Pending
Labs: Report Reviewed
Lipid Profile: Report Reviewed
[2023-10-14 08:06] VITALS: BP 144/80
[2023-10-14] MEDS: NICODERM TRANSDERMAL 14 MG TRANSDERM (09:06)
[2023-10-14] MEDS: PLAVIX PO (09:11)
--- NOTE | 2023-10-14 09:13 | W.PN.UPDATE ---
Update Note
Progress Note Update
Patient s/p L CEA on 09/26/2023. Now admitted after concern for further TIAs.
She been doing at home up until the day of admission when she reported that while walking she suddenly felt shaking/tremors in her right upper and lower extremity. She said she fell as a result but did not lose consciousness and did not hit her
head. She states that she is now back to baseline. Her only complaint currently is wanting her nicotine patch, and otherwise she states she feels well.
L neck incision c/d/i, no hematomas. Minimal dysarthria. 5/5 strength bilaterally.
I personally reviewed her imaging. She has a CTA neck from her prior admission which shows no issue with her left repair. Her right common and internal carotid artery are occluded. Given the total occlusion there is no revascularization option for
this. Recommend continued medical management and work up per neurology.
--- NOTE | 2023-10-14 09:40 | PTOTSP ---
Speech Therapy
Presentation: Patient was oriented. Patient's speech and language appeared to be WNL during conversation. Patient's voice appeared to be breathy during conversation. Patient denied any communicative deficits.
Previous ST: 09/27/23 VSE: SR. CONSULTANT recommended puree solids and thin liquids. See 09/26 Speech VSE note for details.
08/02/23 VSE: penetration and aspiration noted. Recommended regular consistency solids and thin liquids due to lack of pna. See 08/02/23 VSE note for details.
Swallowing Function: SR. CONSULTANT trialed thin liquids (cup with head turn to the left- previous ST compensatory strategies) and tsp presentations of puree in which patient demonstrated immediate coughing (wet) and throat clearing. Patient stated 'this
sucks' during coughing episode. No further presentations were trialed as patient was not interested in continuing.
Given the above information, hx of dysphagia, and presentation, recommend NPO with VSE to quantify swallowing function. Not appropriate for ARHP at this time due to presentation.
Recommendations:
1) NPO at this time
2) VSE to quantify swallowing function
3) Medications administered not by mouth
4) Vigorous oral care
Plan: SR. CONSULTANT will continue to follow; pending hospitalization.
[2023-10-14 10:15] VITALS: BP 114/55; PULSE 84; O2SAT 94
[2023-10-14 11:35] LABS: VerifyNow Aspirin 400 ARU
--- NOTE | 2023-10-14 11:50 | PTCARENOTE ---
Patient NIH 3 for partial gaze on left; mild slurring; and LOC. Patient drowsy but easily arousable. Left side slightly weaker than right. Patient with moist cough and slightly gurgling speech. As per speech therapist maintain NPO status. MD
notified and Chest xray ordered. Patient currently at MRI for head. PT attempted to work with patient but patient with weakness and stated she was fatigued so limited therapy today.
[2023-10-14 12:41] VITALS: BP 138/56
--- NOTE | 2023-10-14 13:01 | W.PN.HOSP.TC ---
Today's Communication/Plan
-
Discharge today
Assessment / Plan
Assessment / Plan
Physical Exam
General: No Apparent Distress and Comfortable
HEENT: Normocephalic, Moist mucous membranes
Respiratory: Clear
Cardiac: S1/S2, Regular Rhythm and Murmur
GI: Soft, Non Tender, Non Distended and Normal Bowel Sounds
Musculoskeletal: No Cyanosis and No Edema
Skin: Warm
Neuro: AAO x 3. Cranial Nerves Grossly Intact. Strength grossly intact bilaterally. Sensation grossly intact bilaterally.
Psych: Calm

IMPRESSION:
77-year-old with a history of left carotid stenosis status post left carotid endarterectomy, possible history of TIA, GERD, hyperlipidemia, COPD, tobacco dependence with approximately 2-week status post the carotid endarterectomy coming in with
episode of left-sided weakness in the upper and lower extremity as well as tremors. Normal exam the patient is NIHSS equals 0. She appears to have recovered back to baseline with symptoms lasting for minutes to hours. The CT of the head shows no
acute intracranial process. There is concern for a TIA or a small evolving CVA.
PLAN:
#TIA/CVA - High risk patient already on DAPT. Seen by neuro
#Status post left CEA on 09/26/2023
#Shaking/tremors in right upper and lower extremity with resulting fall
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
- continue DAPT, statin
- Family - niece (who is a nurse) and sister (who has worked in hospice before) insisted that they would like to take patient to home with home hospice to sister's home in [place]
- No plans Eliquis and aspirin at this time which can increase bleeding risk which would affect quality of life
- MRI/MRA with stroke -- likely a few weeks old
- neurology consulted and notified, vascular surgery consulted per neurology.
#COPD - Stable
- continue ICS/laba/glycopyrolate per home
- prn albuterol inh
- nicotine patch
#HTN
- continue losartan
#Urinary frequency - possibly uti
- urinalysis with reflex to culture pending
DVT PPX - lovenox sq
DNR
Today, I spoke to patient's sister Kierra (who has worked in the field of hospice) and her niece (who is a nurse), inside the patient's room. They insisted that they take the patient today to a family home in [place], followed by patient's sister's
home in [place], where they plan to have her be enrolled in home with home hospice.
More than 30 minutes spent in discharge including
Final examination of the patient
Summarizing hospital stay
Instructions for continuing care to all relevant caregivers
Preparation of discharge records, prescriptions, and referral forms
Total time spent (in minutes): 40
Anticipated Discharge: Today
Subjective/Interval History
-
Date of Service: October 14, 2023
Patient was seen and examined. She reported no new significant symptoms or complaints.
Objective Data
-
Vital Signs:
Vital Signs
Temp Pulse Resp BP Pulse Ox
98 F 104 18 138/56 95
10/14/23 12:41 10/14/23 12:41 10/14/23 12:41 10/14/23 12:41 10/14/23 12:41
[2023-10-14] MEDS: TYLENOL 650 MG PO (13:07)
--- NOTE | 2023-10-14 14:09 | CM ---
Addendum entered by Maribell Hines 10/14/23 14:54:
[facility] fax number [phone], out of hospital DNR on chart for physician to sign
Addendum entered by Maribell Hines 10/14/23 14:48:
Physician aware and coming to talk to patient and family., [facility] aware and will call tomorrow am [phone] Crystal number provided to patient and sister.
Addendum entered by Maribell Hines 10/14/23 14:35:
Patient sister's home [address] [place], Per patient niece and sister they would like to leave tonight and meet hospice in am. CM called to [facility] and requested call back. CM spoke with physician who is coming to talk to
patient and family, nurse also made aware.
Original Note:
Patient seen at bedside, with sister Kierra and bee. Patient signed OBS/AVILA and form placed on chart. Patient and family discussed options. Patient has been living alone in a 2 story home with several hospitalizations and last one she signed AMA
per family. Patient updated CM that she now has made plans to go to her sister's home in [place] and referrals made via all scripts and await responses. Family open to who ever would come to the home; [facility], [facility] and [facility],
[facility] sent referral. CM updated nursing and attempted to reach physcian to update him. CM will continue to follow for discharge planning needs.
Plan; home to sister's in [place] on hospice.
[2023-10-14 14:48] VITALS: BMI 15.7
--- NOTE | 2023-10-14 15:09 | PTCARENOTE ---
Patient's family and patient have made decision that she would like to be discharged on hospice today. Family will transport patient. Awaiting MD to sign out of hospital DNR. Case management has sent required documentation to hospice.
[2023-10-14 15:16] VITALS: BP 162/75
--- NOTE | 2023-10-14 15:40 | PTCARENOTE ---
Removed peripheral IV and tele. Awaiting discharge orders. Sister and niece at the bedside to transport.
--- NOTE | 2023-10-14 15:50 | W.DS.TRANS ---
DC Summary - Aquatics Coordinator
-
Discharge Instructions:
Discharge Diagnosis/Procedures #TIA/CVA
#Status post left CEA on 09/26/2023
#Shaking/tremors in right upper and lower
extremity with resulting fall
#Total occlusion of right common and internal
carotid arteries
#Chronic Obstructive Pulmonary Disease
#Hypertension
#Urinary frequency
Diet As tolerated
Activity With assistance
Driving Restrictions No driving
Other Services Hospice
Instructions:
Stand-Alone Forms:
Changes to Home Medications: No
Discharge Medications:
DC Medications w/original date entered in [email or web address]
losartan 50 mg tablet 50 mg PO HS Blood Pressure 03/30/23
pravastatin 80 mg tablet 80 mg PO HS High Cholesterol 03/30/23
cholecalciferol (vitamin D3) 25 mcg (1,000 unit) tablet (Vitamin D3) 1,000 mcg PO SA@2200 Supplement 09/14/23
budesonide 160 mcg-glycopyr 9 mcg-formot 4.8 mcg/actuation HFA inhaler (Breztri Aerosphere) 2 inh inhalation R BID Lung/Breathing Issues 09/24/23
omeprazole 40 mg capsule,delayed release 40 mg PO DAILY gerd 09/24/23
Maalox 1 packet PO TU Constipation 10/13/23
albuterol sulfate 90 mcg/actuation aerosol inhaler (ProAir HFA) 2 puff inhalation R Q4HPRN PRN sob/wheezing 10/13/23
aspirin 81 mg tablet,delayed release 81 mg PO DAILY Blood Clot Prevention/Tx 10/13/23
clopidogrel 75 mg tablet 75 mg PO DAILY Blood Clot Prevention/Tx 10/13/23
fluticasone propionate 50 mcg/actuation nasal spray,suspension 2 spray intranasal DAILY Allergies 10/13/23
nicotine 14 mg/24 hr daily transdermal patch 1 patch transdermal DAILY Smoking Cessation 10/13/23
Home Medication Changes
Pending Results: No
Total time spent discharging patient (in min): 40
--- NOTE | 2023-10-14 16:07 | PTCARENOTE ---
Patient left via wheelchair with staff member and family. Denies questions at this time.
--- NOTE | 2023-10-16 20:51 | W.DCSUMMARY ---
Discharge Summary
Discharge Data
Date of Admission: 10/13/23
Date of Discharge: 10/14/23
Total time spent discharging patient (in min): 40
-
Pending Results: No
Hospital Course
77-year-old female with a past medical history of left carotid stenosis status post left carotid endarterectomy, possible history of transient ischemic attack (TIA), GERD, hyperlipidemia, COPD, tobacco dependence with approximately 2-week status
post the carotid endarterectomy presented with episode of left-sided weakness in the upper and lower extremities as well as tremors and dance-like movements on the left side. Patient was admitted and neurology was consulted -- the impression was
that patient had a rare form of TIA's (limb shaking TIA) producing brief involuntary movements of left arm and leg secondary to right carotid artery stenosis versus occlusion. It was determined that seizure was less likely. Patient was recommended
to continue on Aspirin and Clopidogrel and vascular surgery was consulted.
Vascular Surgery noted that patient's right common and internal carotid artery are occluded and that given the total occlusion there is no revascularization option for this; they recommended continued medical management and work up per neurology.
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
niece (who was a nurse) and patient's sister (who has worked in the field of hospice). Family insisted (and patient agreed) that they take the patient today to a family home in [place], followed soon by patient's sister's home in [place], where
they plan to have her be enrolled in home with home hospice. Case was discussed with the hospitalist neurologist on-call and vascular surgeon on-call, and they both agreed hospice is appropriate for this patient from a vascular/stroke point of view.
Neurology mentioned that given patient's stroke and vascular disease, increasing medical regimen of Aspirin and Eliquis would be the next step for stroke prevention if we were to pursue maximum medical therapy but this would come with increased
bleeding risks that may affect quality of life for the future, given the patient was going on hospice, and that if the patient and her family want to pursue minimizing of medications and take medications only for comfort (stopping antithrombotics)
then patient would be at high risk for stroke that could lead to her which could reasonably happen, given her comorbidities (e.g. advanced COPD), within 6 months.
Discharge Plan
-
Patient Disposition: Home with Hospice
Discharge Diagnosis/Procedures: #TIA/CVA
#Status post left CEA on 09/26/2023
#Shaking/tremors in right upper and lower extremity with resulting fall
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
#Chronic Obstructive Pulmonary Disease
#Hypertension
#Urinary frequency
Condition: Serious
Diet: As tolerated
Activity: With assistance
Driving Restrictions: No driving
Other Services: Hospice
Activity Restrictions/Additional Instructions:
Given patient's stroke and vascular disease, increasing medical regimen of Aspirin and Eliquis would be the next step for stroke prevention if we were to pursue maximum medical therapy but this would come with increased bleeding risks that may
affect quality of life for the future, given the patient was going on hospice, and that if the patient and her family wanted to pursue minimizing of medications and take medications only for comfort (stopping antithrombotics) then patient would be
at high risk for stroke that could lead to her which could reasonably happen, given her comorbidities (e.g. advanced COPD), within 6 months.
Referrals:
Leonie Lugo CRNP [Family Provider] - in one to two days
Prescriptions:
Continued
losartan 50 mg tablet
50 mg PO HS
pravastatin 80 mg tablet
80 mg PO HS
cholecalciferol (vitamin D3) [Vitamin D3] 25 mcg (1,000 unit) Tablet
1,000 mcg PO SA@2200
Patient Comments:
only on saturdays
omeprazole 40 mg Capsule,Delayed Release(Dr/Ec)
40 mg PO DAILY
Breztri Aerosphere 160-9-4.8 mcg/actuation Hfa Aerosol Inhaler
2 inh INHALATION R BID
nicotine 14 mg/24 hr Patch 24 Hour
1 patch TRANSDERMAL DAILY
Patient Comments:
10/13/2023, pt. currently wearing a patch on her left shoulder.
clopidogrel 75 mg Tablet
75 mg PO DAILY
Patient Comments:
10/13/2023, pt. filled this med. on 10/01/2023 for 16-day supply.
aspirin 81 mg tablet,delayed release (DR/EC)
81 mg PO DAILY
Patient Comments:
10/13/2023, pt. filled this med. on 10/01/2023 for 16-day supply.
albuterol sulfate [ProAir HFA] 90 mcg/actuation Hfa Aerosol Inhaler
2 puff INHALATION R Q4HPRN PRN (Reason: sob/wheezing)
fluticasone propionate 50 mcg/actuation [place],Suspension
2 spray INTRANASAL DAILY
Maalox powder
1 packet PO TU
Discharge Orders:
Discharge Patient (As Directed); Ordered 10/14/23
Ordered By: Parth Pickett
Discharge Date and Time
Discharge Date/Time: 10/14/23 16:15
Print Language: JORDANIAN
== END 2023-10-14 16:15 | disposition hospice, home (50) ==
LOC: 4 EAST ACU 14:59
PROVIDERS: ADMITTING PHYSICIAN Internal Medicine; ATTENDING PHYSICIAN Hospitalist; EMERGENCY PHYSICIAN Emergency Medicine; FAMILY PHYSICIAN Nurse Practitioner; OTHER PHYSICIAN Student in an Organized Health Care Education/Training Program
DX: I63.89 Other cerebral infarction (principal); E78.00 Pure hypercholesterolemia, unspecified; J44.9 Chronic obstructive pulmonary disease, unspecified; G47.33 Obstructive sleep apnea (adult) (pediatric); I73.9 Peripheral vascular disease, unspecified; F41.9 Anxiety disorder, unspecified; R13.10 Dysphagia, unspecified; F17.200 Nicotine dependence, unspecified, uncomplicated; R35.0 Frequency of micturition; I65.21 Occlusion and stenosis of right carotid artery; I10 Essential (primary) hypertension; Z66 Do not resuscitate; Z79.02 Long term (current) use of antithrombotics/antiplatelets; Z79.82 Long term (current) use of aspirin; Z79.899 Other long term (current) drug therapy; Z86.73 Personal history of transient ischemic attack (TIA), and cerebral infarction without residual deficits; Z51.5 Encounter for palliative care
CPT/HCPCS: 70450; 70551; 71046; 80053; 80061; 81003; 82962; 83735; 84443; 85027; 85576; 92610; 93005; 94640; 97163; 99285; G0378